=== PATIENT | female | born 1990 ===

== ENCOUNTER 2023-08-11 19:23 | Inpatient (IN) ==
[2023-08-11] MEDS ORDERED: LIDOCAINE 1% LOCAL 20 ML VIAL INFIL PRN (19:34)
--- OUTSIDE RECORDS SUMMARY | 2023-08-11 19:34 | External Medical Summary | Summary of Care ---
Author Name Unknown Organization [facility] Address [address] [place] [address] Phone [phone] Care Team Providers Care High Lift Operator Name Role Phone Unavailable Primary Care Provider Unavailabl e Reason for Visit * Reason Onset Date Comments TRIAGE 08/11/2023 Encounter Details Date Type Department Care Team (Late st Contact Info) Description 08/11/2023 Telephone [facility] [place] [address] [place] [address] Kay Harkins, [address] [place] [address] TRIAGE Allergies Active Allergy Reactions Criticality Noted Date Comments Tetanus Toxoid 03/22/2009 Leg swelling documented as of this encounter (statuses as of 08/11/2023) Medications Medication Sig Dispensed Refills Start Date End Date Status Vitamin 27-0.8 MG Oral Tablet Take by mouth. 0 Active Ferrous Sulfate 325 (65 Fe) MG Oral Tablet (Feosol)Indications:A ntepartum anemia complicating Take 1 Tablet by mouth in the morning and 1 Tablet before bedtime. 60 Tablet 3 06/04/2023 Active Vitamin C 250 MG Oral Tablet ChewableIndications:A ntepartum anemia complicating Take 1 Tablet by mouth in the morning and 1 Tablet before bedtime. Take with iron. 60 Tablet 3 06/04/2023 Active Vitamin B-12 1000 MCG Oral Tablet (Cyanocobalamin)Indic ations:Antepartum anemia complicating Take 1 Tablet by mouth in the morning. 30 Tablet 3 06/04/2023 Active OneTouch Verio Flex System w/Device KitIndications:Gestat ional diabetes mellitus (GDM), antepartum, gestational diabetes method of control unspecified Use to test blood sugars 4 times daily (fasting, 1 hour after breakfast, lunch, and dinner) 1 Kit 0 06/04/2023 Active SolarCity In Vitro Strip (Glucose Blood)Indications:Ges tational diabetes mellitus (GDM), antepartum, gestational diabetes method of control unspecified Use to test blood sugars 4 times daily (fasting, 1 hour after breakfast, lunch, and dinner) 125 Strip 6 06/04/2023 Active Doblet [employer] Lancets 30GIndications:Gestat ional diabetes mellitus (GDM), antepartum, gestational diabetes method of control unspecified Use to test blood sugars 4 times daily (fasting, 1 hour after breakfast, lunch, and dinner) 200 Each 6 06/04/2023 Active Breast Pump Dispense double electric breast pump. Dx:Z39.1 1 Each 0 07/15/2023 Active Sertraline HCl 100 MG Oral Tablet (Zoloft)Indications:G AD (generalized anxiety disorder) Take 1 Tablet by mouth in the morning. In the morning.. 30 Tablet 3 07/16/2023 Active documented as of this encounter (statuses as of 08/11/2023) Active Problems Problem Noted Date Diagnosed Date with 27 completed weeks gestation 05/17 Gestational diabetes mellitus (GDM), antepartum 06/04/2023 Overview: Diagnosed at 27 weeks Nutrition consult ordered Lab Results Component Value Date/Time 50-G GESTATIONAL GLUCOSE, 1 HOUR - [facility] 196 (H) 03/06/2023 02:51 PM 100-G GESTATIONAL GLUCOSE, 1 HOUR - [facility] 226 (H) 06/03/2023 09:08 AM 100-G GESTATIONAL GLUCOSE, 2 HOUR - [facility] 201 (H) 06/03/2023 10:08 AM 100-G GESTATIONAL GLUCOSE, 3 HOUR - [facility] 150 (H) 06/03/2023 11:06 AM 100-G GESTATIONAL GLUCOSE, FASTING - [facility] 109 (H) 06/03/2023 08:03 AM She reports her home blood glucose as following: DATE Fasting 1 hr after Breakfast 1 hr after Lunch 1 hr after Dinner 06/04/23 Picked up meter 06/05/2023 95 Fasted 12 hours 132 87 x 06/05/23: MFM ADAPT consult complete. Enrolled in [facility]. Instructions provided to report blood sugars each week for MFM review Discussed having bedtime snack (20-30 gr carbohydrate + protein) and fasting for no longer than 8-10 hours overnight. 06/10/23- elevated sugars will schedule patient for follow up adapt appt 06/12/23: ADAPT visit complete; some elevated FBS; patient deferred starting medication today as she feels that her FBS are improving with fasting 9 hours overnight along with having a bedtime snack; agreeable to F/U ADAPT - scheduled on 06/17/2023 @ 8AM 06/17/23: ADAPT follow-up completed. Almost all FBS WNL; only one elevation this morning. Continue diet control; Nutrition consult scheduled tomorrow (06/17). Patient prefers to schedule F/U ADAPT if needed; will review via [facility] [employer] in 1 week. 06/24/23: RPM reviewed; stable; continue diet controlled 07/02/23-stable 07/08/23: RPM reviewed. Blood sugars stable; continue diet control. 07/15/23: RPM reviewed. A few PP elevations, but stable overall. Continue diet control. 07/22/23: RPM reviewed; overall stable. Continue diet control. 07/29/[id number] 08/05/23: RPM reviewed; Stable Last Assessment & Plan: Working with ADAPT. Antepartum anemia complicating 024 Overview: Rx iron and vit B12 27 wks Uterine fibroid in 01/29/2023 Overview: Uterine fibroids noted in dating ultrasound EXAM: US PELVIS TRANS-VAGINAL OB 01/29/2023 HISTORY: dating COMPARISON: None available FINDINGS: Patient's reported last menstrual. Date of 11/25/2022 currently corresponds to mean menstrual age 9 weeks 2 days. Uterus is enlarged and somewhat lobulated. It is visualized myometrial echotexture is heterogeneous. Three focal lesions are identified which are nonspecific but compatible with uterine leiomyoma/fibromas. One is located in the lower uterine segment to right of midline measuring 6.4 cm x 5.4 cm x 5.6 cm. A 2nd is located in the lower uterine segment to left of midline measuring approximally 3.6 cm x 2.5 cm x 3.3 cm. A 3rd is located in the fundus of the uterus measuring approximately 10.2 cm x 7.5 cm x 12.8 cm Within the uterus is demonstrated an ovoid structure compatible with gestational sac. A yolk sac is identified measuring 3 mm in diameter. An embryo is identified with mean crown-rump length of 21 mm corresponding to mean menstrual age 8 weeks 5 days +/-5 days and corresponding to CLAUDINE of 09/05/2023. Positive heart motion is seen with a current documented rate of 178 beats per minute. Right ovary: 4.1 cm x 2.6 cm x 1.6 cm corresponding to volume approximately 9 cc. Left ovary: 4.1 cm x 1.8 cm x 2.2 cm corresponding to volume approximately 8 cc. Each ovary contains a tiny subcentimeter ovoid well-defined sonolucent (allowing for technical artifact) structure ultrasonographically nonspecific but compatible with follicles. Additionally in the right ovary there is a complex predominantly hypoechoic to isoechoic area measuring approximally 2.4 cm x 2.0 cm x 2.0 cm. It is nonspecific but could reflect complicated cyst perhaps corpus luteal in nature. There is otherwise no adnexal mass or cul-de-sac fluid. IMPRESSION: Single intrauterine gestation with CLAUDINE of 09/05/2023 based upon current mean crown-rump length. Leiomyomatous uterus. Please see above discussion. Last Assessment & Plan: I reviewed the ultrasound with her. The anatomy that was visualized appears unremarkable and the overall estimated weight is consistent with the 60th percentile for the gestational age. The fetus is in the breech presentation and the amniotic fluid volume is normal at 16 cm. The fibroids are again seen. The largest fibroid measures 10 cm in its largest diameter and there is necrosis/liquefaction in the center. The other fibroid measures 7.1 cm. There is essentially no change in the size of the fibroids since the last ultrasound. The patient had questions regarding timing of delivery and where she should deliver. I told her that the fibroids are not a medical indication for delivery. At this point, they do not appear to be affecting the growth of the fetus. With respect to where she should deliver, I told her that she should discuss this with her primary OB provider. Due to the size of the fibroids, we will bring her back in 4 weeks for an evaluation of growth. Supervision of high risk in [facility] 01/29/2023 Obesity affecting 01/29/2023 Overview: Pre gravid BMI: 33.6 Class 1 obesity 1 hour GTT ordered but not yet completed by patient Baseline Preeclampsia Labs Lab Results Component Value Date/Time PLATELET AUTO - [facility] 308 01/29/2023 10:28 AM Last Assessment & Plan: She presents for a anatomy survey secondary to class I obesity, multiple uterine fibroids, anxiety, and a history of COVID in (18 weeks). Labs reviewed: -- early 1 hour GCT elevated at 196 -- plans 3 hour GTT tomorrow -- genetic screening ordered but not completed -- reviewed some considerations regarding testing with them, which they will consider further and obtain the test if desired We reviewed the results of today's ultrasound. The estimated weight is appropriate for gestational age. The visualized anatomy is unremarkable in appearance. The amniotic fluid amount appears normal. Multiple uterine fibroids are noted. The largest measures 13.7 cm and the next largest is 6.3 cm. They do not appear to obstruct the lower uterus. We discussed that ultrasound is not able to identify all anomalies, but it is reassuring that no anomalies were seen today. Anxiety during 01/29/2023 Overview: Anxiety Follows with psychology and psychiatry Doing well on Zoloft Reports a stable mood in . Denies any suicidal or homicidal ideation. Reports she has a good support system at home. Last Assessment & Plan: ANXIETY AND DEPRESSION CONSIDERATIONS: Untreated maternal anxiety and depression may be associated with an increased risk of multiple poor obstetrical outcomes including miscarriages, low weight, and delivery. Women with a history of anxiety or depression are at risk for recurrence both during and/or the period. Studies of first-trimester SSRI exposure do not demonstrate consistent data to support an increased risk for structural malformations. Anti-anxiety or depression medications have been associated with transient effects (withdrawal syndrome). RECOMMENDATIONS: Mental illness can and should be treated during when the benefits of treatment outweigh potential risks. Referral to behavioral health services as clinically indicated. Anxiety 01/28/2023 Shortness of breath 05/06/2009 Lumbago 03/22/2009 Estimated Date of Delivery Comme nts Yes 09/01/2023 Based on last me nstrual period of 11/25/2022 (Exact Date) documented as of this encounter (statuses as of 08/11/2023) Resolved Problems Problem Noted Date Diagnosed Date Resolved Date Supervision of high risk pre gnancy in first trimester 02/11/2023 06/04/2023 with 11 completed weeks gestation 02/11/2023 04/10/2023 documented as of this encounter (statuses as of 08/11/2023) Social History Tobacco Use Types Packs/Day Years Used Date Smoking Tobacco: Never Smokeless Tobacco: Never Alcohol Use Standard Drinks/Week Comments Not Currently 0 (1 standard drink = 0.6 oz pur e alcohol) denies during AUDIT-C Answer Date Recorded Q1: How often do you have a drink containing alc ohol? 2-4 times a month 05/14/2022 Q2: How many drinks containi ng alcohol do you have on a typical day when you are drinking? 1 or 2 05/14/2022 Q3: How often do you have si x or more drinks on one occasion? Never 05/14/2022 Hunger Vital Sign Answer Date Recorded Within the past 12 months, y ou worried that your food would run out before you got the money to buy more. Never true 01/16/20 Within the past 12 months, t he food you bought just didn't last and you didn't have money to get more. Never true 01/15/2023 [place] Depression Scale Answer Date Recorded [place] Depression Scale Total 3 08/06/2023 The thought of harming myself has occurred to me . Never 08/06/2023 Estimated Date of Delivery Comme nts Yes 09/01/2023 Based on last me nstrual period of 11/25/2022 (Exact Date) Sex and Gender Information Value Date Recorded Sex Assigned at Female 01/15/2023 7:13 PM EDT Gender Identity Female 01/15/2023 7:13 PM EDT Sexual Orientation Straight 01/15/2023 7: 13 PM EDT Job Start Date Occupation Industry Not on file Not on file Not on file documented as of this encounter Miscellaneous Notes * Telephone Encounter - Kay Harkins DO - 08/11/2023 7:01 PM EDT 08/11/2023 7:01 PM Stella Kern is a 32 year old at 37w0d, with scheduled on 08/28. Patient reports that she is concerned that she has had leakage of fluid with continuous leakage since about an hour ago with significant pain and contractions. Reports that she has her scheduled section given breech p resentation. Reports that [place]5 [place] [facility] [place] [facility] is about 5 minutes away. Recommended to patient that she be evaluated at [facility] instead of [facility]. All questionsanswered, she will present for [facility] for evaluation. Kay Harkins DO documented in this encounter Plan of Treatment Upcoming Encounters Date Type Department Care Team (Latest Contact Info) Description 08/12/2023 10:15 AM EDT Office Visit [facility] [address] [facility] [place] [address] Zhanna Noble CRNP [address] [place] [address] 08/15/2023 9:45 AM EDT Office Visit Protector Plate Attacher Obstetrics Maternal Medicine, [place] [address] [place] [address] Bam [place] DO [address] [place] [address] 08/15/2023 9:45 AM EDT Imaging Radiology [facility], [place] [address] [place] [address] 08/19/2023 11:30 AM EDT Office Visit Gynecology/Obstetri cs [address] [place] [address] Zhanna Noble CRNP [address] [place] [address] 08/29/2023 1:00 PM EDT Hospital Encounter [facility], Women's Lower Level 1st Floor [address], [place] [id number] Armani Mccurdy MD [address] [place] [address] 08/29/2023 1:00 PM EDT - 08/29/2023 3:26 PM EDT Surgery [facility] [facility], Women's Lower Level 1st Floor [address], [place] [id number] Armani Mccurdy MD [address] [place], [place] [id number] DELIVERY AND CARE 10/15/2023 10:00 AM EDT Telemedicine Psychiatry, [place] [address], [place] [id number] Bam Doe CRNP [address] [place] [address] Scheduled Procedures Name Priority Associated Diagnoses Date/Ti me DELIVERY AND CARE 39 weeks gestation of 08/29/2023 1:00 PM EDT Health Maintenance Due Date Last Done Comments Depression Screening 2000 Hepatitis B (1 of 3 - 19+ 3-dose series) 12/28/2007 COVID-19 Vaccine (2022-2 4 season) 2022 12/05/2020, 08/31/2020 Influenza Vaccine (FLU shot) (Season Ended) 2023 Pap Smear 01/29/2026 01/29/2023 Cervical Cancer Screening 01/30/2028 HPV/Co-Test 01/30/2028 01/29/2023 GARDASIL-HPV IMMUNIZATION SERIES Aged Out No longer eligible b ased on patient's age to complete this topic MENINGOCOCCAL (MENACTRA/MENVEO) Aged Out No longer eligible b ased on patient's age to complete this topic Pneumococcal Vaccine: Pediatrics (0 to 5 Years) and At-Risk Patients (6 to 64 Years) Aged Out No longer eligible b ased on patient's age to complete this topic documented as of this encounter Medical Devices Not on filedocumented as of this encounter
[2023-08-11] MEDS ORDERED: DEXTROSE 50% 50 ML SYRINGE IV PRN (19:35)
[2023-08-11] MEDS ORDERED: INSULIN REGULAR 250 UNITS in SODIUM CHLORIDE 0.9% 247.5 ML IV PRN (19:35)
[2023-08-11] MEDS ORDERED: SODIUM CHLORIDE 0.9% 1,000 ML IV PRN (19:35)
[2023-08-11] MEDS ORDERED: DEXTROSE 5% 1,000 ML IV PRN (19:35)
--- OUTSIDE RECORDS SUMMARY | 2023-08-11 19:35 | External Medical Summary | Summary of Care ---
Author Name Unknown Organization [facility] Address [address] [place] [address] Phone [phone] Care Team Providers Care General Farmworker Name Role Phone Unavailable Primary Care Provider Unavailabl e Reason for Visit * Reason Onset Date Comments Appointment 07/22/2023 Encounter Details Date Type Department Care Team (Late st Contact Info) Description 07/22/2023 Telephone Gynecology/Obstetrics [facility] [address] [facility] [[email or web address]] [place] [address] Zhanna Noble CRNP [address] [facility] [place] [address] Appointment Allergies Active Allergy Reactions Criticality Noted Date Comments Tetanus Toxoid 03/22/2009 Leg swelling documented as of this encounter (statuses as of 07/23/2023) Medications Medication Sig Dispensed Refills Start Date [...] the morning. 30 Tablet 3 06/04/2023 Active Perform[employer] Flex System w/Device KitIndications:Gestat ional diabetes mellitus (GDM), antepartum, gestational diabetes method of control unspecified Use to test blood sugars 4 times daily (fasting, 1 hour after breakfast, lunch, and dinner) 1 Kit 0 06/04/2023 Active ProcureNet[employer]en[employer]ze In Vitro Strip (Glucose Blood)Indications:Ges tational diabetes mellitus (GDM), antepartum, gestational diabetes method of control unspecified Use to test blood sugars 4 times daily (fasting, 1 hour after breakfast, lunch, and dinner) 125 Strip 6 06/04/2023 Active [employer]choice Delica Lancets 30GIndications:Gestat ional diabetes mellitus (GDM), antepartum, [...] as of this encounter (statuses as of 07/23/2023) Active Problems Problem Noted Date Diagnosed Date [...] hr after Lunch 1 hr after Dinner 2/20/24 Picked up meter 06/05/2023 95 Fasted 12 [...] RPM reviewed; overall stable. Continue diet control. Last Assessment & Plan: Working with ADAPT. [...] of growth. Supervision of high risk in [facility] 01/29/2023 Obesity affecting 01/29/2023 Overview: Pre gravid [...] as of this encounter (statuses as of 07/23/2023) Resolved Problems Problem Noted Date Diagnosed Date Resolved Date Supervision of high risk pre gnancy in first trimester 02/11/2023 06/04/2023 with 11 completed weeks gestation 02/11/2023 04/10/2023 documented as of this encounter (statuses as of 07/23/2023) Social History Tobacco Use Types Packs/Day Years [...] money to buy more. Never true 01/16/20 23 Within the past 12 months, t he food you bought just didn't last and you didn't have money to get more. Never true 01/15/2023 [place] Depression Scale Answer Date Recorded [place] Depression Scale Total 4 01/29/2023 The thought of harming myself has occurred to me . Never 01/29/2023 Estimated Date of Delivery Comme nts Yes [...] encounter Miscellaneous Notes * Telephone Encounter - Ketty Padilla RN - 07/23/2023 10:37 AM EDT Patient wants to establish care at peds for baby, would like to discuss setting up an appointment to meet with a copper plater prior to delivery. Is there a scheduling pool you can forward to? I am not familiar with the pediatrics pools. * Telephone Encounter - Helen Bravo LPN - 07/23/2023 10:33 AM EDT Please route to correct pool. Not a peds patient. * Telephone Encounter - Ketty Padilla RN - 07/23/2023 10:32 AM EDT Please see below. * Telephone Encounter - Kelly Garcia LPN - 07/23/2023 10:07 AM EDT This is not a family practice patient. Routing to ENGINEERING PATTERNMAKER. * Telephone Encounter - Caroline Corona OSA - 07/22/2023 5:58 PM EDT Pts called in stating they are due August 31 and are requesting to get set up with a copper plater and they are interested in being set up with Sedrick payton in [place] as their copper plater. documented in this encounter Plan of Treatment Upcoming Encounters Date Type Department Care Team (Late st Contact Info) Description 08/05/2023 10:15 AM EDT Office Visit Gynecology/Obstetrics [facility] [address] [facility] [[email or web address]] [place] [address] Zhanna Noble CRNP [address] [place] [address] 08/12/2023 10:15 AM EDT Office Visit Gynecology/Obstetrics [facility] [address] [facility] [place] [address] Zhanna Noble CRNP [address] [place] [address] 08/15/2023 9:45 AM EDT Office Visit Employment And Claims Aide Obstetrics Maternal Medicine, [place] [address] [place] [address] Bam [place] DO [address] [place] [address] 08/15/2023 9:45 AM EDT Imaging Radiology [facility] [place] [address] [place] [address] 08/19/2023 11:30 AM EDT Office Visit Gynecology/Obstetrics [address] [place] [address] Zhanna Noble CRNP [address] [place] [address] 10/15/2023 10:00 AM EDT Telemedicine Psychiatry, [place] [address] [place] [address] Bam Doe CRNP [address] [place] [address] Health Maintenance Due Date Last Done Comments [...]
--- OUTSIDE RECORDS SUMMARY | 2023-08-11 19:35 | External Medical Summary | Summary of Care ---
Author Name Unknown Organization [facility] Address [address] [place] [address] Phone [phone] Care Team Providers Care Welt Insole Channeler Name Role Phone Unavailable Primary Care Provider Unavailabl e Reason for Visit * Reason Onset Date Comments Appointment 07/22/2023 Encounter Details Date Type Department Care Team (Late st Contact Info) Description 07/22/2023 Telephone Gynecology/Obstetrics [facility] [address] [facility] [place] [address] Zhanna Noble CRNP [address] [place] [address] Appointment Allergies Active Allergy Reactions Criticality Noted [...] the morning. 30 Tablet 3 06/04/2023 Active eGames Flex System w/Device KitIndications:Gestat ional diabetes mellitus (GDM), antepartum, gestational diabetes method of control unspecified Use to test blood sugars 4 times daily (fasting, 1 hour after breakfast, lunch, and dinner) 1 Kit 0 06/04/2023 Active Wediauch [employer] In Vitro Strip (Glucose Blood)Indications:Ges tational diabetes mellitus (GDM), antepartum, gestational diabetes method of control unspecified Use to test blood sugars 4 times daily (fasting, 1 hour after breakfast, lunch, and dinner) 125 Strip 6 06/04/2023 Active InfluxDB Delica Lancets 30GIndications:Gestat ional diabetes mellitus (GDM), [...] of growth. Supervision of high risk in [facility] 01/29/2023 Obesity affecting 01/29/2023 Overview: Pre [...] money to get more. Never true 01/15/2023 [place] Depression Scale Answer Date Recorded [place] Depression Scale Total 4 01/29/2023 The thought [...] up an appointment to meet with a curtain supervisor prior to delivery. Is there a scheduling [...] not a family practice patient. Routing to STREET SWEEPER OPERATOR. * Telephone Encounter - Caroline Corona OSA - 07/22/2023 5:58 PM EDT Pts called in stating they are due August 31 and are requesting to get set up with a curtain supervisor and they are interested in being set up with Sedrick payton in [place] as their curtain supervisor. documented in this encounter Plan of Treatment Upcoming Encounters Date Type Department Care Team (Late st Contact Info) Description 08/05/2023 10:15 AM EDT Office Visit Gynecology/Obstetrics [facility] [address] [facility] [place] [address] Zhanna Noble CRNP [address] [place] [address] 08/12/2023 10:15 AM EDT Office Visit Gynecology/Obstetrics [facility] [address] [facility] [place] [address] Zhanna Noble CRNP [address] [place] [address] 08/15/2023 9:45 AM EDT Office Visit Addiction Nurse Obstetrics Maternal Medicine, [place] [address] [place] [address] Bam [place] DO [address] [place] [address] 08/15/2023 9:45 AM EDT Imaging Radiology [facility] [place] [address] [place] [address] 08/19/2023 11:30 AM EDT Office Visit Gynecology/Obstetrics [address] [place] [address] Zhanna Noble CRNP [address] [place] [address] 10/15/2023 10:00 AM EDT Telemedicine Psychiatry, [place] [address] [place] [address] Bam Doe CRNP [address] [place] [address] Health Maintenance Due Date Last [...]
--- OUTSIDE RECORDS SUMMARY | 2023-08-11 19:35 | External Medical Summary | Summary of Care ---
Author Name Unknown Organization [facility] Address [address] [place] [address] Phone [phone] Care Team Providers Care Machine Wood Sander Name Role Phone Unavailable Primary Care Provider Unavailabl e Reason for Visit * Reason Onset Date Comments Follow Up 08/11/2023 Encounter Details Date Type Department Care Team (Late st Contact Info) Description 08/11/2023 Telephone [facility] Obstetrics [address] [place] [address] Alisha White DO [address] [place] [address] Follow Up Allergies Active Allergy Reactions Criticality Noted Date [...] and dinner) 1 Kit 0 06/04/2023 Active Genome In Vitro Strip (Glucose Blood)Indications:Ges tational diabetes mellitus (GDM), antepartum, gestational diabetes method of control unspecified Use to test blood sugars 4 times daily (fasting, 1 hour after breakfast, lunch, and dinner) 125 Strip 6 06/04/2023 Active W[employer] Group Lancets 30GIndications:Gestat ional diabetes mellitus (GDM), antepartum, [...] RPM reviewed; overall stable. Continue diet control. 07/29/[id number] 08/05/23: RPM reviewed; Stable Last Assessment & [...] growth. Supervision of high risk in [facility] 01/29/2023 Obesity affecting 01/29/2023 Overview: Pre gravid [...] money to get more. Never true 01/15/2023 [place] Depression Scale Answer Date Recorded [place] Depression Scale Total 3 08/06/2023 The thought [...] encounter Miscellaneous Notes * Telephone Encounter - Alisha White DO - 08/11/2023 5:56 PM EDT Stella Kern, 32 year old, at 37w0d. Returned call to triage line, verified identity with name and . Called twice without answer. documented in this encounter Plan of Treatment Upcoming Encounters Date Type Department Care Team (Latest Contact Info) Description 08/12/2023 10:15 AM EDT Office Visit Gynecology/Obstetri [facility] [address] [place] [address] Zhanna Noble CRNP [address] [place] [address] 08/15/2023 9:45 AM EDT Office Visit Data Software Engineer Obstetrics Maternal Medicine, [place] [address] [place] [address] Bam Wilson DO [address] [place] [facility] [place] [address] 08/15/2023 9:45 AM EDT Imaging Rad[facility] [address] [facility] [address] 08/19/2023 11:30 AM EDT Office Visit Gynecology/Obstetri [address] [place] [address] Zhanna Noble CRNP [address] [place] [address] 08/29/2023 1:00 PM EDT Hospital Encounter [id number] [facility], Women's Lower Level 1st Floor [address] [place] [facility] [place] [address] Armani Mccurdy MD [address] [place] [facility] [place] [address] 08/29/2023 1:00 PM EDT - 08/29/2023 3:26 PM EDT Surgery [facility], OB Triage, Women's Lower Level 1st Floor [address] [place] [address] Armani Mccurdy MD [address] [place] [address] DELIVERY AND CARE 10/15/2023 10:00 AM EDT Telemedicine Psychiatry, [place] [address] [place] [address] Bam Doe CRNP [address] [place] [address] Scheduled Procedures Name Priority Associated [...]
--- OUTSIDE RECORDS SUMMARY | 2023-08-11 19:35 | External Medical Summary | Summary of Care ---
Author Name Unknown Organization [facility] Address [address] [place] [address] Phone [phone] Care Team Providers Care Tailor Women'S Garment Alteration Name Role Phone Unavailable Primary Care Provider Unavailabl e Reason for Visit * Reason Comments Return Visit Encounter Details Date Type Department Care Team (Late st Contact Info) Description 07/30/2023 3:30 PM EDT Nurse Only Gynecology/Obstetrics [facility] 132 [facility] [place] [address] Gw, Nurse Obgyn Injection 132 [place] [address] Return Visit Allergies Active Allergy Reactions Criticality Noted Date Comments Tetanus Toxoid 03/22/2009 Leg swelling documented as of this encounter (statuses as of 07/30/2023) Medications Medication Sig Dispensed Refills Start Date [...] the morning. 30 Tablet 3 06/04/2023 Active V.i. Laboratoriesio Flex System w/Device KitIndications:Gestat ional diabetes mellitus (GDM), antepartum, gestational diabetes method of control unspecified Use to test blood sugars 4 times daily (fasting, 1 hour after breakfast, lunch, and dinner) 1 Kit 0 06/04/2023 Active Leapuch Tabula In Vitro Strip (Glucose Blood)Indications:Ges tational diabetes mellitus (GDM), antepartum, gestational diabetes method of control unspecified Use to test blood sugars 4 times daily (fasting, 1 hour after breakfast, lunch, and dinner) 125 Strip 6 06/04/2023 Active [employer] Delica Lancets 30GIndications:Gestat ional diabetes mellitus (GDM), [...] as of this encounter (statuses as of 07/30/2023) Active Problems Problem Noted Date Diagnosed Date [...] MFM ADAPT consult complete. Enrolled in [facility]. Instructions provided to report blood sugars each [...] RPM reviewed; overall stable. Continue diet control. 07/29/20230167-[id number] Last Assessment & Plan: Working with ADAPT. [...] of growth. Supervision of high risk in [facility] 01/29/2023 Obesity affecting 01/29/2023 Overview: Pre [...] as of this encounter (statuses as of 07/30/2023) Resolved Problems Problem Noted Date Diagnosed Date Resolved Date Supervision of high risk pre gnancy in first trimester 02/11/2023 06/04/2023 with 11 completed weeks gestation 02/11/2023 04/10/2023 documented as of this encounter (statuses as of 07/30/2023) Social History Tobacco Use Types Packs/Day Years [...] money to get more. Never true 01/15/2023 [place] Depression Scale Answer Date Recorded [place] Depression Scale Total 4 01/29/2023 The thought [...] on file documented as of this encounter Last Filed Vital Signs Vital Sign Reading Time Taken Comments Blood Pressure 110/74 07/30/2023 3:30 PM EDT Pulse - - Temperature - - Respiratory Rate - - Oxygen Saturation - - Inhaled Oxygen Concentration - - Weight 95.2 kg (209 lb 12.8 oz) 07/30/2023 3:30 PM EDT Height - - Body Mass Index 34.91 07/15/2023 11:52 AM EDT documented in this encounter Progress Notes * Brianda Dempsey LPN - 07/30/2023 3:34 PM EDT Pt is currently 35w2d with an Estimated Date of Delivery: 09/01/23 - 7+ weight gain in 15 days documented in this encounter Nursing Notes * Brianda Dempsey LPN - 07/30/2023 3:39 PM EDT Pt is currently 35w2d with an Estimated Date of Delivery: 09/01/23 - Patient with headaches, dizzy, nauseated. BP check in office WNL, neg protein in urine. 7lb weight gain in 15 days. Patient checking BPs at home via wrist cuff. Will bring with her to next visit. Patient to monitor and let us know if things change. Tylenol for headaches, push fluids. Reviewed with Dr. De Anda who agrees with plan of care. documented in this encounter Plan of Treatment Upcoming Encounters Date Type Department Care Team (Late st Contact Info) Description 08/06/2023 8:15 AM EDT Office Visit Gynecology/Obstetrics [facility] [place] [address] [place] [address] Zhanna Noble CRNP [address] [place] [address] 08/07/2023 2:20 PM EDT Office Visit Pediatrics [facility] [address] [facility] [place] [address] Sedrick Rg MD [address] [place] [address] 08/12/2023 10:15 AM EDT Office Visit Gynecology/Obstetrics [facility] [place] [address] Zhanna [facility] CRNP [facility] [place] [address] 08/15/2023 9:45 AM EDT Office Visit Conference Planner Obstetrics Maternal Medicine, [place] [address] [place] [address] Bam Wilson DO [address] [place] [address] 08/15/2023 9:45 AM EDT Imaging Radiology [facility] [place] [address] [place] [address] 08/19/2023 11:30 AM EDT Office Visit Gynecology/Obstetrics [address] [place] [address] Zhanna Noble CRNP 132 [facility] [address] 10/15/2023 10:00 AM EDT Telemedicine Psychiatry, [place] [address] [place] [address] Bam Doe CRNP [address] [place] [address] Health Maintenance Due Date Last [...] Not on filedocumented as of this encounter Visit Diagnoses Diagnosis Uterine fibroid in - Primary Tumors of body of uterus, unspecified as to episode of care in Supervision of high risk in third trimester Unspecified high-risk Obesity affecting Anxiety during Gestational diabetes mellitus (GDM), antepartum Antepartum anemia complicating Anemia, antepartum documented in this encounter
--- OUTSIDE RECORDS SUMMARY | 2023-08-11 19:35 | External Medical Summary | Summary of Care ---
Author Name Unknown Organization [facility] Address [address] [place] [address] Phone [phone] Care Team Providers Care Band Builder Name Role Phone Unavailable Primary Care Provider Unavailabl e Reason for Visit * Reason Comments Return Visit Encounter Details Date Type Department Care Team (Late st Contact Info) Description 07/30/2023 3:30 PM EDT Nurse Only Gynecology/Obstetrics [facility] 132 [facility] [place] [address] Gw, Nurse Obgyn Injection 132 [place] [address] Return Visit Allergies Active Allergy Reactions Criticality [...] the morning. 30 Tablet 3 06/04/2023 Active FishBrainio Flex System w/Device KitIndications:Gestat ional diabetes mellitus (GDM), antepartum, gestational diabetes method of control unspecified Use to test blood sugars 4 times daily (fasting, 1 hour after breakfast, lunch, and dinner) 1 Kit 0 06/04/2023 Active World View Enterprisesuch Lellan In Vitro Strip (Glucose Blood)Indications:Ges tational diabetes mellitus (GDM), antepartum, gestational diabetes method of control unspecified Use to test blood sugars 4 times daily (fasting, 1 hour after breakfast, lunch, and dinner) 125 Strip 6 06/04/2023 Active [employer] Delica Lancets 30GIndications:Gestat ional diabetes mellitus (GDM), [...] MFM ADAPT consult complete. Enrolled in Current [facility]. Instructions provided to report blood sugars [...] RPM reviewed; overall stable. Continue diet control. 07/29/[id number] Last Assessment & Plan: Working with ADAPT. [...] of growth. Supervision of high risk in [facility] 01/29/2023 Obesity affecting 01/29/2023 Overview: Pre [...] money to get more. Never true 01/15/2023 [place] Depression Scale Answer Date Recorded [place] Depression Scale Total 4 01/29/2023 The thought [...] Visit Gynecology/Obstetrics [place] [address] [place] [address] Zhanna Noble CRNP [address] [place] [address] 08/07/2023 2:20 PM EDT Office Visit Pediatrics [facility] [address] [facility] [place] [address] Sedrick Rg MD [address] [place] [address] 08/12/2023 10:15 AM EDT Office Visit Gynecology/Obstetrics [facility] [place] [address] Zhanna Noble CRNP [facility] [place] [address] 08/15/2023 9:45 AM EDT Office Visit Potato Chip Packaging Machine Operator Obstetrics Maternal [facility], [place] [address] [place] [address] Bam Wilson DO [address] [place] [address] 08/15/2023 9:45 AM EDT Imaging Radiology [facility] [place] [address] [place] [address] 08/19/2023 11:30 AM EDT Office Visit Gynecology/Obstetrics [address] [place] [address] Zhanna Noble CRNP 132 [facility] [address] 10/15/2023 10:00 AM EDT Telemedicine Psychiatry, [place] [address] [place] [address] Bam Doe CRNP [address] [place] [address] Health Maintenance Due Date Last [...]
--- OUTSIDE RECORDS SUMMARY | 2023-08-11 19:35 | External Medical Summary | Summary of Care ---
Author Name Unknown Organization [facility] Address [address] [place] [address] Phone [phone] Care Team Providers Care Adz Worker Name Role Phone Unavailable Primary Care Provider Unavailabl e Reason for Visit * Reason Onset Date Comments Appointment 07/22/2023 Encounter Details Date Type Department Care Team (Late st Contact Info) Description 07/22/2023 Telephone Gynecology/Obstetrics [facility] [address] [facility] [place] [address] Zhanna Noble CRNP [address] [facility] [place] [address] Appointment Allergies Active Allergy Reactions Criticality Noted [...] the morning. 30 Tablet 3 06/04/2023 Active Ryzing Flex System w/Device KitIndications:Gestat ional diabetes mellitus (GDM), antepartum, gestational diabetes method of control unspecified Use to test blood sugars 4 times daily (fasting, 1 hour after breakfast, lunch, and dinner) 1 Kit 0 06/04/2023 Active Spiceworksuch Nines [employer]ovoltaic In Vitro Strip (Glucose Blood)Indications:Ges tational diabetes mellitus (GDM), antepartum, gestational diabetes method of control unspecified Use to test blood sugars 4 times daily (fasting, 1 hour after breakfast, lunch, and dinner) 125 Strip 6 06/04/2023 Active InsideAxis™ Delica Lancets 30GIndications:Gestat ional diabetes mellitus (GDM), [...] of growth. Supervision of high risk in [facility] 01/29/2023 Obesity affecting 01/29/2023 Overview: Pre gravid [...] money to get more. Never true 01/15/2023 [place] Depression Scale Answer Date Recorded [place] Depression Scale Total 4 01/29/2023 The thought [...] encounter Miscellaneous Notes * Telephone Encounter - Helen Bravo LPN - 07/23/2023 10:33 AM EDT Please route to correct pool. Not a peds patient. * Telephone Encounter - Ketty Padilla RN - 07/23/2023 10:32 AM EDT Please see below. * Telephone Encounter - Kelly Garcia LPN - 07/23/2023 10:07 AM EDT This is not a family practice patient. Routing to BUSINESS DEVELOPMENT COORDINATOR. * Telephone Encounter - Caroline Corona OSA - 07/22/2023 5:58 PM EDT Pts called in stating they are due August 31 and are requesting to get set up with a rating specialist and they are interested in being set up with Sedrick payton in [place] as their rating specialist. documented in this encounter Plan of Treatment Upcoming Encounters Date Type Department Care Team (Late st Contact Info) Description 08/05/2023 10:15 AM EDT Office Visit Gynecology/Obstetrics [facility] [place] [address] [place] [address] Zhanna Noble CRNP [address] [place] [address] 08/12/2023 10:15 AM EDT Office Visit Gynecology/Obstetrics [facility] [place] [address] [place] [address] Zhanna Noble CRNP [address] [place] [address] 08/15/2023 9:45 AM EDT Office Visit Dross Puller Obstetrics [facility], [place] [address] [place] [address] Bam Wilson DO [address] [place] [address] 08/15/2023 9:45 AM EDT Imaging Radiology [facility] [place] [address] [place] [address] 08/19/2023 11:30 AM EDT Office Visit Gynecology/Obstetrics [address] [place] [address] Zhanna Noble CRNP [address] [place] [address] 10/15/2023 10:00 AM EDT Telemedicine Psychiatry, [place] [address] [place] [address] Bam Doe CRNP [address] [place] [address] Health Maintenance Due Date Last [...]
--- OUTSIDE RECORDS SUMMARY | 2023-08-11 19:35 | External Medical Summary | Summary of Care ---
Author Name Unknown Organization [facility] Address [address] [place] [address] Phone [phone] Care Team Providers Care Care Coordinator Name Role Phone Unavailable Primary Care Provider Unavailabl e Reason for Visit * Reason Comments Return Visit Encounter Details Date Type Department Care Team (Late st Contact Info) Description 08/06/2023 8:15 AM EDT Office Visit Gynecology/Obstetric s [facility] [place] [address] [place] [address] Zhanna Noble CRNP [address] [facility] [address] Supervision of high risk in third trimester*; Uterine fibroid in ; Obesity affecting , antepartum, unspecified obesity type; Anxiety during ; Diet controlled gestational diabetes mellitus (GDM), antepartum; Antepartum anemia complicating Allergies Active Allergy Reactions Criticality Noted Date Comments Tetanus Toxoid 03/22/2009 Leg swelling documented as of this encounter (statuses as of 08/06/2023) Medications Medication Sig Dispensed Refills Start Date [...] the morning. 30 Tablet 3 06/04/2023 Active EthicsGame Verio Flex System w/Device KitIndications:Gestat ional diabetes mellitus (GDM), antepartum, gestational diabetes method of control unspecified Use to test blood sugars 4 times daily (fasting, 1 hour after breakfast, lunch, and dinner) 1 Kit 0 06/04/2023 Active Socialmoth In Vitro Strip (Glucose Blood)Indications:Ges tational diabetes mellitus (GDM), antepartum, gestational diabetes method of control unspecified Use to test blood sugars 4 times daily (fasting, 1 hour after breakfast, lunch, and dinner) 125 Strip 6 06/04/2023 Active [employer]Game Delica Lancets 30GIndications:Gestat ional diabetes mellitus (GDM), [...] as of this encounter (statuses as of 08/06/2023) Active Problems Problem Noted Date Diagnosed Date [...] 11:06 AM 100-G GESTATIONAL GLUCOSE, FASTING - VANITA 109 (H) 06/03/2023 08:03 AM She reports her home blood glucose as following: DATE Fasting 1 hr after Breakfast 1 hr after Lunch 1 hr after Dinner 06/04/23 Picked up meter 06/05/2023 95 Fasted 12 hours 132 87 x 06/05/23: MFM ADAPT consult complete. Enrolled in Current [facility]. Instructions provided to report blood sugars [...] RPM reviewed; overall stable. Continue diet control. 07/29/[id number] 08/05/23: RPM reviewed; Stable Last Assessment & [...] of growth. Supervision of high risk in [facility] 01/29/2023 Obesity affecting 01/29/2023 Overview: [...] as of this encounter (statuses as of 08/06/2023) Resolved Problems Problem Noted Date Diagnosed Date Resolved Date Supervision of high risk pre gnancy in first trimester 02/11/2023 06/04/2023 with 11 completed weeks gestation 02/11/2023 04/10/2023 documented as of this encounter (statuses as of 08/06/2023) Social History Tobacco Use Types Packs/Day Years [...] money to get more. Never true 01/15/2023 [place] Depression Scale Answer Date Recorded [place] Depression Scale Total 3 08/06/2023 The thought [...] Sign Reading Time Taken Comments Blood Pressure 110/70 08/06/2023 8:09 AM EDT Pulse - - Temperature - - Respiratory Rate - - Oxygen Saturation - - Inhaled Oxygen Concentration - - Weight 93.4 kg (206 lb) 08/06/2023 8:09 AM EDT Height - - Body Mass Index 34.28 07/15/2023 11:52 AM EDT documented in this encounter Progress Notes * Zhanna Noble CRNP - 08/06/2023 8:36 AM EDT 36w2d Baby was breech on last u/s. Agreeable to scheduling primary C/s at [facility]. Will call to get this set up today. No other concerns. Baby is active. Denies contractions, bleeding, LOF. GBS done today. Infection Control Rn Documentation Provider requested cobol developer. Name of cobol developer: Santa. Has growth u/s next week with MFM. RAULITO Tariq documented in this encounter Nursing Notes * Sandra Horne LPN - 08/06/2023 8:11 AM EDT 36w2d Denies vaginal bleeding/rom + movement Discuss baby position documented in this encounter Plan of Treatment Upcoming Encounters Date Type Department Care Team (Late st Contact Info) Description 08/07/2023 2:20 PM EDT Office Visit Pediatrics [facility] 132 [facility] [place] [address] Sedrick Rg MD [facility] [place] [address] 08/12/2023 10:15 AM EDT [facility] [address] [facility] [place] [address] Zhanna Noble CRNP [address] [facility] [address] 08/15/2023 9:45 AM EDT Office Visit Shaker Repairer Obstetrics Maternal Medicine, [place] [address] [place] [address] Bam Wilson DO [address] [place] [address] 08/15/2023 9:45 AM EDT Imaging Radiology [facility], [place] [address] [place] [address] 08/19/2023 11:30 AM EDT Office Visit Gynecology/Obstetrics [address] [place] [address] Zhanna Noble CRNP [facility] [place] [address] 10/15/2023 10:00 AM EDT Telemedicine Psychiatry, [place] [address] [place], [place] [id number] Bam Doe CRNP [address] [place] [address] Pending Results Name Type Priority Associated Diagnoses Date /Time GROUP B STREP CULTURE/PCR Lab Routine Supervision of high risk in third trimester 08/06/2023 8:43 AM EDT Health Maintenance Due Date Last Done [...] as of this encounter Visit Diagnoses Diagnosis Supervision of high risk in third trimester- Primary Unspecified high-risk Uterine fibroid in Tumors of body of uterus, unspecified as to episode of care in Obesity affecting , antepartum, unspecified obesity type Anxiety during Diet controlled gestational diabetes mellitus (GDM), antepartum Antepartum anemia complicating Anemia, antepartum documented in this encounter
--- OUTSIDE RECORDS SUMMARY | 2023-08-11 19:35 | External Medical Summary | Summary of Care ---
Author Name Unknown Organization [facility] Address [address] [place] [address] Phone [phone] Care Team Providers Care Training Representative Name Role Phone Unavailable Primary Care Provider Unavailabl e Reason for Visit * Reason Onset Date Comments Appointment 07/22/2023 Encounter Details Date Type Department Care Team (Late st Contact Info) Description 07/22/2023 Telephone Gynecology/Obstetrics [facility] [address] [facility] [place] [address] Zhanna Noble CRNP [address] [place] [address] Appointment Allergies Active Allergy Reactions Criticality Noted [...] the morning. 30 Tablet 3 06/04/2023 Active copygram Flex System w/Device KitIndications:Gestat ional diabetes mellitus (GDM), antepartum, gestational diabetes method of control unspecified Use to test blood sugars 4 times daily (fasting, 1 hour after breakfast, lunch, and dinner) 1 Kit 0 06/04/2023 Active Pl[employer]uch Docalytics In Vitro Strip (Glucose Blood)Indications:Ges tational diabetes mellitus (GDM), antepartum, gestational diabetes method of control unspecified Use to test blood sugars 4 times daily (fasting, 1 hour after breakfast, lunch, and dinner) 125 Strip 6 06/04/2023 Active Prepared Response Delica Lancets 30GIndications:Gestat ional diabetes mellitus (GDM), [...] of growth. Supervision of high risk in [facility] 01/29/2023 Obesity affecting 01/29/2023 Overview: Pre [...] money to get more. Never true 01/15/2023 [place] Depression Scale Answer Date Recorded [place] Depression Scale Total 4 01/29/2023 The thought [...] encounter Miscellaneous Notes * Telephone Encounter - Kristine Rey LPN - 07/23/2023 11:09 AM EDT Please schedule and call dad * Telephone Encounter - Ketty Padilla RN - 07/23/2023 10:37 AM EDT Patient wants to establish care at peds for baby, would like to discuss setting up an appointment to meet with a boat outfitter prior to delivery. Is there a scheduling [...] not a family practice patient. Routing to APPLIANCE PARTS COUNTER CLERK. * Telephone Encounter - Caroline Corona OSA - 07/22/2023 5:58 PM EDT Pts called in stating they are due August 31 and are requesting to get set up with a boat outfitter and they are interested in being set up with Sedrick payton in [place] as their boat outfitter. documented in this encounter Plan of Treatment Upcoming Encounters Date Type Department Care Team (Late st Contact Info) Description 08/05/2023 10:15 AM EDT Office Visit Gynecology/Obstetrics [facility] [address] [facility] [address] Zhanna Noble CRNP [address] [facility] [address] 08/12/2023 10:15 AM EDT Office Visit Gynecology/Obstetrics [facility] [address] [facility] [address] Zhanna Noble CRNP [address] [facility] [address] 08/15/2023 9:45 AM EDT Office Visit Window Covering Sales Consultant Obstetrics Maternal Medicine, [place] [address] [place] [address] Bam Wilson DO [address] [place] [address] 08/15/2023 9:45 AM EDT Imaging Radiology [facility] [place], [place] [address] [place] [address] 08/19/2023 11:30 AM EDT Office Visit Gynecology/Obstetrics [address] [place] [address] Zhanna Noble CRNP [address] [facility] [address] 10/15/2023 10:00 AM EDT Telemedicine Psychiatry, [place] [address] [place] [address] Bam Doe CRNP [address] [place] [address] Health Maintenance Due Date Last [...]
--- OUTSIDE RECORDS SUMMARY | 2023-08-11 19:35 | External Medical Summary | Summary of Care ---
Author Name Unknown Organization [facility] Address [address] [place] [address] Phone [phone] Care Team Providers Care Pit Steward Name Role Phone Unavailable Primary Care Provider Unavailabl e Encounter Details Date Type Department Care Team (Late st Contact Info) Description 08/06/2023 Telephone Gynecology/Obstetrics [facility] [address] [facility] [place] [address] Zhanna Noble CRNP [address] [facility] [address] Allergies Active Allergy Reactions Criticality Noted Date [...] and dinner) 1 Kit 0 06/04/2023 Active OneTouch Verio In Vitro Strip (Glucose Blood)Indications:Ges tational diabetes mellitus (GDM), antepartum, gestational diabetes method of control unspecified Use to test blood sugars 4 times daily (fasting, 1 hour after breakfast, lunch, and dinner) 125 Strip 6 06/04/2023 Active OneTouch Delica Lancets 30GIndications:Gestat ional diabetes mellitus (GDM), [...] MFM ADAPT consult complete. Enrolled in [facility]. Instructions provided to report blood sugars [...] RPM reviewed; overall stable. Continue diet control. 07/29/[id number] 08/05/23: RPM reviewed; Stable Last Assessment & [...] growth. Supervision of high risk in third [facility] pauline 01/29/2023 Obesity affecting 01/29/2023 Overview: Pre gravid [...] money to get more. Never true 01/15/2023 [place] Depression Scale Answer Date Recorded [place] Depression Scale Total 3 08/06/2023 The thought [...] encounter Miscellaneous Notes * Telephone Encounter - Santa Dawson LPN - 08/06/2023 11:[address] [facility] csection 08/29/23. Breech, GDM, large fibroids. Afternoon surgery. Call by 5am. Npo after midnight. documented in this encounter Plan of Treatment Upcoming Encounters Date Type Department Care Team (Late st Contact Info) Description 08/07/2023 2:20 PM EDT Office Visit Pediatrics [facility] [address] [place] [address] Sedrick Rg MD [facility] [place] [address] 08/12/2023 10:15 AM EDT Office Visit Gynecology/Obstetr ics [facility] [address] [place] [address] Zhanna Noble CRNP 132 [place] [address] 08/15/2023 9:45 AM EDT Office Visit [place] Boatman Obstetrics Maternal Medicine, [place] [address] [place] [address] Bam Wilson, [address] [place] [address] 08/15/2023 9:45 AM EDT Imaging Radiology [facility] [place], [place] [address] [place], [place] [address] 08/19/2023 11:30 AM EDT Office Visit Gynecology/Obstetr ics [address] [place] [address] Zhanna Noble CRNP [address] [place] [address] 08/29/2023 1:00 PM EDT Hospital Encounter [id number] [facility], Women's Lower Level 1st Floor [address] [place] [address] Armani Mccurdy MD [address] [place] [address] 08/29/2023 1:00 PM EDT - 08/29/2023 3:26 PM EDT Surgery [address] [facility], OB Triage, Women's Lower Level 1st Floor [address] [place] [address] Armani Mccurdy MD [address], [place] [id number] DELIVERY AND CARE 10/15/2023 10:00 AM EDT Telemedicine Psychiatry, [place] [address], [place] [id number] Bam Doe CRNP [address] [place] [phone] Scheduled Procedures Name Priority Associated Diagnoses Date/Ti [...]
--- OUTSIDE RECORDS SUMMARY | 2023-08-11 19:35 | External Medical Summary | Summary of Care ---
Author Name Unknown Organization [facility] Address [address] [place] [address] Phone [phone] Care Team Providers Care Materials Planner/Production Planner Name Role Phone Unavailable Primary Care Provider Unavailabl e Encounter Details Date Type Department Care Team (Late st Contact Info) Description 07/17/2023 Telephone Gynecology/Obstetrics [facility] [address] [facility] [place] [address] Zhanna Noble CRNP [address] [facility] [address] Allergies Active Allergy Reactions Criticality Noted Date Comments Tetanus Toxoid 03/22/2009 Leg swelling documented as of this encounter (statuses as of 07/17/2023) Medications Medication Sig Dispensed Refills Start Date [...] as of this encounter (statuses as of 07/17/2023) Active Problems Problem Noted Date Diagnosed Date [...] MFM ADAPT consult complete. Enrolled in [facility]. Instructions provided to report blood sugars [...] elevations, but stable overall. Continue diet control. Last Assessment & Plan: [...] see above discussion. Last Assessment & Plan: We reviewed some possible complications of uterine fibroids in . Precautions reviewed. Supervision of high risk in [facility] 01/29/2023 Obesity affecting 01/29/2023 Overview: Pre [...] as of this encounter (statuses as of 07/17/2023) Resolved Problems Problem Noted Date Diagnosed Date Resolved Date Supervision of high risk pre gnancy in first trimester 02/11/2023 06/04/2023 with 11 completed weeks gestation 02/11/2023 04/10/2023 documented as of this encounter (statuses as of 07/17/2023) Social History Tobacco Use Types Packs/Day Years [...] money to get more. Never true 01/15/2023 [place] Depression Scale Answer Date Recorded [place] Depression Scale Total 4 01/29/2023 The thought [...] Telephone Encounter - Ketty Padilla RN - 07/17/2023 9:37 AM EDT Patient wanted breast pump RX sent through [employer]. Uploaded RX. documented in this encounter Plan of Treatment Upcoming Encounters Date Type Department Care Team (Late st Contact Info) Description 07/18/2023 8:00 AM EDT Office Visit City Distribution Clerk [facility] [address] [place] [address] Naseem Ramirez MD [address] [place] [address] 07/18/2023 8:00 AM EDT Imaging Radiology [facility] [address] [facility] [place] [address] 07/19/2023 8:30 AM EDT Telemedicine Nutrition Services, [place] [address] 2nd Floor [address] [place] [address] Desire Multani, RDN [address] [place] [address] 08/05/2023 10:15 AM EDT Office Visit Gynecology/Obstetrics [facility] [address] [facility] [address] Zhanna Noble CRNP [address] [place] [address] 08/12/2023 10:15 AM EDT Office Visit Gynecology/Obstetrics [facility] [address] [facility] [place] [address] Zhanna Noble CRNP [address] [place] [address] 08/19/2023 11:30 AM EDT Office Visit Gynecology/Obstetrics [address] [place] [address] Zhanna Noble CRNP [address] [place] [address] 10/15/2023 10:00 AM EDT Telemedicine Psychiatry, [place] [address] [facility] [address] Bam Doe CRNP [address] [facility], [place] [phone] Health Maintenance Due Date Last Done Comments [...]
--- OUTSIDE RECORDS SUMMARY | 2023-08-11 19:35 | External Medical Summary | Summary of Care ---
Author Name Unknown Organization [facility] Address [address] [place] [address] Phone [phone] Care Team Providers Care Driver'S License Examiner Name Role Phone Unavailable Primary Care Provider Unavailabl e Reason for Visit * Reason Onset Date Comments Advice 08/11/2023 Encounter Details Date Type Department Care Team (Late st Contact Info) Description 08/11/2023 Telephone [facility]stetric[facility] [address] [place] [address] Kay Harkins, [address] [place] [address] Advice Allergies Active Allergy Reactions Criticality Noted Date [...] and dinner) 1 Kit 0 06/04/2023 Active [email or web address] In Vitro Strip (Glucose Blood)Indications:Ges tational diabetes mellitus (GDM), antepartum, gestational diabetes method of control unspecified Use to test blood sugars 4 times daily (fasting, 1 hour after breakfast, lunch, and dinner) 125 Strip 6 06/04/[address] [employer] Lancets 30GIndications:Gestat ional diabetes mellitus (GDM), antepartum, [...] RPM reviewed; overall stable. Continue diet control. 07/29/[id number] 08/05/23: RPM reviewed; Stable Last Assessment & [...] growth. Supervision of high risk in [facility] 01/29/2023 Obesity affecting 01/29/2023 Overview: Pre gravid [...] money to get more. Never true 01/15/2023 [place] Depression Scale Answer Date Recorded [place] Depression Scale Total 3 08/06/2023 The thought [...] Encounter - Kay Harkins DO - 08/11/2023 6:41 PM EDT 08/11/2023 6:41 PM Patient called triage line, attempted to call patient back with no answer x 1. Kay Harkins DO documented in this encounter Plan of Treatment Upcoming Encounters Date Type Department Care Team (Latest Contact Info) Description 08/12/2023 10:15 AM EDT Office Visit Gynecology/Obstetri [facility] [address] [place] [address] Zhanna Noble CRNP [address] [place] [address] 08/15/2023 9:45 AM EDT Office Visit Melt Down Furnace Operator Obstetrics Maternal Medicine, [place] [address] [facility] [place] [address] Bam Wilson DO [address] [facility] [place] [address] 08/15/2023 9:45 AM EDT Imaging Radiology [facility] [address] [facility] [place] [address] 08/19/2023 11:30 AM EDT Office Visit Gynecology/Obstetri [address] [place] [address] Zhanna Noble CRNP [address] [place] [address] 08/29/2023 1:00 PM EDT Hospital Encounter [id number] [facility], Women's Lower Level 1st Floor [address] [facility] [place] [address] Armani Mccurdy MD [address] [facility] [place] [address] 08/29/2023 1:00 PM EDT - 08/29/2023 3:26 PM EDT Surgery OBTR [facility], OB Triage, Women's Lower Level 1st Floor [address] [place] [address] Armani Mccurdy MD [address] [place] [address] DELIVERY AND CARE 10/15/2023 10:00 AM EDT Telemedicine Psychiatry, [place] [address] [place] [address] Bam Doe CRNP [address] [place] [address] Scheduled Procedures Name Priority Associated [...]
--- OUTSIDE RECORDS SUMMARY | 2023-08-11 19:35 | External Medical Summary | Summary of Care ---
Author Name Unknown Organization [facility] Address [address] [place] [address] Phone [phone] Care Team Providers Care Claims Agent Right Of Way Name Role Phone Unavailable Primary Care Provider Unavailabl e Reason for Visit * Reason Comments Return Visit Encounter Details Date Type Department Care Team (Late st Contact Info) Description 08/06/2023 8:15 AM EDT Office Visit Gynecology/Obstetric s [facility] [address] [place] [address] Zhanna Noble CRNP [address] [place] [address] Supervision of high risk in third trimester*; [...] the morning. 30 Tablet 3 06/04/2023 Active [employer] Verio Flex System w/Device KitIndications:Gestat ional diabetes mellitus (GDM), antepartum, gestational diabetes method of control unspecified Use to test blood sugars 4 times daily (fasting, 1 hour after breakfast, lunch, and dinner) 1 Kit 0 06/04/2023 Active [employer] In Vitro Strip (Glucose Blood)Indications:Ges tational diabetes mellitus (GDM), antepartum, gestational diabetes method of control unspecified Use to test blood sugars 4 times daily (fasting, 1 hour after breakfast, lunch, and dinner) 125 Strip 6 06/04/2023 Active [employer] Delica Lancets 30GIndications:Gestat ional diabetes mellitus (GDM), [...] MFM ADAPT consult complete. Enrolled in Current [facility]. Instructions provided to report blood sugars [...] RPM reviewed; overall stable. Continue diet control. 07/29/[id number] 08/05/23: RPM reviewed; Stable Last Assessment & [...] of growth. Supervision of high risk in [facility] 01/29/2023 Obesity affecting 01/29/2023 Overview: Pre [...] money to get more. Never true 01/15/2023 [place] Depression Scale Answer Date Recorded [place] Depression Scale Total 3 08/06/2023 The thought [...] u/s. Agreeable to scheduling primary C/s at [facility]. Will call to get this set up today. No other concerns. Baby is active. Denies contractions, bleeding, LOF. GBS done today. Musical Instrument Mechanic Documentation Provider requested biomedical engineering internship. Name of biomedical engineering internship: Santa. Has growth u/s next week with MFM. RAULITO Tariq documented in this encounter Nursing Notes * Sandra Horne LPN - 08/06/2023 8:11 AM EDT [id number] Denies vaginal bleeding/rom + movement Discuss baby position documented in this encounter Plan of Treatment Upcoming Encounters Date Type Department Care Team (Late st Contact Info) Description 08/07/2023 2:20 PM EDT Office Visit Pediatrics [facility] [place] [address] Sedrick Rg MD [facility] [place] [address] 08/12/2023 10:15 AM EDT [facility] [address] [facility] [place] [address] Zhanna Noble CRNP [address] [facility] [address] 08/15/2023 9:45 AM EDT Office Visit Diesel Scoop Operator Obstetrics Maternal Medicine, [place] [address] [place] [address] Bam Wilson DO [address] [place] [address] 08/15/2023 9:45 AM EDT Imaging Radiology [facility], [place] [address] [place] [address] 08/19/2023 11:30 AM EDT Office Visit Gynecology/Obstetrics [address] [place] [address] Zhanna Noble CRNP [facility] [place] [address] 10/15/2023 10:00 AM EDT Telemedicine Psychiatry, [place] [address] [place], [place] [id number] Bam Doe CRNP [address] [place] [address] Pending Results Name Type Priority [...]
--- OUTSIDE RECORDS SUMMARY | 2023-08-11 19:35 | External Medical Summary | Summary of Care ---
Author Name Unknown Organization [facility] Address [address] [place] [address] Phone [phone] Care Team Providers Care Tornado Chaser Name Role Phone Unavailable Primary Care Provider Unavailabl e Reason for Visit * Reason Onset Date Comments Appointment 07/22/2023 Encounter Details Date Type Department Care Team (Late st Contact Info) Description 07/22/2023 Telephone Gynecology/Obstetrics [facility] [address] [facility] [place] [address] Zhanna Noble CRNP [address] [facility] [place] [address] Appointment Allergies Active Allergy Reactions Criticality Noted [...] the morning. 30 Tablet 3 06/04/2023 Active [employer] Flex System w/Device KitIndications:Gestat ional diabetes mellitus (GDM), antepartum, gestational diabetes method of control unspecified Use to test blood sugars 4 times daily (fasting, 1 hour after breakfast, lunch, and dinner) 1 Kit 0 06/04/2023 Active [employer] In Vitro Strip (Glucose Blood)Indications:Ges tational diabetes mellitus (GDM), antepartum, gestational diabetes method of control unspecified Use to test blood sugars 4 times daily (fasting, 1 hour after breakfast, lunch, and dinner) 125 Strip 6 06/04/2023 Active [employer] Delica Lancets 30GIndications:Gestat ional diabetes mellitus (GDM), [...] of growth. Supervision of high risk in [facility] 01/29/2023 Obesity affecting 01/29/2023 Overview: Pre [...] money to get more. Never true 01/15/2023 [place] Depression Scale Answer Date Recorded [place] Depression Scale Total 4 01/29/2023 The thought [...] up an appointment to meet with a wincher prior to delivery. Is there a scheduling [...] not a family practice patient. Routing to SHAPE CARVER. * Telephone Encounter - Caroline Corona OSA - 07/22/2023 5:58 PM EDT Pts called in stating they are due August 31 and are requesting to get set up with a wincher and they are interested in being set up with Sedrick payton in [place] as their wincher. documented in this encounter Plan of Treatment Upcoming Encounters Date Type Department Care Team (Late st Contact Info) Description 08/05/2023 10:15 AM EDT Office Visit [facility]necology/Obst[facility]s [facility] [address] [facility] [place] [address] Zhanna Noble CRNP [address] [place] [address] 08/12/2023 10:15 AM EDT Office Visit Gynecology/Obstetrics [facility] [address] [facility] [place] [address] Zhanna Noble CRNP [address] [place] [address] 08/15/2023 9:45 AM EDT Office Visit Electromechanical Assembler Obstetrics Maternal Medicine, [place] [address] [place] [address] Bam Wilson DO [address] [place] [address] 08/15/2023 9:45 AM EDT Imaging Radiology [facility] [place] [address] [place] [address] 08/19/2023 11:30 AM EDT Office Visit Gynecology/Obstetrics [address] [place] [address] Zhanna Noble CRNP [address] [place] [address] 10/15/2023 10:00 AM EDT Telemedicine Psychiatry, [place] [address] [place] [address] Bam Doe CRNP [address] [place] [address] Health Maintenance Due Date Last [...]
--- OUTSIDE RECORDS SUMMARY | 2023-08-11 19:35 | External Medical Summary | Summary of Care ---
Author Name Unknown Organization [facility] Address [address] [place] [address] Phone [phone] Care Team Providers Care Pit Slagman Name Role Phone Unavailable Primary Care Provider Unavailabl e Reason for Visit * Reason Comments DSMT Follow-Up Encounter Details Date Type Department Care Team (Late st Contact Info) Description 07/19/2023 8:30 AM EDT Telemedicine Nutrition Services, [place] [address] [facility] Entrance B 2nd Floor [address] [place] [address] Desire Multani, RDN [address] [place] [address] Diet controlled gestational diabetes mellitus (GDM), antepartum*; Obesity affecting ; Dietary counseling and surveillance Allergies Active Allergy Reactions Criticality Noted Date Comments Tetanus Toxoid 03/22/2009 Leg swelling documented as of this encounter (statuses as of 07/19/2023) Medications Medication Sig Dispensed Refills Start Date [...] the morning. 30 Tablet 3 06/04/2023 Active Syncurity Flex System w/Device KitIndications:Gestat ional diabetes mellitus (GDM), antepartum, gestational diabetes method of control unspecified Use to test blood sugars 4 times daily (fasting, 1 hour after breakfast, lunch, and dinner) 1 Kit 0 06/04/2023 Active Syncurity In Vitro Strip (Glucose Blood)Indications:Ges tational diabetes mellitus (GDM), antepartum, gestational diabetes method of control unspecified Use to test blood sugars 4 times daily (fasting, 1 hour after breakfast, lunch, and dinner) 125 Strip 6 06/04/2023 Active [employer] Delica Lancets 30GIndications:Gestat ional diabetes mellitus (GDM), [...] as of this encounter (statuses as of 07/19/2023) Active Problems Problem Noted Date Diagnosed Date [...] 06/05/23: MFM ADAPT consult complete. Enrolled in [facility]. Instructions provided to report blood sugars [...] of growth. Supervision of high risk in [facility] 01/29/2023 Obesity affecting 01/29/2023 Overview: Pre [...] as of this encounter (statuses as of 07/19/2023) Resolved Problems Problem Noted Date Diagnosed Date Resolved Date Supervision of high risk pre gnancy in first trimester 02/11/2023 06/04/2023 with 11 completed weeks gestation 02/11/2023 04/10/2023 documented as of this encounter (statuses as of 07/19/2023) Social History Tobacco Use Types Packs/Day Years [...] money to get more. Never true 01/15/2023 [place] Depression Scale Answer Date Recorded [place] Depression Scale Total 4 01/29/2023 The thought [...] on file documented as of this encounter Patient Instructions * Patient Instructions* Desire Multani RDN - 07/19/2023 3:29 PM EDT Participant Selected Behavioral Objective: Nutrition: To improve blood glucose control I will trial an early snack if I am not consuming breakfast shortly after waking and monitor blood sugar response. documented in this encounter Progress Notes * Desire Multani RDN - 07/19/2023 8:32 AM EDT DIABETES SELF-MANAGEMENT TRAINING/INITIAL NOTE Name: Stella Kern Date: 07/19/2023 Patient location: HOME. I was not in a hospital or clinic location. After connecting through [employer], patient was verified with two unique identifiers. Patient (or authorized legal major account representative) was then informed that this was a Telemedicine visit and being conducted confidentially over secure lines. Methods to assure confidentiality were taken. Patient acknowledged consent and understanding of privacy and security of the Telemedicine visit. The patient agreed to participate. Last order of DIABETES MANAGEMENT EDUCATION (ADA) REFERRAL was found on 06/04/2023 from Telephone on06/04/2023 No order of CLINICAL NUTRITION AND DIABETES EDUCATION ANNUAL RENEWAL is found. No order of PEDIATRIC DIABETES MANAGEMENT EDUCATION (ADA) REFERRAL OP is found. ADA referral in place? Yes Participant scheduled for 1:1 training due to lack of classes scheduled within 2 months of appointment. What diabetes concerns and/or barriers to care would you like to discuss in your appointment: Here for initial Gestational Diabetes education at 33 week 5 days gestation. She visited with Maternal Medicine staff for overview of diabetes management during , including glucometer instruction. Now in for nutrition education. Participant is taking vitamins. Reports having heartburn (laying down), nausea (related to iron supplement). Participant is not enrolled in WIC. Participant plans to breastfeed. In your words, what is diabetes? Driven off the placenta that occurs during ; difficult balancing with cravings; keeping under carbohydrate count Do you know the risks of uncontrolled diabetes? Yes Do you believe that diabetes can be controlled? Yes Are you ready to make small changes to help with diabetes self-management: Yes What type of diabetes do you have? Gestational Diabetes Mellitus: Are you aware of the post- glucose screening recommendations? Yes Female of childbearing age with any type of diabetes or considering . Yes - What is your understanding of the importance of glycemic control prior to and during ? Important for the baby Diabetes diagnosis year: 2023 Do you have a family history of diabetes? No Have you had any previous diabetes education? Yes- class 06/18/23 Support systems: Spouse Barriers to care: None Special Needs: None Psychosocial Screening: Lately have you been feeling down, depressed or hopeless most of the day? No- Reports stress and frustrated when blood sugar is higher than expected How Do You Manage Stress? Prescribed medication Reading Sleeping/taking a nap Talking to family/friends Watching television/movies Food Insecurity: Within the past 12 months, I worried whether our food would run out before we got money to buy more. No Within the past 12 months, the food we bought just did not last and we did not have money to buy more. No Sleep Health: Addressed - How many hours are you sleeping during the night? 7-8 hours Do you have difficulty falling or staying asleep? Yes - related to bathroom or heartburn Do you snore? Yes Are you waking up during the night with symptoms of low glucose levels (shaky, sweaty, nightmares)?No Are you waking up during the night to urinate frequently? Yes Diabetes Medications: None Monitoring blood glucose, interpreting and using results Fasting glucose tolerance test on 06/03/23 was 109 (elevated) 1 hour glucose tolerance test on 06/03/23 was 226 (elevated) 2 hour glucose tolerance test on 06/03/23 was 201 (elevated) 3 hour glucose tolerance test on 06/03/23 was 150 (elevated) Self-Monitoring Blood Glucose Source of Information: Participant brought logbook Frequency of tests: 4 Fastin/85/90/93/88 Post-Breakfast: 138/105/115 Post-Lunch: 120/89/121/102 Post-Dinner: 145/126/90/116 Summary: Reports few spikes with different foods- last night- air fried wings in no carb sauce, cauliflower pizza (141) Feels like struggling with breakfast Hypoglycemia?: No Diet: Describes typical diet history/24-hour recall Breakfast: protein shake- premier protein, wolof yogurt, frozen berries; 2 eggs and 1-2 slices toast and meat based protein (blood sugar up to 135), Kodiac protein waffles- (Blood sugar up to 150-160) Snacks: apple with nuts, fruit with nuts, cheese, granola bars (14 grams CHO with protein), yogurt cups, keto granola, vegetables with ranch Lunch: sandwich (tuna sandwich, multigrain bread), ranch dressing with raw vegetables Snacks: apple with nuts, fruit with nuts, cheese, granola bars (14 grams CHO with protein), yogurt cups, keto granola, vegetables with ranch Dinner: cauliflower pizza, air fried wings with no carbohydrate parmesan sauce; brown rice and quinoa, salmon, stir hendrix vegetables in low carbohydrate sauce; ground beef, vinegar based vegetables, brown rice quinoa Snacks: ice cream (2/3 cup) or ice cream bar (lower carbohydrates- frozen Kind bars) Drinks: water Notices blood sugars higher if she waits a longer time to eat breakfast. Reports consuming low carbohydrate or multigrain in the morning can make her blood sugar higher Weight management review: Wt Readings from Last 6 Encounters: 07/15/23 91.6 kg (202 lb) 07/01/23 90.7 kg (200 lb) 06/17/23 90.3 kg (199 lb) 06/03/23 89.8 kg (198 lb) 05/28/23 90.3 kg (199 lb) 05/24/23 90.3 kg (199 lb) Prepregnancy weight: 201 lb Prepregnancy BMI: 33.4 Recommended weight gain by term : 11-20 lb Total weight gain in : 1 lb at 33 weeks 5 days gestation which is below goal. Goal is 0.5-1 lb gain per week until delivery. Physical Activity: Prior to - dance, gym During - Has a large fibroid making activity difficulty- walk, videos at home ADA STANDARDS OF CARE/BUNDLE MEASURES Diabetes Bundle / Standards of Care: Gestational Diabetes Participant Therapy Management Plan: Hypertension: BP Readings from Last 3 Encounters: 07/15/23 106/62 07/01/23 106/60 06/17/23 102/60 Gestational Diabetes Participant, being monitored by WILDLIFE MANAGEMENT PROFESSOR. Dyslipidemia: No results found for: "LDL" No results found for: "TRIG", "CHOL", "HDL" Gestational Diabetes Mellitus Participant Kidney function review: Lab Results Component Value Date/Time ESTIMATED GLOMERULAR FILTRATION RATE - [facility] >90 06/03/2023 08:03 AM No results found for: "ALBUMIN / CREATININE RATIO", "ALBUMIN / CREATININE RATIO, URINE - [facility]" No results found for: "PROTEIN/ CREATININE RATIO", "PROTEIN/ CREATININE RATIO, URINE - [facility]" Gestational Diabetes Mellitus Participant DSMT/Diabetes MNT Diagnosis: Food and nutrition related knowledge deficit related to gestational diabetes as evidenced by consult for education DSMT Initial Visit Assessment of Content Areas: Choose the answer that represents the participant's competency in each area. All need to be assessed at initial. Areas taught must match intervention. If content area not assessed and/or intervened today, it will be deferred to future session. Diabetes disease process and treatment process: Comprehends mercado points (3) Incorporating nutrition management into lifestyle: Needs review (2) Incorporating physical activity into lifestyle: Needs review (2) Using medications safely: Needs instruction (1) Monitoring blood glucose, interpreting and using results: Comprehends mercado points (3) Prevention, detection, and treatment of acute complications: Needs instruction (1) Prevention, detection, and treatment of chronic complications: Comprehends mercado points (3) Developing strategies to address psychosocial issues: Needs review (2) Developing strategies to promote health/change behavior: Needs review (2) DSMT/ Diabetes MNT intervention: Nutrition: Discussed options for breakfast and trial of including a small snack (with carbohydratesand protein) if she is not consuming breakfast shortly after waking up. Answered patient's questions. Physical Activity: Educated on the role of physical activity on glucose control. Educated on the benefits of exercise and blood glucose lowering effects. Explained briefly the role of exercise in decreasing insulin resistance. Psychosocial: Worked with participant to identify barriers to care. Assisted participant in identifying ideas for overcoming these barriers. Participant Selected Behavioral Objective: Nutrition: To improve blood glucose control I will trial an early snack if I am not consuming breakfast shortly after waking and monitor blood sugar response. Recommended Medication Changes: No changes. Education materials given to participant/caregiver and reviewed during today's visit: Website for [employer] for recipe ideas Diabetes Self-Management Support:: Websites: www.diabetes.org Possible Future Topics: Content areas that were not assessed in first visit: All content areas have been assessed. Time Spent With Patient: Time in: 832 Time out: 909 Billing: DSMT: 30 Minutes Plan for Return: Patient declined F/U visit; Patient encouraged to communicate any future nutritional questions or concerns via My [employer] Participant provided with contact information for Diabetes Care and Academic Guidance Specialist. All [employer] providers within the system are able to see [place] [employer] education and outcomes within the participant's electronic medical record. Desire Multani RDN, [facility] [place] Diabetes Care and Academic Guidance Specialist documented in this encounter Plan of Treatment Upcoming Encounters Date Type Department Care Team (Late st Contact Info) Description 08/05/2023 10:15 AM EDT Office Visit Gynecology/Obstetrics [place] [address] [place] [address] Zhanna Noble CRNP [address] [place] [address] 08/12/2023 10:15 AM EDT Office Visit Gynecology/Obstetrics [place] [address] [place] [address] Zhanna Noble CRNP [address] [place] [address] 08/15/2023 9:45 AM EDT Office Visit Police Judge Obstetrics Maternal Medicine, [place] [address] [place] [address] Bam Wilson DO [address] [place] [address] 08/15/2023 9:45 AM EDT [facility] [place] [address] [place] [address] 08/19/2023 11:30 AM EDT Office Visit Gynecology/Obstetrics [address] [place] [address] Zhanna Noble CRNP [address] [place] [address] 10/15/2023 10:00 AM EDT Telemedicine Psychiatry, [place] [address] [place] [address] Bam Doe CRNP [address] [place] [address] Health Maintenance Due Date Last [...] as of this encounter Visit Diagnoses Diagnosis Diet controlled gestational diabetes mellitus (GDM), antepartum- Primary Obesity affecting Dietary counseling and surveillance Dietary surveillance and counseling documented in this encounter
--- OUTSIDE RECORDS SUMMARY | 2023-08-11 19:35 | External Medical Summary | Summary of Care ---
Author Name Unknown Organization [facility] Address [address] [place] [address] Phone [phone] Care Team Providers Care Control And Recovery Combat Rescue Name Role Phone Unavailable Primary Care Provider Unavailabl e Reason for Visit * Reason Comments Return Visit Encounter Details Date Type Department Care Team (Late st Contact Info) Description 07/30/2023 3:30 PM EDT Nurse Only Gynecology/Obstetrics [facility] [address] [facility] [place] [address] Gw, Nurse Obgyn Injection [address] [place] [address] Return Visit Allergies Active Allergy Reactions Criticality [...] the morning. 30 Tablet 3 06/04/2023 Active [employer] Flex System w/Device KitIndications:Gestat ional diabetes mellitus (GDM), antepartum, gestational diabetes method of control unspecified Use to test blood sugars 4 times daily (fasting, 1 hour after breakfast, lunch, and dinner) 1 Kit 0 06/04/2023 Active [employer] [facility] In Vitro Strip (Glucose Blood)Indications:Ges tational diabetes mellitus (GDM), antepartum, gestational diabetes method of control unspecified Use to test blood sugars 4 times daily (fasting, 1 hour after breakfast, lunch, and dinner) 125 Strip 6 06/04/2023 Active [employer] Delica Lancets 30GIndications:Gestat ional diabetes mellitus (GDM), [...] MFM ADAPT consult complete. Enrolled in [facility]. Instructions provided to report blood [...] RPM reviewed; overall stable. Continue diet control. 07/29/[id number] Last Assessment & Plan: Working with ADAPT. [...] of growth. [facility] 01/29/2023 Obesity affecting 01/29/2023 Overview: Pre gravid [...] money to get more. Never true 01/15/2023 [place] Depression Scale Answer Date Recorded [place] Depression Scale Total 4 01/29/2023 The thought [...] Visit Gynecology/Obstetrics [place] [address] [place] [address] Zhanna Noble CRNP [address] [place] [address] 08/07/2023 2:20 PM EDT Office Visit Pediatrics [facility] [address] [facility] [place] [address] Sedrick Rg MD [address] [place] [address] 08/12/2023 10:15 AM EDT Office Visit Gynecology/Obstetrics [facility] [place] [address] Zh[facility] Noble CRNP [facility] [place] [address] 08/15/2023 9:45 AM EDT Office Visit Chef De Cuisine Obstetrics Maternal Medicine, [place] [address] [place] [address] Bam Wilson DO [address] [place] [address] 08/15/2023 9:45 AM EDT [facility] [place] [address] [place] [address] 08/19/2023 11:30 AM EDT Office Visit Gynecology/Obstetrics [address] [place] [address] Zh[facility] CRNP [facility] [address] 10/15/2023 10:00 AM EDT Telemedicine Psychiatry, [place] [address] [place] [address] Bam Doe CRNP [address] [place] [address] Health Maintenance Due Date Last [...]
--- OUTSIDE RECORDS SUMMARY | 2023-08-11 19:35 | External Medical Summary | Summary of Care ---
Author Name Unknown Organization [facility] Address [address] [place] [address] Phone [phone] Care Team Providers Care Tool Lathe Operator Name Role Phone Unavailable Primary Care Provider Unavailabl e Reason for Visit * Reason Comments Ultrasound Encounter Details Date Type Department Care Team (Late st Contact Info) Description 07/18/2023 8:00 AM EDT Office Visit Die Attacher Obstetrics Maternal Medicine, [place] [address] [place] [address] Naseem Ramirez MD [address] [place], [place] [id number] Anxiety during *; Diet controlled gestational diabetes mellitus (GDM), antepartum; Uterine fibroid in Allergies Active Allergy Reactions Criticality Noted Date Comments Tetanus Toxoid 03/22/2009 Leg swelling documented as of this encounter (statuses as of 07/18/2023) Medications Medication Sig Dispensed Refills Start Date [...] the morning. 30 Tablet 3 06/04/2023 Active [employer] Flex System w/Device KitIndications:Gestat ional diabetes mellitus (GDM), antepartum, gestational diabetes method of control unspecified Use to test blood sugars 4 times daily (fasting, 1 hour after breakfast, lunch, and dinner) 1 Kit 0 06/04/2023 Active [employer] In Vitro Strip (Glucose Blood)Indications:Ges tational diabetes mellitus (GDM), antepartum, gestational diabetes method of control unspecified Use to test blood sugars 4 times daily (fasting, 1 hour after breakfast, lunch, and dinner) 125 Strip 6 06/04/2023 Active [employer] Delica Lancets 30GIndications:Gestat ional diabetes mellitus (GDM), [...] as of this encounter (statuses as of 07/18/2023) Active Problems Problem Noted Date Diagnosed Date [...] 06/05/23: MFM ADAPT consult complete. Enrolled in [employer] [facility]. Instructions provided to report blood sugars each [...] of growth. Supervision of high risk in [facility] 01/29/2023 Obesity affecting 01/29/2023 Overview: Pre gravid [...] as of this encounter (statuses as of 07/18/2023) Resolved Problems Problem Noted Date Diagnosed Date Resolved Date Supervision of high risk pre gnancy in first trimester 02/11/2023 06/04/2023 with 11 completed weeks gestation 02/11/2023 04/10/2023 documented as of this encounter (statuses as of 07/18/2023) Social History Tobacco Use Types Packs/Day Years [...] money to get more. Never true 01/15/2023 [place] Depression Scale Answer Date Recorded [place] Depression Scale Total 4 01/29/2023 The thought [...] on file documented as of this encounter Progress Notes * Naseem Ramirez MD - 07/18/2023 8:28 AM EDT MATERNAL MEDICINE VISIT Stella Kern is at 33w4d who presents to [facility] for an ultrasound and follow-up of her high risk . The patient is currently 33 weeks and 4 days gestation with class 1 obesity, gestational diabetes controlled by diet alone and a fibroid uterus. She comes in for an evaluation of growth. She is being seen today by Maternal- Medicine for the following reasons: Problem List Items Addressed This Visit Uterine fibroid in I reviewed the ultrasound with her. The [...] 4 weeks for an evaluation of growth. Anxiety during - Primary Gestational diabetes mellitus (GDM), antepartum We reviewed today's ultrasound findings. (For full report, please refer to ultrasound report provided separately). Ms. Kern's questions were answered to her satisfaction. Ms. Kern was instructed to notify her primary digital associate if she felt regular contractions (approximately every 10 mins), leaking of fluid, vaginal bleeding or if movement decreased. Thank you for allowing us to participate in the care of this patient. Please call with any questions. I spent 15 minutes with Ms. Kern of which greater than 50% was spent in face to face consultation and coordination of care for the above. Naseem Ramirez MD 07/18/2023 8:28 AM documented in this encounter Miscellaneous Notes * Assessment & Plan Note - Naseem Ramirez MD - 07/18/2023 8:43 AM EDT Associated Problem(s): Uterine fibroid in I reviewed the ultrasound with her. The [...] 4 weeks for an evaluation of growth. documented in this encounter Plan of Treatment Upcoming Encounters Date Type Department Care Team (Late st Contact Info) Description 07/19/2023 8:30 AM EDT Telemedicine Nutrition Services, [place] [address] [facility] Entrance [address] 2nd Floor [address] [place] [address] Desire Multani, RDN [address] [facility] [place] [address] 08/05/2023 10:15 AM EDT Office Visit Gynecology/Obstetrics [place] [address] [place] [address] Zhanna Noble CRNP [address] [place] [address] 08/12/2023 10:15 AM EDT [facility] [address] [place] [address] Zhanna Noble CRNP [address] [facility] [place] [address] 08/15/2023 9:45 AM EDT Office Visit Die Attacher Obstetrics Maternal Medicine, [place] [address] [place] [address] Bam Wilson DO [address] [place] [address] 08/15/2023 9:45 AM EDT Imaging Radiology [facility], [place] [address] [place] [address] 08/19/2023 11:30 AM EDT Office Visit Gynecology/Obstetrics [address] [place] [address] Zhanna Noble CRNP [address] [facility] [address] 10/15/2023 10:00 AM EDT Telemedicine Psychiatry, [place] [address] [place] [address] Bam Doe CRNP [address] [place] [id number] Health Maintenance Due Date Last Done Comments [...] as of this encounter Visit Diagnoses Diagnosis Anxiety during - Primary Diet controlled gestational diabetes mellitus (GDM), antepartum Uterine fibroid in Tumors of body of uterus, unspecified as to episode of care in documented in this encounter
--- OUTSIDE RECORDS SUMMARY | 2023-08-11 19:35 | External Medical Summary ---
Author Name Unknown Address Unknown Organization K01:LABORATORY [facility] - [facility] [address] [facility] [address] Laboratory Report Ordering Provider Test Date Status LATANYA ARCHIBALD 08/06/2023 08:43:04 Final Observation Date Value Abnormality Reference (Units ) Status Streptococcus agalactiae DNA [Presence] in Specimen by FELIZ with probe detection 08/06/2023 08:43:04 Positive Abnormal Negative Final Group B Streptococcus detect ed by culture-enhanced PCR (amplified probe).
The collection of vaginal/rectal swab specimen combinations (FDA approved specimen type) is optimal for the detection of Group B Streptococcus. Single source collection (vaginal only or rectal only) or alternate specimen sources may lead to false negative results. Performing Location LABORATORY [facility] - [address] [place] [address]
--- OUTSIDE RECORDS SUMMARY | 2023-08-11 19:35 | External Medical Summary | Summary of Care ---
Author Name Unknown Organization [facility] Address [address] [place] [address] Phone [phone] Care Team Providers Care Inspector Hairspring Name Role Phone Unavailable Primary Care Provider Unavailabl e Encounter Details Date Type Department Care Team (Late st Contact Info) Description 07/30/2023 Telephone Gynecology/Obstetrics [facility] [address] [facility] [place] [address] Butch De Anda MD [address] [facility] [address] Allergies Active Allergy Reactions Criticality Noted Date [...] MFM ADAPT consult complete. Enrolled in Current [facility]. Instructions provided to report blood sugars [...] RPM reviewed; overall stable. Continue diet control. 07/29/[id number] Last Assessment & Plan: Working with ADAPT. [...] of growth. Supervision of high risk in [facility] 01/29/2023 Obesity affecting 01/29/2023 Overview: Pre gravid [...] money to get more. Never true 01/15/2023 Leland Depression Scale Answer Date Recorded Leland Depression Scale Total 4 01/29/2023 The thought [...] encounter Miscellaneous Notes * Telephone Encounter - Brianda Dempsey LPN - 07/30/2023 2:45 PM EDT Encounter created in error documented in this encounter Plan of Treatment Upcoming Encounters Date Type Department Care Team (Late st Contact Info) Description 07/30/2023 3:30 PM EDT Nurse Only Gynecology/Obstetrics [facility] [address] [place] [address] Gw, Nurse Obgyn Injection [address] [place] [address] 08/06/2023 8:15 AM EDT Office Visit Gynecology/Obstetrics [facility] [address] [place] [address] Zhanna Noble CRNP 132 [facility] [place] [address] 08/07/2023 2:20 PM EDT Office Visit Pediatrics [facility] [address] [place] [address] Sedrick Rg MD [address] [facility] [place] [address] 08/12/2023 10:15 AM EDT Office Visit Gynecology/Obstetrics [facility] [address] [facility] [place] [address] Zhanna Noble CRNP [address] [place] [address] 08/15/2023 9:45 AM EDT Office Visit Animal Rides Manager Obstetrics Maternal Medicine, [place] [address] [place] [address] Bam Wilson, [address] [place] [address] 08/15/2023 9:45 AM EDT Imaging Rad[facility] [place] [address] [place] [address] 08/19/2023 11:30 AM EDT Office Visit Gynecology/Obstetrics [address] [place] [address] Zhanna Noble CRNP [address] [place] [address] 10/15/2023 10:00 AM EDT Telemedicine Psychiatry, [place] [address] [place] [address] Bam Doe CRNP [address] [place] [facility] [place] [address] Health Maintenance Due Date Last Done [...]
--- OUTSIDE RECORDS SUMMARY | 2023-08-11 19:35 | External Medical Summary | Summary of Care ---
Author Name Unknown Organization [facility] Address [address] [place] [address] Phone [phone] Care Team Providers Care Shingles Roofer Name Role Phone Unavailable Primary Care Provider Unavailabl e Reason for Visit * Reason Onset Date Comments Appointment 07/22/2023 Encounter Details Date Type Department Care Team (Late st Contact Info) Description 07/22/2023 Telephone Gynecology/Obstetrics [facility] [address] [facility] [place] [address] Zhanna Noble CRNP [address] [facility] [place] [address] Appointment Allergies Active Allergy Reactions Criticality Noted Date Comments Tetanus Toxoid 03/22/2009 Leg swelling documented as of this encounter (statuses as of 07/24/2023) Medications Medication Sig Dispensed Refills Start Date [...] the morning. 30 Tablet 3 06/04/2023 Active Wonderflow Flex System w/Device KitIndications:Gestat ional diabetes mellitus (GDM), antepartum, gestational diabetes method of control unspecified Use to test blood sugars 4 times daily (fasting, 1 hour after breakfast, lunch, and dinner) 1 Kit 0 06/04/2023 Active LookTrackeruch Shopitize In Vitro Strip (Glucose Blood)Indications:Ges tational diabetes mellitus (GDM), antepartum, gestational diabetes method of control unspecified Use to test blood sugars 4 times daily (fasting, 1 hour after breakfast, lunch, and dinner) 125 Strip 6 06/04/2023 Active Wizpert Delica Lancets 30GIndications:Gestat ional diabetes mellitus (GDM), [...] as of this encounter (statuses as of 07/24/2023) Active Problems Problem Noted Date Diagnosed Date [...] of growth. Supervision of high risk in [facility] 01/29/2023 Obesity affecting 01/29/2023 Overview: Pre [...] as of this encounter (statuses as of 07/24/2023) Resolved Problems Problem Noted Date Diagnosed Date Resolved Date Supervision of high risk pre gnancy in first trimester 02/11/2023 06/04/2023 with 11 completed weeks gestation 02/11/2023 04/10/2023 documented as of this encounter (statuses as of 07/24/2023) Social History Tobacco Use Types Packs/Day Years [...] money to get more. Never true 01/15/2023 Vaiden Depression Scale Answer Date Recorded Vaiden Depression Scale Total 4 01/29/2023 The thought [...] encounter Miscellaneous Notes * Telephone Encounter - Santosh Acevedo OSA - 07/24/2023 9:21 AM EDT Spoke to Jayme. Pt is scheduled for 07/28 at 2:00 w/ Dr. Rajan. They will call back and ask for Santosh if this doesn't work for any reason. * Telephone Encounter - Kristine Rey LPN - 07/23/2023 11:09 AM EDT Please schedule and call dad * Telephone Encounter - Ketty Padilla RN - 07/23/2023 10:37 AM EDT Patient wants to establish care at [facility] for baby, would like to discuss setting up an appointment to meet with a presser all around prior to delivery. Is there a scheduling [...] not a family practice patient. Routing to SECURITY NURSE. * Telephone Encounter - Caroline Corona OSA - 07/22/2023 5:58 PM EDT Pts called in stating they are due August 31 and are requesting to get set up with a presser all around and they are interested in being set up with Sedrick payton in [place] as their presser all around. documented in this encounter Plan of Treatment Upcoming Encounters Date Type Department Care Team (Late st Contact Info) Description 07/29/2023 2:00 PM EDT Office Visit Pediatrics [facility] 132 [facility] [place] [address] Sedrick Rg MD [facility] [address] 08/06/2023 8:15 AM EDT Office Visit Gynecology/Obstetrics [facility] 132 [facility] [place] [address] Zhanna Noble CRNP 132 [facility] [address] 08/12/2023 10:15 AM EDT Office Visit Gynecology/Obstetrics [facility] 132 [facility] [place] [address] Zhanna Nobel CRNP 132 [facility] [address] 08/15/2023 9:45 AM EDT Office Visit Rn Camp Obstetrics Maternal Medicine, [place] [address] [place] [address] Bam Wilson, [address] [place] [address] 08/15/2023 9:45 AM EDT Imaging Radiology [facility] [place] [address] [place] [address] 08/19/2023 11:30 AM EDT Office Visit Gynecology/Obstetrics [address] [place] [address] Zhanna Noble CRNP [address] [place] [address] 10/15/2023 10:00 AM EDT Telemedicine Psychiatry, [place] [address] [place] [address] Bam Doe CRNP [address] [place] [address] Health Maintenance Due Date Last [...]
--- OUTSIDE RECORDS SUMMARY | 2023-08-11 19:35 | External Medical Summary | Summary of Care ---
Author Name Unknown Organization [facility] Address [address] [place] [address] Phone [phone] Care Team Providers Care Child Development Instructor Name Role Phone Unavailable Primary Care Provider Unavailabl e Reason for Visit * Reason Comments Other Meet and greet Encounter Details Date Type Department Care Team (Late st Contact Info) Description 08/07/2023 2:20 PM EDT Office Visit Pediatrics [facility] 132 [facility] [place] [address] Sedrick Rg MD 21 [facility] [place] [address] Visit for screening* Allergies Active Allergy Reactions Criticality Noted Date Comments Tetanus Toxoid 03/22/2009 Leg swelling documented as of this encounter (statuses as of 08/07/2023) Medications Medication Sig Dispensed Refills Start Date [...] the morning. 30 Tablet 3 06/04/2023 Active LivePerson Verio Flex System w/Device KitIndications:Gestat ional diabetes mellitus (GDM), antepartum, gestational diabetes method of control unspecified Use to test blood sugars 4 times daily (fasting, 1 hour after breakfast, lunch, and dinner) 1 Kit 0 06/04/2023 Active AppbistroToVirtual Instruments Corporation Verio In Vitro Strip (Glucose Blood)Indications:Ges tational diabetes mellitus (GDM), antepartum, gestational diabetes method of control unspecified Use to test blood sugars 4 times daily (fasting, 1 hour after breakfast, lunch, and dinner) 125 Strip 6 06/04/2023 Active AppbistroTouch Delica Lancets 30GIndications:Gestat ional diabetes mellitus (GDM), [...] as of this encounter (statuses as of 08/07/2023) Active Problems Problem Noted Date Diagnosed Date [...] MFM ADAPT consult complete. Enrolled in Current [facility]. Instructions provided to report blood sugars [...] RPM reviewed; overall stable. Continue diet control. 07/29/[id number] 08/05/23: RPM reviewed; Stable Last Assessment & [...] of growth. Supervision of high risk in [facility] 01/29/2023 Obesity affecting 01/29/2023 Overview: Pre [...] as of this encounter (statuses as of 08/07/2023) Resolved Problems Problem Noted Date Diagnosed Date Resolved Date Supervision of high risk pre gnancy in first trimester 02/11/2023 06/04/2023 with 11 completed weeks gestation 02/11/2023 04/10/2023 documented as of this encounter (statuses as of 08/07/2023) Social History Tobacco Use Types Packs/Day Years [...] money to get more. Never true 01/15/2023 Brohman Depression Scale Answer Date Recorded Brohman Depression Scale Total 3 08/06/2023 The thought [...] as of this encounter Progress Notes * Sedrick Rg MD - 08/07/2023 2:24 PM EDT Course: Special Concerns: Diet controlled gestational diabetes, breech presentation Treatment/Medication: see med list Family and Social History: Other Children: none Dental Hygiene Administrative Assistant Plans: parents from home. They will have paid leave in the 1st 3 months after delivery, but their work schedules are flexible. Besides grandparents live next door. Labor, Delivery and Hospital Stay Pre- classes encouraged - already took these. Encouraged participation of father and/or other supportive family members. Discussed plans for help on return home. Nutrition: Method of feeding: breast feeding Discussed/Encouraged breast feeding. Circumcision: Discuss parents' preference and other pros and cons - they want their baby circumcised. Sleeping Arrangements: Newborns should sleep face up. This position confers the lowest risk and is preferred. Child Rearing: Assessed parent's knowledge base of school childcare attendant and source of information. Social Relationships: Discussed the need to balance roles of parents with those learned as a couple. Discussed the availability of family members and friends to help with school childcare attendant. Pediatric Care: [facility] Pediatric Information sheet given. Discussed how to reach the doctor, on-call arrangements, emergencies, periodicity of visits, and Insurances accepted, and how nature photographer is notified at time of . documented in this encounter Plan of Treatment Upcoming Encounters Date Type Department Care Team (Latest Contact Info) Description 08/12/2023 10:15 AM EDT Office Visit Gynecology/Obstetri vanessa Melendez [address] [place] [address] Zhanna Noble CRNP 132 [place] [address] 08/15/2023 9:45 AM EDT Office Visit Brake Lining Driller Obstetrics Maternal Medicine[address] [place] [address] Bam Wilson DO [address] [place] [address] 08/15/2023 9:45 AM EDT Imaging [facility]iology [facility] [place] [address] [place] [address] 08/19/2023 11:30 AM EDT Office Visit Gynecology/Obstetri [address] [place] [id number] Zhanna Noble CRNP [address] [place] [address] 08/29/2023 1:00 PM EDT Hospital Encounter [facility], Women's Lower Level 1st Floor [address] [place] [address] Armani Mccurdy MD [address] [place] [address] 08/29/2023 1:00 PM EDT - 08/29/2023 3:26 PM EDT Surgery OBTR [facility], OB Triage, Women's Lower Level 1st Floor [address] [place] [address] Armani Mccurdy MD [address] [place] [address] DELIVERY AND CARE 10/15/2023 10:00 AM EDT Telemedicine Psychiatry, [place] [address] [place] [address] Bam Doe CRNP [address] [place] [address] Scheduled Procedures Name Priority Associated [...] as of this encounter Visit Diagnoses Diagnosis Visit for screening- Primary Unspecified screening 39 weeks gestation of state, incidental documented in this encounter
--- OUTSIDE RECORDS SUMMARY | 2023-08-11 19:36 | External Medical Summary | Summary of Care ---
Author Name Unknown Organization [facility] Address [address] [place] [address] Phone [phone] Care Team Providers Care Account Officer Name Role Phone Unavailable Primary Care Provider Unavailabl e Reason for Visit * Reason Comments Follow Up Gestational diabetes Encounter Details Date Type Department Care Team (Late st Contact Info) Description 06/12/2023 3:00 PM EST Telemedicine Wealth Management Consultant Obstetrics Maternal Medicine, [address] [address] Lora Carter CRNP [address] [place] [address] Supervision of high risk in third trimester*; 28 weeks gestation of ; Diet controlled gestational diabetes mellitus (GDM) in third trimester Allergies Active Allergy Reactions Criticality Noted Date Comments Tetanus Toxoid 03/22/2009 Leg swelling documented as of this encounter (statuses as of 06/12/2023) Medications Medication Sig Dispensed Refills Start Date End Date Status Vitamin 27-0.8 MG Oral Tablet Take by mouth. 0 Active Sertraline HCl 100 MG Oral Tablet (Zoloft)Indications:GA D (generalized anxiety disorder) Take 1 Tablet by mouth in the morning. In the morning.. 30 Tablet 3 04/16/2023 Active Ferrous Sulfate 325 (65 Fe) MG Oral Tablet (Feosol)Indications:An tepartum anemia complicating Take 1 Tablet by mouth in the morning and 1 Tablet before bedtime. 60 Tablet 3 06/04/2023 Active Vitamin C 250 MG Oral Tablet ChewableIndications:An tepartum anemia complicating Take 1 Tablet by mouth in the morning and 1 Tablet before bedtime. Take with iron. 60 Tablet 3 06/04/2023 Active Vitamin B-12 1000 MCG Oral Tablet (Cyanocobalamin)Indica tions:Antepartum anemia complicating Take 1 Tablet by mouth in the morning. 30 Tablet 3 06/04/2023 Active TagosGreen Business CommunityTouch Verio Flex System w/Device KitIndications:Gestati onal diabetes mellitus (GDM), antepartum, gestational diabetes method of control unspecified Use to test blood sugars 4 times daily (fasting, 1 hour after breakfast, lunch, and dinner) 1 Kit 0 06/04/2023 Active Appknoxuch Red Swoosh In Vitro Strip (Glucose Blood)Indications:Gest ational diabetes mellitus (GDM), antepartum, gestational diabetes method of control unspecified Use to test blood sugars 4 times daily (fasting, 1 hour after breakfast, lunch, and dinner) 125 Strip 6 06/04/2023 Active coin4ce Delica Lancets 30GIndications:Gestati onal diabetes mellitus (GDM), antepartum, gestational diabetes method of control unspecified Use to test blood sugars 4 times daily (fasting, 1 hour after breakfast, lunch, and dinner) 200 Each 6 06/04/2023 Active documented as of this encounter (statuses as of 06/12/2023) Active Problems Problem Noted Date Diagnosed Date [...] ADAPT - scheduled on 06/17/2023 @ 8AM Last Assessment & Plan: CONSIDERATIONS: Reviewed etiology and risks associated with gestational diabetes mellitus (GDM), including risks to , fetus, and maternal progression to Type 2 DM. Instructed on proper use of glucometer; supplies ordered, if indicated. Advised that life-long screening for diabetes is recommended every 1-3 years. RECOMMENDATIONS: Recommend monitoring blood sugars with daily fasting blood sugar (maintained at less than or equal to 95) and 1 hour postprandial measurements (maintained at less than or equal to 140). Medications should be adjusted to maintain these target values. Report levels to MFM (Maternal- Medicine) weekly. Recommend nutrition consult with RDN (Registered Dietitian Lace Finisher). Lifestyle changes are also indicated including optimizing gestational weight gain and physical activity of 30 minutes per day, if not otherwise contraindicated in . Insulin is preferred if medications are indicated to optimize euglycemia. Metformin (preferred over glyburide) may also be used in some circumstances. Reviewed the risks and benefits of each. Recommend ultrasound, surveillance and delivery as follows: A1GDM, delivery should be accomplished by 41w0d. A2GDM, recommend growth assessment with MFM every 4 weeks, initiate surveillance at 32 weeks and continue until delivery at 39 weeks. Recommend intrapartum monitoring every 1-2 hours (A2GDM) or every 4 hours (A1GDM) and treat with insulin if indicated. Recommend 2-hour glucose tolerance testing with 75-gram glucose load 6-8 weeks . Antepartum anemia complicating 024 Overview: Rx iron [...] Precautions reviewed. Supervision of high risk in [facility] 01/29/2023 Obesity affecting 01/29/2023 Overview: Pre [...] as of this encounter (statuses as of 06/12/2023) Resolved Problems Problem Noted Date Diagnosed Date Resolved Date Supervision of high risk pre gnancy in first trimester 02/11/2023 06/04/2023 with 11 completed weeks gestation 02/11/2023 04/10/2023 documented as of this encounter (statuses as of 06/12/2023) Social History Tobacco Use Types Packs/Day Years [...] money to get more. Never true 01/15/2023 Eckerman Depression Scale Answer Date Recorded Eckerman Depression Scale Total 4 01/29/2023 The thought [...] as of this encounter Progress Notes * Lora Carter, RAULITO [place] 06/12/2023 3:01 PM EST Images from the original note were not included. MATERNAL MEDICINE VISIT Patient location: HOME. I was in a hospital or clinic location. After connecting through televideo,patient was verified with two unique identifiers. Patient (or authorized legal loan representative) was then informed that this was a Telemedicine visit and being conducted confidentially over secure lines. Methods to assure confidentiality were taken. Patient acknowledged consent and understanding of pr ivacy and security of the Telemedicine visit. The patient agreed to participate. Stella Kern is a 32 year old year old with intrauterine at 28w3d who presents to [facility] for management of diabetes in . CC/HPI: Here for f/u visit. Current issues include: some elevated FBS Current management: diet controlled Diet: gestational diabetes diet Exercise: yoga Nutrition visit scheduled on 06/18/2023. Recent growth scan: [facility] US: 04/10/2023 at 19w3d PEEWEE: "normal" EFW: 290g (42% Hadlock) Glucose review: She reports her home blood glucose as following: After-breakfast elevation of 186 - ate Oxford pancakes. Reports fasting ~9 hours overnight. Has been having a bedtime snack, thinks her current combo of carbohydrate with protein snack is currently helping her FBS as they have improved over the past 2 days. Hypoglycemia episodes: N/A REVIEW OF SYSTEMS: headaches: none today nausea/vomiting: denies reports movement: yes (+ kick counts) abdominal pain/tenderness/cramping/contractions: no vaginal bleeding: no vaginal leaking of fluid: no all other systems negative PHYSICAL EXAM: LMP 11/25/2022 (Exact Date) Constitutional: well-developed, well nourished General: pleasant, alert and oriented Neuro: mood and affect normal, alert and oriented, no acute distress DISCUSSION: -We discussed continuing to test blood sugars 4 times a day (fasting, one hour after breakfast, lunch, and dinner). Encouraged continued compliance with CH RPM. -Briefly reviewed GDM diet recommendations including, avoiding processed sugars, sweetened drinks, white flour. Recommend Counting carbohydrates - Breakfast: 45 grams carbohydrate, Snack: 15-20 gramscarbohydrate, Lunch: 45 grams carbohydrate, Afternoon Snack: 15-20 grams carbohydrate, Dinner: 45 grams carbohydrate, bedtime snack 20-30 grams carbohydrate. Advised to have protein with every meal and snack, 70 grams total daily. Advised compliance with Lace Finisher consult. -We discussed eating a bedtime snack and fasting 8-10 hours overnight to help with sugar control inthe fasting timeframe. -Encouraged 20-30 minutes a day of exercise (walking, light upper body strength training, yoga, stationary cycling, or swimming). -We discussed the goal of euglycemia in order to create a stable environment for the fetus. She is aware that with diabetes are at increased risk for multiple complications to both mother and fetus. -Discussed starting medication for elevated FBS. Discussed insulin and Metformin options. Patient deferred starting medication at this time. She instead plans to have a consistent bedtime snack alongwith keeping her fasting window overnight between 8-10 hours, prior to initiating medication. Patient agreeable to scheduling a follow-up ADAPT visit early next week. Discussed if FBS remain elevated, would again recommend starting medication. Patient expressed understanding of same and is agreeable to plan as stated. -I encouraged the patient to reach out to [facility] in the event that she has any questions regarding diabetes management. RECOMMENDATIONS: Management: continue diet controlled with consistent bedtime snack Scheduled on 06/20/[address] Rose for growth scan . Follow up is scheduled with RAULITO Gallegos on 06/17/2023 @ 8:00AM via telemedicine for ADAPT(Advanced Diabetes And Team). Thank you for allowing us to participate in the care of this patient. Please call with any questions. RAULITO Alfonso 06/12/2023 3:33 PM documented in this encounter Plan of Treatment Upcoming Encounters Date Type Department Care Team (Late st Contact Info) Description 06/17/2023 11:30 AM EST Office Visit Gynecology/Obstetrics [address] [place] [address] Zhanna Noble CRNP [address] [place] [address] 06/18/2023 3:00 PM EST Telemedicine Virtual, Nutrition Services [address] [place] [address] Gale Turk, RDN [address] [place] [address] 06/20/2023 8:00 AM EST Office Visit Wealth Management Consultant Obstetrics Maternal Medicine, [place] [address] [place] [address] Micheline Rose DO [address] [place] [address] 06/20/2023 8:00 AM EST Imaging Radiology [facility] [place], [address] [address] 07/01/2023 11:30 AM EDT Office Visit Gynecology/Obstetrics [address] [place] [address] Zhanna Noble CRNP [address] [place] [facility] [address] 07/15/2023 11:30 AM EDT Office Visit Gynecology/Obstetrics [address] [place] [address] Zhanna Noble CRNP [address] [place] [address] 07/16/2023 8:30 AM EDT Telemedicine Psychiatry, [address] [address] Bam Doe CRNP [facility][note 3] [place] [id number] 07/18/2023 8:00 AM EDT Office Visit Wealth Management Consultant Obstetrics Maternal Medicine, [place] [address] [place] [address] Naseem Ramirez MD [address] [place] [address] 07/18/2023 8:00 AM EDT [facility] [address] [place] [address] Health Maintenance Due Date Last Done Comments Depression Screening 2000 Hepatitis B (1 of 3 - 19+ 3-dose series) 12/28/2007 COVID-19 Vaccine (2022-2 4 season) 2022 12/05/2020, 08/31/2020 Influenza Vaccine (FLU shot) (#1) 2022 Pap Smear 01/29/2026 01/29/2023 Cervical Cancer Screening [...] risk in third trimester- Primary Unspecified high-risk 28 weeks gestation of state, incidental Diet controlled gestational diabetes mellitus (GDM) in third trimester documented in this encounter
--- OUTSIDE RECORDS SUMMARY | 2023-08-11 19:36 | External Medical Summary | Summary of Care ---
Author Name Unknown Organization [facility] Address [address] [place] [address] Phone [phone] Care Team Providers Care Asphalt Tar And Gravel Roofer Name Role Phone Unavailable Primary Care Provider Unavailabl e Reason for Visit * Reason Comments Ultrasound Encounter Details Date Type Department Care Team (Late st Contact Info) Description 06/20/2023 8:00 AM EST Office Visit Bonded Structures Repairer Obstetrics Maternal Medicine, [place] [address] [place] [address] Micheline Rose, [address] [place] [address] Obesity affecting in third trimester, unspecified obesity type*; Uterine fibroid in ; Diet controlled gestational diabetes mellitus (GDM), antepartum; Ultrasound for screening for growth restriction; 29 weeks gestation of Allergies Active Allergy Reactions Criticality Noted Date Comments Tetanus Toxoid 03/22/2009 Leg swelling documented as of this encounter (statuses as of 06/20/2023) Medications Medication Sig Dispensed Refills Start Date [...] the morning. 30 Tablet 3 06/04/2023 Active [employer] Verio Flex System w/Device KitIndications:Gestati onal diabetes mellitus (GDM), antepartum, gestational diabetes method of control unspecified Use to test blood sugars 4 times daily (fasting, 1 hour after breakfast, lunch, and dinner) 1 Kit 0 06/04/2023 Active [employer] In Vitro Strip (Glucose Blood)Indications:Gest ational diabetes mellitus (GDM), antepartum, gestational diabetes method of control unspecified Use to test blood sugars 4 times daily (fasting, 1 hour after breakfast, lunch, and dinner) 125 Strip 6 06/04/2023 Active Building[employer] Delica Lancets 30GIndications:Gestati onal diabetes mellitus (GDM), antepartum, gestational diabetes method of control unspecified Use to test blood sugars 4 times daily (fasting, 1 hour after breakfast, lunch, and dinner) 200 Each 6 06/04/2023 Active documented as of this encounter (statuses as of 06/20/2023) Active Problems Problem Noted Date Diagnosed Date [...] 06/05/23: MFM ADAPT consult complete. Enrolled in [facility]. Instructions provided to report blood [...] review via Current Health in 1 week. Last Assessment & Plan: Working with ADAPT. [...] Precautions reviewed. Supervision of high risk in [facility] 01/29/2023 Obesity affecting 01/29/2023 Overview: Pre [...] as of this encounter (statuses as of 06/20/2023) Resolved Problems Problem Noted Date Diagnosed Date Resolved Date Supervision of high risk pre gnancy in first trimester 02/11/2023 06/04/2023 with 11 completed weeks gestation 02/11/2023 04/10/2023 documented as of this encounter (statuses as of 06/20/2023) Social History Tobacco Use Types Packs/Day Years [...] money to get more. Never true 01/15/2023 [place] Depression Scale Answer Date Recorded [place] Depression Scale Total 4 01/29/2023 The thought [...] as of this encounter Progress Notes * Micheline Rose, DO - 06/20/2023 8:55 AM EST Stella presented today at 29w4d for an ultrasound for the following indications: Obesity affecting in third trimester, unspecified obesity type Uterine fibroid in Diet controlled gestational diabetes mellitus (GDM), antepartum Assessment & Plan: Working with ADAPT. Ultrasound for screening for growth restriction 29 weeks gestation of Ultrasound summary: Patient presented at 29w 4d for growth assessment. Normal growth with EFW 1565 g at 66%ile. Normal PEEWEE at 16.6 cm. Transverse presentation. Stable large fibroids. I reviewed the ultrasound images. Stella was given the opportunity to meet with me if she had any questions. Please refer to the ultrasound report for additional details about today's ultrasound examination. RECOMMENDATIONS: Recommend follow up ultrasound with MFM in 4-6 weeks for growth secondary to above indications. See prior formal MFM consultation note. Thank you for allowing us to participate in the care of this patient. Please call with any questions. Micheline Rose DO 06/20/2023 8:55 AM documented in this encounter Miscellaneous Notes * Assessment & Plan Note - Micheline Rose DO - 06/20/2023 8:32 AM EST Associated Problem(s): Gestational diabetes mellitus (GDM), antepartum Working with ADAPT. documented in this encounter Plan of Treatment Upcoming Encounters Date Type Department Care Team (Late st Contact Info) Description 07/01/2023 11:30 AM EDT Office Visit Gynecology/Obstetrics [address] [place] [address] Zhanna Noble CRNP [address] [place] [address] 07/15/2023 11:30 AM EDT Office Visit Gynecology/Obstetrics [address] [place] [address] Zhanna Noble CRNP [address] [place] [address] 07/16/2023 8:30 AM EDT Telemedicine Psychiatry, [address] [address] Bam Doe CRNP [address] [place] [id number] 07/18/2023 8:00 AM EDT Office Visit Bonded Structures Repairer Obstetrics Maternal Medicine, [place] [address] [place] [address] Naseem Ramirez MD [address] [place] [address] 07/18/2023 8:00 AM EDT Imaging Rad[facility], [place] [address] [place] [address] Health Maintenance Due Date Last Done Comments [...] as of this encounter Visit Diagnoses Diagnosis Obesity affecting in third trimester, unspecified obesity type- Primary Uterine fibroid in Tumors of body of uterus, unspecified as to episode of care in Diet controlled gestational diabetes mellitus (GDM), antepartum Ultrasound for screening for growth restriction screening for growth retardation using ultrasonics 29 weeks gestation of state, incidental documented in this encounter
--- OUTSIDE RECORDS SUMMARY | 2023-08-11 19:36 | External Medical Summary | Summary of Care ---
Author Name Unknown Organization [facility] Address [address] [place] [address] Phone [phone] Care Team Providers Care Bleacher Kraft Pulp Name Role Phone Unavailable Primary Care Provider Unavailabl e Reason for Visit * Reason Onset Date Comments Home Monitoring Orders Only 06/06/2023 Encounter Details Date Type Department Care Team (Late st Contact Info) Description 06/06/2023 Home Monitoring Trolley Worker Obstetrics Maternal Medicine, [place] [address] [place] [address] Shannan Pruitt, RAULITO [address] [place], [place] [phone] Gestational diabetes mellitus (GDM), antepartum* Allergies Active Allergy Reactions Criticality Noted Date Comments Tetanus Toxoid 03/22/2009 Leg swelling documented as of this encounter (statuses as of 06/06/2023) Medications Medication Sig Dispensed Refills Start Date [...] the morning. 30 Tablet 3 06/04/2023 Active [employer] Games Verio Flex System w/Device KitIndications:Gestati onal diabetes mellitus (GDM), antepartum, gestational diabetes method of control unspecified Use to test blood sugars 4 times daily (fasting, 1 hour after breakfast, lunch, and dinner) 1 Kit 0 06/04/2023 Active [employer]Like In Vitro Strip (Glucose Blood)Indications:Gest ational diabetes mellitus (GDM), antepartum, gestational diabetes method of control unspecified Use to test blood sugars 4 times daily (fasting, 1 hour after breakfast, lunch, and dinner) 125 Strip 6 06/04/2023 Active [employer] Delica Lancets 30GIndications:Gestati onal diabetes mellitus (GDM), antepartum, gestational diabetes method of control unspecified Use to test blood sugars 4 times daily (fasting, 1 hour after breakfast, lunch, and dinner) 200 Each 6 06/04/2023 Active documented as of this encounter (statuses as of 06/06/2023) Active Problems Problem Noted Date Diagnosed Date [...] for no longer than 8-10 hours overnight. Last Assessment & Plan: CONSIDERATIONS: Reviewed etiology [...] Recommend nutrition consult with RDN (Registered Dietitian Diesel Engine Erector). Lifestyle changes are also indicated including optimizing [...] Precautions reviewed. Supervision of high risk in [facility] 01/29/2023 Obesity affecting 01/29/2023 Overview: [...] as of this encounter (statuses as of 06/06/2023) Resolved Problems Problem Noted Date Diagnosed Date Resolved Date Supervision of high risk pre gnancy in first trimester 02/11/2023 06/04/2023 with 11 completed weeks gestation 02/11/2023 04/10/2023 documented as of this encounter (statuses as of 06/06/2023) Social History Tobacco Use Types Packs/Day Years [...] money to get more. Never true 01/15/2023 [place] Depression Scale Answer Date Recorded [place] Depression Scale Total 4 01/29/2023 The thought [...] as of this encounter Progress Notes * Jing Mcdaniel, [facility] Brake Repairer [employer] - 06/06/2023 12:40 PM EST Patient has been successfully enrolled to the [id number] Diabetes Management in program. Standard alarm settings have been set as follows: Singular glucose level > 200 Singular glucose level < 60 Patient has been advised to take blood sugar four times a day (fasting upon waking, and one hour after each meal). Patient has been oriented to remote patient monitoring, assisted with initial device set-up, and provided with instruction and education regarding the program. Patient understands that this monitoring should not be used as a replacement for emergency and/or urgent care. If patient experiences any urgent symptoms, they are aware to call office/seasonal tax preparer provider for additional instructions. In emergency situations, they will report directly to the ED for further evaluation. If you would like to customize the alert parameters and/or instructions for this patient, please let me know and we can have them changed. documented in this encounter Plan of Treatment Upcoming Encounters Date Type Department Care Team (Late st Contact Info) Description 06/17/2023 11:30 AM EST Office Visit Gynecology/Obstetrics [address] [place] [address] Zhanna Noble CRNP [address] [place] [address] 06/20/2023 8:00 AM EST Office Visit Trolley Worker Obstetrics Maternal Medicine, [place] [address] [place] [address] Micheline Rose, [address] [place] [address] 06/20/2023 8:00 AM EST [facility] [place], [place] [address] [place] [address] 07/01/2023 11:30 AM EDT Office Visit Gynecology/Obstetrics [address] [place] [address] Zhanna Noble CRNP [address] [place] [address] 07/15/2023 11:30 AM EDT Office Visit Gynecology/Obstetrics [address] [place] [address] Zhanna Noble CRNP [address] [place] [address] 07/16/2023 8:30 AM EDT Telemedicine Psychiatry, [place] [address] [place] [address] Bam Doe CRNP [address] [place] [address] 07/18/2023 8:00 AM EDT Office Visit Trolley Worker Obstetrics Maternal Medicine, [place] [address] [place] [address] Naseem Ramirez MD [address] [place] [address] 07/18/2023 8:00 AM EDT Imaging Radiology [facility] [place], [place] [address] [place] [address] Health Maintenance Due Date Last Done Comments Depression Screening 2000 Hepatitis B (1 of 3 - 19+ 3-dose series) 12/28/2007 COVID-19 Vaccine ( - 2022-2 4 season) 2022 12/05/2020, 08/31/2020 Influenza Vaccine [...] as of this encounter Visit Diagnoses Diagnosis Gestational diabetes mellitus (GDM), antepartum- Primary documented in this encounter
--- OUTSIDE RECORDS SUMMARY | 2023-08-11 19:36 | External Medical Summary | Summary of Care ---
Author Name Unknown Organization [facility] Address [address] [place] [address] Phone [phone] Care Team Providers Care Air Tucker Name Role Phone Unavailable Primary Care Provider Unavailabl e Reason for Visit * Reason Onset Date Comments MyCode Consent 06/03/2023 Encounter Details Date Type Department Care Team (Late st Contact Info) Description 06/03/2023 Orders Only Outcomes Research Department [address], [place] [id number] Nicole Rincon CHRA MyCode Research Other*[id number]* Allergies Active Allergy Reactions Criticality Noted Date Comments Tetanus Toxoid 03/22/2009 Leg swelling documented as of this encounter (statuses as of 06/03/2023) Medications Medication Sig Dispensed Refills Start Date End Date Status Vitamin 27-0.8 MG Oral Tablet Take by mouth. 0 Active Sertraline HCl 100 MG Oral Tablet (Zoloft)Indications:G AD (generalized anxiety disorder) Take 1 Tablet by mouth in the morning. In the morning.. 30 Tablet 3 04/16/2023 Active documented as of this encounter (statuses as of 06/03/2023) Active Problems Problem Noted Date Diagnosed Date Supervision of high risk in first trim pauline 02/11/2023 Uterine fibroid in 01/29/2023 Overview: Uterine fibroids [...] of uterine fibroids in . Precautions reviewed. , normal first 01/29/2023 Obesity affecting 01/29/2023 Overview: Pre gravid [...] as of this encounter (statuses as of 06/03/2023) Resolved Problems Problem Noted Date Diagnosed Date Resolved Date with 11 completed weeks gestation 02/11/2023 04/10/2023 documented as of this encounter (statuses as of 06/03/2023) Social History Tobacco Use Types Packs/Day Years [...] money to get more. Never true 01/15/2023 [place] Depression Scale Answer Date Recorded [place] Depression Scale Total 4 01/29/2023 The thought [...] as of this encounter Progress Notes * Nicole Rincon CHRA - 06/03/2023 8:04 AM EST [employer] Consent Documentation Stella Concha provided consent/authorization to participate in the [employer] Project. documented in this encounter Plan of Treatment Upcoming Encounters Date Type Department Care Team (Late st Contact Info) Description 06/03/2023 9:45 AM EST Office Visit Gynecology/Obstetrics [address] [place] [address] Zhanna Noble CRNP [address] [place] [address] Arrived 06/20/2023 8:00 AM EST Office Visit Screener Perfumer Obstetrics Maternal Medicine, [place] [address] [place] [address] Rose Michelinegiovanni Del Rosario, [address] [place] [address] 06/20/2023 8:00 AM EST Imaging Radiology [facility], [place] [address] [place] [address] 07/16/2023 8:30 AM EDT Telemedicine Psychiatry, [place] [address] [place] [address] Bam Doe CRNP [address] [place] [phone] 07/18/2023 8:00 AM EDT Office Visit Screener Perfumer Obstetrics Maternal Medicine, [address] [address] Bam Wilson, [address] [place] [address] 07/18/2023 8:00 AM EDT Imaging Radiology [address] [id number] Pending Results Name Type Priority Associated Diagnoses Date /Time MYCODE INITIAL ADULT Lab Routine MyCode Research Other*[id number] 06/03/2023 8:08 AM EST Scheduled Orders Name Type Priority Associated Diagnoses Orde r Schedule MYCODE INITIAL ADULT Lab Routine MyCode Research Other*[id number] Expected: 06/03/2023 (Approximate), Expires: 06/22/2024 Health Maintenance Due Date Last Done Comments Depression Screening 2000 Hepatitis B (1 of - 19+ 3-dose series) 12/28/2007 COVID-19 Vaccine [...] as of this encounter Visit Diagnoses Diagnosis MyCode Research Other*[id number]- Primary documented in this encounter
--- OUTSIDE RECORDS SUMMARY | 2023-08-11 19:36 | External Medical Summary | Summary of Care ---
Author Name Unknown Organization [facility] Address [address] [place] [address] Phone [phone] Care Team Providers Care Automotive Sales Specialist Name Role Phone Unavailable Primary Care Provider Unavailabl e Encounter Details Date Type Department Care Team (Late st Contact Info) Description 06/10/2023 Orders Only Outcomes Research Department [address], [place] [id number] Shannan Chung CHRA MyCode Research Other*[id number] Allergies Active Allergy Reactions Criticality Noted Date Comments Tetanus Toxoid 03/22/2009 Leg swelling documented as of this encounter (statuses as of 06/10/2023) Medications Medication Sig Dispensed Refills Start Date [...] the morning. 30 Tablet 3 06/04/2023 Active [employer] Flex System w/Device KitIndications:Gestati onal diabetes mellitus (GDM), antepartum, gestational diabetes method of control unspecified Use to test blood sugars 4 times daily (fasting, 1 hour after breakfast, lunch, and dinner) 1 Kit 0 06/04/2023 Active [employer] In Vitro Strip (Glucose Blood)Indications:Gest ational diabetes mellitus (GDM), antepartum, gestational diabetes method of control unspecified Use to test blood sugars 4 times daily (fasting, 1 hour after breakfast, lunch, and dinner) 125 Strip 6 06/04/2023 Active [employer] Delica Lancets 30GIndications:Gestati onal diabetes mellitus (GDM), antepartum, gestational diabetes method of control unspecified Use to test blood sugars 4 times daily (fasting, 1 hour after breakfast, lunch, and dinner) 200 Each 6 06/04/2023 Active documented as of this encounter (statuses as of 06/10/2023) Active Problems Problem Noted Date Diagnosed Date [...] Recommend nutrition consult with RDN (Registered Dietitian Environmental Technician). Lifestyle changes are also indicated including optimizing [...] reviewed. Supervision of high risk in [facility] 01/29/2023 Obesity affecting 01/29/2023 Overview: Pre [...] as of this encounter (statuses as of 06/10/2023) Resolved Problems Problem Noted Date Diagnosed Date Resolved Date Supervision of high risk pre gnancy in first trimester 02/11/2023 06/04/2023 with 11 completed weeks gestation 02/11/2023 04/10/2023 documented as of this encounter (statuses as of 06/10/2023) Social History Tobacco Use Types Packs/Day Years [...] money to get more. Never true 01/15/2023 [place] Depression Scale Answer Date Recorded [place] Depression Scale Total 4 01/29/2023 The thought [...] on file documented as of this encounter Plan of Treatment Upcoming Encounters Date Type Department Care Team (Late st Contact Info) Description 06/17/2023 11:30 AM EST Office Visit Gynecology/Obstetrics [address] [place] [address] Zhanna Noble CRNP [address] [place] [address] 06/18/2023 3:00 PM EST Telemedicine Virtual, Nutrition Services [address] [place] [address] Gale Turk, LEONEL [address] [place] [address] [place] [address] 06/20/2023 8:00 AM EST Office Visit Director Of Recruitment And Admissions Obstetrics Maternal Medicine, [place] [address] [place] [address] Micheline Rose DO [address] [place] [address] 06/20/2023 8:00 AM EST Imaging Radiology [place] [address] [place] [address] 07/01/2023 11:30 AM EDT Office Visit Gynecology/Obstetrics [address] [place] [address] Zhanna Noble CRNP [address] [place] [address] 07/15/2023 11:30 AM EDT Office Visit Gynecology/Obstetrics [address] [place] [address] Zhanna Noble CRNP [address] [place] [address] 07/16/2023 8:30 AM EDT Telemedicine Psychiatry, [place] [address], [place] [address] Bam Doe CRNP [address] [place] [phone] 07/18/2023 8:00 AM EDT Office Visit Director Of Recruitment And Admissions Obstetrics Maternal Medicine, [place] [address] [place] [address] Naseem Ramirez MD [address] [place] [address] 07/18/2023 8:00 AM EDT Imaging Radiology [place] [address] [place] [address] Scheduled Orders Name Type Priority Associated Diagnoses Orde r Schedule MYCODE SUBSEQUENT ADULT Lab Routine MyCode Research Other*[id number] Every 6 Months for 2 Occurrences starting 06/10/2023 until 06/29/2024 Health Maintenance Due Date Last Done Comments [...] this encounter Visit Diagnoses Diagnosis MyCode Research Other*[id number] documented in this encounter
--- OUTSIDE RECORDS SUMMARY | 2023-08-11 19:36 | External Medical Summary | Summary of Care ---
Author Name Unknown Organization [facility] Address [address] [place] [address] Phone [phone] Care Team Providers Care Cutter Hot Knife Name Role Phone Unavailable Primary Care Provider Unavailabl e Reason for Visit * Reason Comments Outpatient Testing Encounter Details Date Type Department Care Team (Late st Contact Info) Description 06/03/2023 8:10 AM EST Laboratory Laboratory [address] [place] [phone] [address] [place] [address] Encounter for supervision of normal first in second trimester; [employer] Research Other*[id number] Allergies Active Allergy Reactions Criticality Noted Date [...] Results Component Value Date/Time [facility] 01/29/2023 10:28 AM Last Assessment & [...] money to get more. Never true 01/15/2023 [place] Depression Scale Answer Date Recorded [place] Depression Scale Total 4 01/29/2023 The thought [...] 06/17/2023 11:30 AM EST Office Visit Gynecology/Obstetrics [address] [place] [address] Zhanna Noble CRNP [address] [place] [address] 06/20/2023 8:00 AM EST Office Visit Boxing Machine Operator Obstetrics Maternal Medicine, [address] [address] Micheline Rose, [address] [place] [address] 06/20/2023 8:00 AM EST Imaging Radiology [place] [address] [place] [address] 07/01/2023 11:30 AM EDT Office Visit Gynecology/Obstetrics [address] [place] [address] Zhanna Noble CRNP [address] [place] [address] 07/15/2023 11:30 AM EDT Office Visit Gynecology/Obstetrics [address] [place] [address] Zhanna Noble CRNP [address] [place] [address] 07/16/2023 8:30 AM EDT Telemedicine Psychiatry, [address] [address] Bam Doe CRNP [address] [place] [phone] 07/18/2023 8:00 AM EDT Office Visit Boxing Machine Operator Obstetrics Maternal Medicine, [address] [address] Bam Wilson, [address] [place] [address] 07/18/2023 8:00 AM EDT Imaging Radiology [address] [address] Pending Results Name Type Priority Associated Diagnoses Date /Time GESTATIONAL GLUCOSE TOLERANCE, 3 HOUR Lab Routine Encounter for supervision of normal first in second trimester 06/03/2023 8:03 AM EST SYPHILIS ANTIBODY SCREEN WITH REFLEX TO RPR Lab Routine Encounter for supervision of normal first in second trimester 06/03/2023 8:03 AM EST CBC WITH WBC DIFFERENTIAL AND ANEMIA REFLEX WORKUP Lab Routine Encounter for supervision of normal first in second trimester 06/03/2023 8:03 AM EST 100-G GESTATIONAL GLUCOSE, FASTING Lab Routine Encounter for supervision of normal first in second trimester 06/03/2023 8:03 AM EST SYPHILIS ANTIBODY SCREEN Lab Routine Encounter for supervision of normal first in second trimester 06/03/2023 8:03 AM EST ANEMIA CBC Lab Routine Encounter for supervision of normal first in second trimester 06/03/2023 8:03 AM EST DIFFERENTIAL, AUTOMATED Lab Routine Encounter for supervision of normal first in second trimester 06/03/2023 8:03 AM EST ANEMIA REFLEX CHEMISTRY HOLD Lab Routine Encounter for supervision of normal first in second trimester 06/03/2023 8:03 AM EST 100-G GESTATIONAL GLUCOSE, 1 HOUR Lab Routine Encounter for supervision of normal first in second trimester 06/03/2023 9:08 AM EST MYCODE INITIAL ADULT Lab Routine MyCode Research Other*[id number] 06/03/2023 8:08 AM EST MYCODE INITIAL ADULT-PINK Lab Routine MyCode Research Other*[id number] 06/03/2023 8:08 AM EST MYCODE SST1 Lab Routine MyCode Research Other*[id number] 06/03/2023 8:08 AM EST MYCODE SST2 Lab Routine MyCode Research Other*[id number] 06/03/2023 8:08 AM EST 100-G GESTATIONAL GLUCOSE, 2 HOUR Lab Routine Encounter for supervision of normal first in second trimester 06/03/2023 10:08 AM EST 100-G GESTATIONAL GLUCOSE, 3 HOUR Lab Routine Encounter for supervision of normal first in second trimester 06/03/2023 11:06 AM EST Health Maintenance Due Date Last Done Comments Depression Screening 2000 Hepatitis B (1 of + 3-dose series) 12/28/2007 COVID-19 Vaccine (2022-2 4 [...] as of this encounter Visit Diagnoses Diagnosis Encounter for supervision of normal first in second trimester Supervision of normal first MyCode Research Other*[id number] documented in this encounter
--- OUTSIDE RECORDS SUMMARY | 2023-08-11 19:36 | External Medical Summary | Summary of Care ---
Author Name Unknown Organization [facility] Address [address] [place] [address] Phone [phone] Care Team Providers Care Painter And Grader Cork Name Role Phone Unavailable Primary Care Provider Unavailabl e Reason for Visit * Reason Comments Return Visit Encounter Details Date Type Department Care Team (Late st Contact Info) Description 06/03/2023 9:45 AM EST Office Visit Gynecology/Obstetric s [address] [place] [address] Zhanna Noble CRNP [address] [place] [address] Uterine fibroid in *; Encounter for supervision of normal first in third trimester; Obesity affecting , antepartum, unspecified obesity type; Anxiety during Allergies Active Allergy Reactions Criticality Noted Date [...] Results Component Value Date/Time PLATELET AUTO - VANITA 308 01/29/2023 10:28 AM Last Assessment & [...] money to get more. Never true 01/15/2023 [place] Depression Scale Answer Date Recorded [place] Depression Scale Total 4 01/29/2023 The thought [...] Sign Reading Time Taken Comments Blood Pressure 112/62 06/03/2023 9:32 AM EST Pulse - - Temperature - - Respiratory Rate - - Oxygen Saturation - - Inhaled Oxygen Concentration - - Weight 89.8 kg (198 lb) 06/03/2023 9:32 AM EST Height 165.1 cm (5' 5") 06/03/2023 9:32 AM EST Body Mass Index 32.95 06/03/2023 9:32 AM EST documented in this encounter Progress Notes * Zhanna Noble CRNP - 06/03/2023 10:01 AM EST 27w1d Had appt last week with Dr. De Anda to discuss delivery. Planning now for delivery at [facility] d/t size offibroid. Had pink spotting with wiping once last week, none since. Not related to intercourse. Discussed [facility]. Baby is active. No contractions, bleeding, or LOF. Completing 3hr GTT today. RAULITO Tariq * Teressa Mcdonald LPN - 06/03/2023 9:32 AM EST 27w0d Doing 3gtt documented in this encounter Plan of Treatment Upcoming Encounters Date Type Department Care Team (Late st Contact Info) Description 06/17/2023 11:30 AM EST Office Visit Gynecology/Obstetrics [address] [place] [address] [facility] CRNP [address] [facility] [address] 06/20/2023 8:00 AM EST Office Visit Litigation Services Manager Obstetrics Maternal Medicine, [place] [address] [place] [address] Micheline Rose, [address] [place] [address] 06/20/2023 8:00 AM EST [facility] [place] [address] [place] [address] 07/01/2023 11:30 AM EDT Office Visit Gynecology/Obstetrics [address] [place] [address] Zhanna Noble CRNP [address] [place] [address] 07/15/2023 11:30 AM EDT Office Visit Gynecology/Obstetrics [address] [place] [address] Zhanna Noble CRNP [address] [place] [address] 07/16/2023 8:30 AM EDT Telemedicine Psychiatry, [place] [address] [place], [place] [id number] Bam Doe CRNP [address] [place] [address] 07/18/2023 8:00 AM EDT Office Visit Litigation Services Manager Obstetrics Maternal Medicine, [place] [address] [place], [place] [id number] Bam Wilson DO [address] [place] [address] 07/18/2023 8:00 AM EDT [facility] [place] [address] [place], [place] [id number] Health Maintenance Due Date Last Done Comments [...] unspecified as to episode of care in Encounter for supervision of normal first in third trimester Supervision of normal first Obesity affecting , antepartum, unspecified obesity type Anxiety during documented in this encounter
--- OUTSIDE RECORDS SUMMARY | 2023-08-11 19:36 | External Medical Summary | Summary of Care ---
Author Name Unknown Organization [facility] Address [address] [place] [address] Phone [phone] Care Team Providers Care Woodworking Belt Sander Name Role Phone Unavailable Primary Care Provider Unavailabl e Reason for Visit * Reason Comments Return Visit Encounter Details Date Type Department Care Team (Late st Contact Info) Description 06/17/2023 11:30 AM EST Office Visit Gynecology/Obstetric s [address] [place] [address] Zhanna Noble CRNP [address] [place] [address] Uterine fibroid in *; Supervision of high risk in third trimester; Obesity affecting , antepartum, unspecified obesity type; Anxiety during ; Diet controlled gestational diabetes mellitus (GDM), antepartum; Antepartum anemia complicating Allergies Active Allergy Reactions Criticality Noted Date Comments Tetanus Toxoid 03/22/2009 Leg swelling documented as of this encounter (statuses as of 06/17/2023) Medications Medication Sig Dispensed Refills Start Date [...] the morning. 30 Tablet 3 06/04/2023 Active [employer] Verio Flex System w/Device KitIndications:Gestati onal diabetes mellitus (GDM), antepartum, gestational diabetes method of control unspecified Use to test blood sugars 4 times daily (fasting, 1 hour after breakfast, lunch, and dinner) 1 Kit 0 06/04/2023 Active [employer] In Vitro Strip (Glucose Blood)Indications:Gest ational diabetes mellitus (GDM), antepartum, gestational diabetes method of control unspecified Use to test blood sugars 4 times daily (fasting, 1 hour after breakfast, lunch, and dinner) 125 Strip 6 06/04/2023 Active [employer] Delica Lancets 30GIndications:Gestati onal diabetes mellitus (GDM), antepartum, gestational diabetes method of control unspecified Use to test blood sugars 4 times daily (fasting, 1 hour after breakfast, lunch, and dinner) 200 Each 6 06/04/2023 Active documented as of this encounter (statuses as of 06/17/2023) Active Problems Problem Noted Date Diagnosed Date [...] 06/05/23: MFM ADAPT consult complete. Enrolled in [facility]. Instructions provided to report blood sugars [...] F/U ADAPT if needed; will review via [facility] in 1 week. Last Assessment & Plan: CONSIDERATIONS: Reviewed etiology [...] Recommend nutrition consult with RDN (Registered Dietitian Design Editor). Lifestyle changes are also indicated including optimizing [...] Precautions reviewed. Supervision of high risk in [facility] 01/29/2023 Obesity affecting 01/29/2023 Overview: Pre [...] as of this encounter (statuses as of 06/17/2023) Resolved Problems Problem Noted Date Diagnosed Date Resolved Date Supervision of high risk pre gnancy in first trimester 02/11/2023 06/04/2023 with 11 completed weeks gestation 02/11/2023 04/10/2023 documented as of this encounter (statuses as of 06/17/2023) Social History Tobacco Use Types Packs/Day Years [...] money to get more. Never true 01/15/2023 [place] Depression Scale Answer Date Recorded [place] Depression Scale Total 4 01/29/2023 The thought [...] Sign Reading Time Taken Comments Blood Pressure 102/60 06/17/2023 11:11 AM EST Pulse - - Temperature - - Respiratory Rate - - Oxygen Saturation - - Inhaled Oxygen Concentration - - Weight 90.3 kg (199 lb) 06/17/2023 11:11 AM EST Height 165.1 cm (5' 5") 06/17/2023 11:11 AM EST Body Mass Index 33.12 06/17/2023 11:11 AM EST documented in this encounter Progress Notes * Zhanna Noble CRNP - 06/17/2023 11:32 AM EST 29w1d Dx with GDM, following with ADAPT. Has appt tomorrow with nutrition tomorrow. Blood sugar readings are good. Baby is active. No contractions, bleeding, LOF. Taking iron. RAULITO Tariq * Teressa Mcdonald LPN - 06/17/2023 11:11 AM EST 29w1d Denies any concerns documented in this encounter Plan of Treatment Upcoming Encounters Date Type Department Care Team (Late st Contact Info) Description 06/18/2023 3:00 PM EST Telemedicine Virtual, Nutrition Services [address] [facility] [place] [address] Gale Turk RDN [address] [place] [address] [place] [address] 06/20/2023 8:00 AM EST Office Visit Manager Of Financial Obstetrics Maternal Medicine, [address] [place] [address] Micheline Rose Doni JovanaDO [address] [place] [address] 06/20/2023 8:00 AM EST Imaging Radiology [facility] [address] [place] [address] 07/01/2023 11:30 AM EDT Office Visit Gynecology/Obstetrics [address] [place] [address] Zhanna Noble CRNP [address] [place] [address] 07/15/2023 11:30 AM EDT Office Visit Gynecology/Obstetrics [address] [place] [address] Zhanna Noble CRNP [address] [place] [address] 07/16/2023 8:30 AM EDT Telemedicine Psychiatry, [place] [address] [place] [address] Bam Doe CRNP [address] [place] [phone] 07/18/2023 8:00 AM EDT Office Visit Manager Of Financial Obstetrics Maternal Medicine, [place] [address] [place] [address] Naseem Ramirez MD [address] [place] [address] 07/18/2023 8:00 AM EDT Imaging Radiology [facility] [address] [place] [address] Health Maintenance Due Date Last Done Comments [...] in third trimester Unspecified high-risk Obesity affecting , antepartum, unspecified obesity type Anxiety during Diet controlled gestational diabetes mellitus (GDM), antepartum Antepartum anemia complicating Anemia, antepartum documented in this encounter
--- OUTSIDE RECORDS SUMMARY | 2023-08-11 19:36 | External Medical Summary | Summary of Care ---
Author Name Unknown Organization [facility] Address [address] [place] [address] Phone [phone] Care Team Providers Care Psychological Operations Name Role Phone Unavailable Primary Care Provider Unavailabl e Reason for Visit * Reason Comments Return Visit Encounter Details Date Type Department Care Team (Late st Contact Info) Description 07/01/2023 11:30 AM EDT Office Visit Gynecology/Obstetric s [address] [place] [address] Zhanna Noble CRNP [address] [place] [address] Uterine fibroid in *; Supervision of high risk in third trimester; Obesity affecting , antepartum, unspecified obesity type; Anxiety during ; Diet controlled gestational diabetes mellitus (GDM), antepartum; Antepartum anemia complicating Allergies Active Allergy Reactions Criticality Noted Date Comments Tetanus Toxoid 03/22/2009 Leg swelling documented as of this encounter (statuses as of 07/01/2023) Medications Medication Sig Dispensed Refills Start Date [...] the morning. 30 Tablet 3 06/04/2023 Active [employer] Verio Flex System w/Device KitIndications:Gestati onal diabetes mellitus (GDM), antepartum, gestational diabetes method of control unspecified Use to test blood sugars 4 times daily (fasting, 1 hour after breakfast, lunch, and dinner) 1 Kit 0 06/04/2023 Active [employer] In Vitro Strip (Glucose Blood)Indications:Gest ational diabetes mellitus (GDM), antepartum, gestational diabetes method of control unspecified Use to test blood sugars 4 times daily (fasting, 1 hour after breakfast, lunch, and dinner) 125 Strip 6 06/04/2023 Active [employer] Delica Lancets 30GIndications:Gestati onal diabetes mellitus (GDM), antepartum, gestational diabetes method of control unspecified Use to test blood sugars 4 times daily (fasting, 1 hour after breakfast, lunch, and dinner) 200 Each 6 06/04/2023 Active documented as of this encounter (statuses as of 07/01/2023) Active Problems Problem Noted Date Diagnosed Date [...] 06/05/23: MFM ADAPT consult complete. Enrolled in [employer] [facility]. Instructions provided to report blood sugars [...] 06/24/23: RPM reviewed; stable; continue diet controlled Last Assessment & Plan: Working with ADAPT. [...] Precautions reviewed. Supervision of high risk in [facility] 01/29/2023 Obesity affecting 01/29/2023 Overview: Pre [...] as of this encounter (statuses as of 07/01/2023) Resolved Problems Problem Noted Date Diagnosed Date Resolved Date Supervision of high risk pre gnancy in first trimester 02/11/2023 06/04/2023 with 11 completed weeks gestation 02/11/2023 04/10/2023 documented as of this encounter (statuses as of 07/01/2023) Social History Tobacco Use Types Packs/Day Years [...] money to get more. Never true 01/15/2023 [place] Depression Scale Answer Date Recorded [place] Depression Scale Total 4 01/29/2023 The thought [...] Sign Reading Time Taken Comments Blood Pressure 106/60 07/01/2023 11:22 AM EDT Pulse - - Temperature - - Respiratory Rate - - Oxygen Saturation - - Inhaled Oxygen Concentration - - Weight 90.7 kg (200 lb) 07/01/2023 11:22 AM EDT Height 165.1 cm (5' 5") 07/01/2023 11:22 AM EDT Body Mass Index 33.28 07/01/2023 11:22 AM EDT documented in this encounter Progress Notes * Zhanna Noble CRNP - 07/01/2023 11:37 AM EDT 31w1d No concerns. Following with MFM for fibroids and GDM. Most recent MFM visit showed large fibroid isshrinking, baby is 66th percentile. Baby is active. No contractions, bleeding, LOF. CBC today, is taking iron. RAULITO Tariq * Teressa Mcdonald LPN - 07/01/2023 11:22 AM EDT 31w1d Denies any concerns documented in this encounter Plan of Treatment Upcoming Encounters Date Type Department Care Team (Late st Contact Info) Description 07/15/2023 11:30 AM EDT Office Visit Gynecology/Obstetrics [address] [place] [address] Zhanna Noble CRNP [address] [place] [address] 07/16/2023 8:30 AM EDT Telemedicine Psychiatry, [place] [address] [place] [address] Bam Doe CRNP [address] [place] [phone] 07/18/2023 8:00 AM EDT Office Visit Development And Housing Director Obstetrics Maternal Medicine, [place] [address] [place] [address] Naseem Ramirez MD [address] [place] [address] 07/18/2023 8:00 AM EDT Imaging Radiology [facility] [address] [place] [address] 08/19/2023 11:30 AM EDT Office Visit Gynecology/Obstetrics [address] [place] [address] Zhanna Noble CRNP [address] [place] [address] Pending Results Name Type Priority Associated Diagnoses Date /Time CBC WITH WBC DIFFERENTIAL Lab Routine Antepartum anemia complicating 07/01/2023 11:40 AM EDT Scheduled Orders Name Type Priority Associated Diagnoses Orde r Schedule CBC WITH WBC DIFFERENTIAL Lab Routine Antepartum anemia complicating Expected: 07/01/2023 (Approximate), Expires: 06/30/2024 Health Maintenance Due Date Last Done Comments [...]
--- OUTSIDE RECORDS SUMMARY | 2023-08-11 19:36 | External Medical Summary | Summary of Care ---
Author Name Unknown Organization [facility] Address [address] [place] [address] Phone [phone] Care Team Providers Care General Repairer Name Role Phone Unavailable Primary Care Provider Unavailabl e Reason for Visit * Reason Comments Outpatient Testing Encounter Details Date Type Department Care Team (Late st Contact Info) Description 07/01/2023 11:50 AM EDT Laboratory Laboratory [address] [place] [phone] [address] [place] [address] Antepartum anemia complicating Allergies Active Allergy Reactions [...] the morning. 30 Tablet 3 06/04/2023 Active [employer] Verio Flex System w/Device KitIndications:Gestati onal diabetes mellitus (GDM), antepartum, gestational diabetes method of control unspecified Use to test blood sugars 4 times daily (fasting, 1 hour after breakfast, lunch, and dinner) 1 Kit 0 06/04/2023 Active [employer] In Vitro Strip (Glucose Blood)Indications:Gest ational diabetes mellitus (GDM), antepartum, gestational diabetes method of control unspecified Use to test blood sugars 4 times daily (fasting, 1 hour after breakfast, lunch, and dinner) 125 Strip 6 06/04/2023 Active [employer] Delica Lancets 30GIndications:Gestati onal diabetes mellitus (GDM), [...] 06/05/23: MFM ADAPT consult complete. Enrolled in [employer] [facility]. Instructions provided to report blood [...] Precautions reviewed. Supervision of high risk in [facility] [...] money to get more. Never true 01/15/2023 [place] Depression Scale Answer Date Recorded [place] Depression Scale Total 4 01/29/2023 The thought [...] 07/15/2023 11:30 AM EDT Office Visit Gynecology/Obstetrics [address] [place] [address] Zhanna Noble CRNP [address] [place] [address] 07/16/2023 8:30 AM EDT Telemedicine Psychiatry, [address] [address] Bam Doe CRNP [address] [place] [address] 07/18/2023 8:00 AM EDT Office Visit Door Serviceman Obstetrics Maternal Medicine, [place] [address] [place] [address] Naseem Ramirez MD [address] [place] [address] 07/18/2023 8:00 AM EDT Imaging Radiology [facility] [place] [address] [facility] [place] [address] 08/19/2023 11:30 AM EDT Office Visit Gynecology/Obstetrics [address] [place] [address] Zhanna Noble CRNP [address] [place] [address] Pending Results Name Type Priority Associated Diagnoses Date /Time CBC WITH WBC DIFFERENTIAL Lab Routine Antepartum anemia complicating 07/01/2023 11:40 AM EDT CBC Lab Routine Antepartum anemia complicating 07/01/2023 11:40 AM EDT DIFFERENTIAL, AUTOMATED Lab Routine Antepartum anemia complicating 07/01/2023 11:40 AM EDT Health Maintenance Due Date Last [...] as of this encounter Visit Diagnoses Diagnosis Antepartum anemia complicating Anemia, antepartum documented in this encounter
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
--- OUTSIDE RECORDS SUMMARY | 2023-08-11 19:36 | External Medical Summary | Summary of Care ---
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 30 Tablet 3 06/04/2023 Active RocketBuxTouch Verio Flex System w/Device KitIndications:Gestati onal diabetes mellitus (GDM), antepartum, gestational diabetes method of control unspecified Use to test blood sugars 4 times daily (fasting, 1 hour after breakfast, lunch, and dinner) 1 Kit 0 06/04/2023 Active RocketBuxTouch Verio In Vitro Strip (Glucose Blood)Indications:Gest ational diabetes mellitus (GDM), antepartum, gestational diabetes method of control unspecified Use to test blood sugars 4 times daily (fasting, 1 hour after breakfast, lunch, and dinner) 125 Strip 6 06/04/2023 Active Recroupuch Delica Lancets 30GIndications:Gestati onal diabetes mellitus (GDM), [...] Recommend nutrition consult with RDN (Registered Dietitian Mechanical Lead). Lifestyle changes are also indicated including optimizing [...] Precautions reviewed. Supervision of high risk in [facility] 01/29/2023 Obesity affecting 01/29/2023 Overview: Pre [...] money to get more. Never true 01/15/2023 [place] Depression Scale Answer Date Recorded Meredosia Depression Scale Total 4 01/29/2023 The thought [...] as of this encounter Progress Notes * Hollie Penny CRNP - 06/17/2023 8:03 AM EST Images from the original note were not included. MATERNAL MEDICINE VISIT Patient location: HOME. I was not in a hospital or clinic location. After connecting through [facility], patient was verified with two unique identifiers. 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 Methods to assure confidentiality were taken. Patient acknowledged consent and understanding of privacy and security of the Telemedicine visit. The patient agreed to participate. Stella Kern is a 32 year old year old with intrauterine at 29w1d who presents to [facility] for management of diabetes in . CC/HPI: Here for f/u visit. Current issues include: previously elevated fasting blood sugars; improved by fasting 9 hours overnight after a bedtime snack of Kind or Halo ice cream bar. Had elevated FBS this morning; however, patient feels that this may be due to a change in her routine as she was out all day yesterday and eating at restaurants. All other fasting values WNL this week. Current management: Diet Diet: gestational diabetes diet Exercise: yoga Nutrition visit scheduled on 06/18/2023. Hypoglycemia episodes:N/A Recent growth scan: [facility] US: 04/10/2023 at 19w3d PEEWEE: "normal" EFW: 290g (42% Hadlock) Glucose review: She reports her home blood glucose as following: REVIEW OF SYSTEMS: headaches: no nausea/vomiting: reports occas nausea after taking iron. reports movement: yes abdominal pain/tenderness/cramping/contractions: no vaginal bleeding: no vaginal leaking of fluid: no all other systems negative PHYSICAL EXAM: LMP 11/25/2022 (Exact Date) Constitutional: pleasant, well-developed, well nourished General: pleasant, alert and oriented Neuro: mood and affect normal, alert and oriented, no acute distress DISCUSSION: We discussed continuing to test blood sugars 4 times a day (fasting, one hour after breakfast, lunch, and dinner) 2. Briefly reviewed GDM diet recommendations including, avoiding processed suagars, sweetened drinks, white flour. Recommend Counting carbohydrates - Breakfast: 45 grams carbohydrate, Snack: 15-20 grams carbohydrate, Lunch: 45 grams carbohydrate, Afternoon Snack: 15-20 grams carbohydrate, Dinner: 45 grams carbohydrate, bedtime snack 20-30 grams carbohydrate. Advised to have protein with every meal and snack, 70 grams total daily. Advised compliance with Mechanical Lead consult. 3. We discussed eating a snack to help with sugar control in the fasting timeframe. 4. Encouraged 20-30 minutes a day of exercise (walking, light upper body strength training, yoga, stationary cycling, or swimming) 5. We discussed the predisposing factors for gestational diabetes including ethnic background, family history, maternal body mass index, and use of some medications. We discussed that placental hormones often cause a woman who is not diabetic but has predisposing factors before to exhibitinsulin resistance and gestational diabetes during 6. We discussed the goal of euglycemia in order to create a stable environment for the fetus. She is aware that with diabetes are at increased risk for multiple complications to both mother and fetus 7. I encouraged the patient to reach out to [facility] in the event that she has any questions regarding diabetes management. RECOMMENDATIONS: Management: Continue diet control Scheduled on 06/[address] Rose for growth scan Follow up for glucose management in 1 week via [employer] [facility] Follow up as needed via telemedicine for ADAPT (Advanced Diabetes And Team). Thank you for allowing us to participate in the care of this patient. Please call with any questions. RAULITO Villavicencio 06/17/2023 8:32 AM documented in this encounter Plan of Treatment Upcoming Encounters Date Type Department Care Team (Late st Contact Info) Description 06/17/2023 11:30 AM EST Office Visit Gynecology/Obstetrics [address] [place] [address] Zhanna Noble CRNP [address] [facility] [place] [address] 06/18/2023 3:00 PM EST Telemedicine Virtual, [facility] Services [address] [facility] [address] Gale Turk, RDN [address] [place] [address] 06/20/2023 8:00 AM EST Office Visit Jewelry Store Manager Obstetrics Maternal Medicine, [place] [address] [place] [address] Micheline Rsoe DO [address] [place] [address] 06/20/2023 8:00 AM EST Imaging Radiology [place] [address] [place] [address] 07/01/2023 11:30 AM EDT Office Visit Gynecology/Obstetrics [address] [place] [address] Zhanna Noble CRNP [address] [place] [address] 07/15/2023 11:30 AM EDT Office Visit Gynecology/Obstetrics [address] [place] [address] Zhanna Noble CRNP [address] [place] [address] 07/16/2023 8:30 AM EDT Telemedicine Psychiatry, [place] [address] [place] [address] Bam Doe CRNP [address] [place] [id number] 07/18/2023 8:00 AM EDT Office Visit Jewelry Store Manager Obstetrics Maternal Medicine, [place] [address] [place], [place] [id number] Naseem Ramirez MD [address], [place] [id number] 07/18/2023 8:00 AM EDT Imaging Radiology [facility] [address] [place] [address] Health Maintenance Due Date Last Done Comments [...] controlled gestational diabetes mellitus (GDM), antepartum- Primary Supervision of high risk in third trimester Unspecified high-risk documented in this encounter
--- OUTSIDE RECORDS SUMMARY | 2023-08-11 19:36 | External Medical Summary | Summary of Care ---
Author Name Unknown Organization [facility] Address [address] [place] [address] Phone [phone] Care Team Providers Care Speech Instructor Name Role Phone Unavailable Primary Care Provider Unavailabl e Reason for Visit * Reason Comments DSMT INITIAL * Evaluate & Treat - Unlimited Visits (Within 10 days (routine)) - Pending Review Specialty Diagnoses / Procedures Referred By Contgillian t Referred To Contact Applied Psychology Teacher / Nutrition Services Diagnoses Gestational diabetes mellitus (GDM), antepartum, gestational diabetes method of control unspecified Maddi Rice CRNP [address] [place] [address] Referral ID Status Reason Start Date Expiration Date Visits Requested Visits Authorized [id number] Pending Review Specialty Services Required 06/04/[phone] Encounter Details Date Type Department Care Team (Late st Contact Info) Description 06/18/2023 3:00 PM EST Telemedicine Virtual, Nutrition Services [address] [place] [address] Gale Turk, LEONEL [address] [place] [address] [place] [id number] Diet controlled gestational diabetes mellitus (GDM), antepartum*; Antepartum anemia complicating ; Obesity affecting ; Anxiety during ; Supervision of high risk in third trimester; Uterine fibroid in ; Gestational diabetes mellitus (GDM), antepartum, gestational diabetes method of control unspecified [O24.419] Allergies Active Allergy Reactions Criticality Noted Date Comments Tetanus Toxoid 03/22/2009 Leg swelling documented as of this encounter (statuses as of 06/18/2023) Medications Medication Sig Dispensed Refills Start Date [...] the morning. 30 Tablet 3 06/04/2023 Active [employer]stice EndeavorsTouch Verio Flex System w/Device KitIndications:Gestati onal diabetes mellitus (GDM), antepartum, gestational diabetes method of control unspecified Use to test blood sugars 4 times daily (fasting, 1 hour after breakfast, lunch, and dinner) 1 Kit 0 06/04/2023 Active [employer] EndeavorsTouch Verio In Vitro Strip (Glucose Blood)Indications:Gest ational diabetes mellitus (GDM), antepartum, gestational diabetes method of control unspecified Use to test blood sugars 4 times daily (fasting, 1 hour after breakfast, lunch, and dinner) 125 Strip 6 06/04/2023 Active [employer]stice EndeavorsTouch Delica Lancets 30GIndications:Gestati onal diabetes mellitus (GDM), antepartum, gestational diabetes method of control unspecified Use to test blood sugars 4 times daily (fasting, 1 hour after breakfast, lunch, and dinner) 200 Each 6 06/04/2023 Active documented as of this encounter (statuses as of 06/18/2023) Active Problems Problem Noted Date Diagnosed Date [...] 06/05/23: MFM ADAPT consult complete. Enrolled in [facility]. Instructions provided to report [...] Recommend nutrition consult with RDN (Registered Dietitian Pressing Department Supervisor). Lifestyle changes are also indicated including optimizing [...] as of this encounter (statuses as of 06/18/2023) Resolved Problems Problem Noted Date Diagnosed Date Resolved Date Supervision of high risk pre gnancy in first trimester 02/11/2023 06/04/2023 with 11 completed weeks gestation 02/11/2023 04/10/2023 documented as of this encounter (statuses as of 06/18/2023) Social History Tobacco Use Types Packs/Day Years [...] money to get more. Never true 01/15/2023 Dalhart Depression Scale Answer Date Recorded Dalhart Depression Scale Total 4 01/29/2023 The thought [...] this encounter Patient Instructions * Patient Instructions* Tess Sargent RDN - 06/18/2023 3:28 PM EST Nutrition: To improve blood glucose control I will follow meal plan of Breakfast: 15-30 grams carbohydrate Snack: 15-30 grams carbohydrate Lunch: 30-60 grams carbohydrate Snack: 15-30 grams carbohydrate Dinner: 30-60 grams carbohydrate Bedtime snack: 15-30 grams carbohydrate documented in this encounter Progress Notes * Tess Sargent RDN - 06/18/2023 3:27 PM EST DIABETES SELF-MANAGEMENT TRAINING Gestational Diabetes Group Session Name: Stella Kern Date: 06/18/2023 Patient location: HOME. I was in a hospital or clinic location. After connecting through [employer],patient was verified with two unique identifiers. Patient (or authorized legal brand representative) was then informed that this was a Telemedicine visit and being conducted confidentially over secure lines. Methods to assure confidentiality were taken. Patient acknowledged consent and understanding of pr ivacy and security of the Telemedicine visit. The patient agreed to participate. ADA referral in place? Yes What diabetes concerns and/or barriers to care would you like to discuss in your appointment: Diabetes with gestational diabetes. Here for education. What is gestational diabetes? When do I test my blood sugar? Will I need medication for gestational diabetes? What diet do I follow for gestational diabetes? What does exercise do to my blood sugar? Will this go away for me and the baby? What type of diabetes to you have? Gestational Diabetes DSMT Initial Visit Assessment of Content Areas: Choose the answer that represents the participant's competency in each area. All need to be assessed at initial. Areas taught must match intervention. If content area not assessed and/or intervened today, it will be deferred to future session. Diabetes disease process and treatment process: Needs instruction (1) Incorporating nutrition management into lifestyle: Needs instruction (1) Incorporating physical activity into lifestyle: Needs instruction (1) Using medications safely: Needs instruction (1) Monitoring blood glucose, interpreting and using results: Needs instruction (1) Prevention, detection, and treatment of acute complications: Needs instruction (1) Prevention, detection, and treatment of chronic complications: Needs instruction (1) Developing strategies to address psychosocial issues: Needs instruction (1) Developing strategies to promote health/change behavior: Needs instruction (1) Nutrition Diagnosis: Food and Nutrition Related Knowledge Deficit related to limited prior nutrition- related education as evidenced by referral to be seen for gestational diabetes and enrolled in group session for education. DSMT/ Diabetes MNT intervention: Pathophysiology: Defined disease process. Nutrition: GDM nutrition: Educated on rationale and guidelines of nutritional management of GDM. Emphasis on need for carbohydrate control/consistency with structured meal schedule. Taught participant how to read a food label. Importance of also meeting nutritional needs of reinforced. Stressed importance of avoiding sugar sweetened beverages, fruit juices. Encouraged bedtime snack 8-10 hours before fasting test the next day. Recommended starting meal pattern provided = Breakfast: 15-30 grams carbohydrate Snack: 15-30 grams carbohydrate Lunch: 30-60 grams carbohydrate Snack: 15-30 grams carbohydrate Dinner: 30-60 grams carbohydrate Bedtime snack: 15-30 grams carbohydrate Physical Activity: Educated on the role of physical activity on glucose control. Educated on the options for physical activity given participant's diabetes complications or other health issues. Medication: Reviewed that due to hormonal insulin resistance in , there may be a need for medication to achieve blood glucose levels in target. Monitoring: blood glucose and targets: Educated on blood glucose monitoring and recommended testing times of fasting and 1-OR 2-hour post meals with targets of less than 95 fasting, 1-hour post meal ofless than 140 OR 2-hour post meal of less than 120. Encouraged logging blood glucoses and reported readings 1 time weekly to care team. Chronic Complications: Educated on the risks of uncontrolled blood glucose during and post for mom and /. Promote health/Change behavior: : Educated on the effects of diabetes prior to and during . Reviewed importance of glucose screening after having gestational diabetes. Participant Selected Behavioral Objective: Nutrition: To improve blood glucose control I will follow meal plan of Breakfast: 15-30 grams carbohydrate Snack: 15-30 grams carbohydrate Lunch: 30-60 grams carbohydrate Snack: 15-30 grams carbohydrate Dinner: 30-60 grams carbohydrate Bedtime snack: 15-30 grams carbohydrate Education materials given to participant/caregiver and reviewed during today's visit: Kamille Materials: What is Gestational Diabetes? Healthy Meals for Diabetes Understanding Carbohydrates Possible Future Topics: Content areas that were not assessed in first visit: Acute complications Psychosocial/healthy coping Time Spent With Patient: Time in: 3:06 PM Time out: 3:54 PM Billing: DSMT: 1 unit, 30 minutes This visit was completed as a virtual group session. Plan for Return: 2-4 week return Participant provided with contact information for Diabetes Care and Parts Delivery Driver. All [facility] providers within the system are able to see ADA education and outcomes within the participant electronic medical record. Gale Turk RDN, Diabetes Care and Parts Delivery Driver Tess Sargent RDN, NUTRITION SERVICES VIRTUAL Diabetes Care and Parts Delivery Driver documented in this encounter Miscellaneous Notes * Pt Handout (on AVS) - Tess Sargent RDN - 06/18/2023 3:29 PM EST Images from the original note were not included. [id number] What Is Gestational Diabetes? Diabetes is when your body doesn?t use blood sugar normally. Gestational diabetes happens only in . When food is digested, it turns into sugar (glucose) that goes into your bloodstream. Yourbody sends out insulin. This is a hormone that helps your cells use this blood sugar for energy. Changes in your body during may affect this process. This can cause your blood sugar to be too high. This can cause problems for both you and your baby. You can take steps to control your blood sugar. This will help reduce the risks for you and your baby. Managing gestational diabetes You need to control your blood sugar while you are . Your healthcare team will help you make a plan to do this. This plan will include: Eating the right foods. This is the main way to control your blood sugar. You need to eat a variety of healthy foods each day. To help you plan changes in your diet, you will likely work with a registered dietitian. This is an expert on food and nutrition. The dietitian may have you take part urmila nutrition program to help you reach your goals. Getting exercise. Your body uses more blood sugar when you exercise. Your healthcare team can help you pick the best kinds of exercise for you. Checking your blood sugar. You will likely need to check your blood sugar at home. You will do this 2 or more times a day. Your healthcare team will teach you how. They will talk with you about your blood sugar goals. Your blood sugar may also be tested every week or so at a clinic. If your blood sugar stays too high, you may need to have insulin shots during your . Risks to your baby If your blood sugar stays high, your baby is at risk for these problems: Your baby may grow too large. If your blood sugar stays too high, your baby may grow too large. This is called macrosomia. This means a baby is too big for a safe vaginal . A large baby may get their shoulder stuck behind the pubic bone during . This is called shoulder dystocia. The baby's arms and shoulders could be injured. This may cause permanent arm damage. The baby may also have low oxygen levels (hypoxia) while they are stuck. Hypoxia can lead to cerebral palsy. In rare cases, it can lead to . Your baby?s organs may not be fully grown at . If you have diabetes, your baby may need to be delivered early. This may be because of problems with the . Or it may be because of risks to you or your baby. If your baby is delivered early, their lungs may not work well. This is called respiratory distress syndrome. Your baby's liver also may not work normally. And your baby may have yellow color in their skin and eyes (jaundice) after . Your baby?s blood sugar may be low after . If your blood sugar is too high, your baby makesextra insulin. The baby will keep making extra insulin right after . Your baby may need to be treated for low blood sugar. Your baby could be stillborn. This is very rare. But your baby could before if your blood sugar stays high for too long. Risks to you If you don?t control your blood sugar, you are more likely to have: High blood pressure. High blood sugar makes you more likely to have high blood pressure during your . This is a danger to your health. It could lead to early delivery for your baby. Infections. High blood sugar makes you more likely to have bladder, kidney, and vaginal infections. Trouble breathing. You may feel short of breath. High blood sugar can cause too much fluid around the baby. This is called polyhydramnios. Your abdomen gets big and pushes up on your lungs. Difficult labor. Your delivery may be harder. And your recovery may take longer. If your blood sugar stays too high, your baby may grow too large. A large baby might cause injury to you during . Or the baby may have to be delivered by section (). This means making a cut (incision) in your abdomen and uterus. A is a common risk of gestational diabetes. Reduce your future risk for type 2 diabetes Women who have gestational diabetes are at higher risk of type 2 diabetes later. You are also at higher risk for gestational diabetes in your next . You can help reduce your risk in these ways: Lose excess weight. Be as active as you can. Eat more fruits and vegetables. Eat fewer processed foods. Get regular blood tests to check for diabetes. Who is at risk for gestational diabetes? You're more at risk if you: Are overweight Have a family history of diabetes Have had a baby who before Had gestational diabetes in the past Are , , , [place] or [place] , or How daily issues affect your health Many things in your daily life impact your health. This can include transportation, money problems,housing, access to food, and childcare. If you can?t get to medical appointments, you may not receive the care you need. When money is tight, it may be difficult to pay for medicines. And living far from a grocery store can make it hard to buy healthy food. If you have concerns in any of these or other areas, talk with your healthcare team. They may know of local resources to assist you. Or they may have a staff person who can help. Last Reviewed Date: 11/13/202219993093-2309 [employer]. All rights reserved. This information is not intended as a substitute for professional medical care. Always follow your healthcare professional's instructions. * Pt Handout (on AVS) - Tess Sargent RDN - 06/18/2023 3:29 PM EST Images from the original note were not included. 70299 Understanding Carbohydrates A car needs the right type of fuel to run. And you need the right kind of food to function. To keepyour energy level up, your body needs food that has carbohydrates (carbs). But carbs raise blood sugar levels higher and faster than other kinds of food. Your dietitian will work with you to figure out the amount of carbs you need. Carbs come in 3 types: starches, sugars, and fiber. Starches Starches are found in grains, some vegetables, and beans. Grain products include bread, pasta, cereal, and tortillas. Starchy vegetables include potatoes, peas, corn, flores beans, yams, and squash. Kidney beans, nation beans, black beans, garbanzo beans, and lentils also have starches. Sugars Sugars are found naturally in many foods. Or they can be added. Foods that contain natural sugar include fruits and fruit juices, dairy products, honey, and molasses. Added sugars are found in most desserts, processed foods, candy, regular soda, and fruit drinks. These are very helpful to treat lowblood sugar (hypoglycemia). They give you sugar quickly. Try to keep at least 15 to 20 grams of these simple sugars with you at all times. Eat or drink these if you start to have symptoms of low blood sugar. Fiber Fiber comes from plant foods. Your body can't digest most fiber. Instead of raising blood sugar levels like other carbs, fiber stops blood sugar from rising too fast. Fiber is found in fruits, vegetables, whole grains, beans, peas, and many nuts. Carb counting Keep track of the amount of carbs you eat. This can help you keep the right balance of carbs, physical activity, and medicine. The amount of carbs you need will be different from what other people need. How much you need depends on many things. These include your health, the medicines you take, andhow active you are. Your healthcare team will help you figure out the right amount of carbs for you. You may start with 45 to 60 grams of carbs per meal, depending on your case. Carb counting is a system that helps you keep track of the carbohydrates you eat at each meal. Carbs come from many foods. These include grains, starchy vegetables, fruit, milk, beans, and snackfoods. You can either count carbohydrate grams or carbohydrate servings. When you count carbohydrate servings, 1 carbohydrate serving = 15 grams of carbohydrates. Here are some examples of foods that have about 15 grams of carbs (1 serving of carbohydrates): 1/2 cup of canned or frozen fruit A small piece of fresh fruit (4 ounces) 1 slice of bread 1/2 cup of oatmeal 1/3 cup of rice 4 to 6 crackers 1/2 Wolof muffin 1/2 cup of black beans 1/4 of a large baked potato (3 ounces) 2/3 cup of plain fat-free yogurt 1 cup of soup 1/2 cup of casserole 6 chicken nuggets 5-[id number]-vaqoni brownie or cake without frosting 2 small cookies 1/2 cup of ice cream or sherbet Carb counting is easier when food labels are available. Look at the label to see how many grams of total carbs per serving the food contains. Then you can figure out how much you should eat. If your food doesn't have a nutrition label, you should be able to get an idea how many carbs there are per serving by using a book or website. Two very important lines to look at on the label are the serving size and the total carbohydrate amount per serving. Here are some tips for using food labels to count your carbs: Check the serving size. The information on the label is based on that serving size. If you eat more than the listed serving size, you may have to double or triple the other information on the label. Check the total grams of carbs. Total carbohydrate from the label includes sugar, starch, and fiber. Be sure to use the total carbohydrate number (minus the fiber) and not sugar alone. Know how many grams of carbs you can have. Be familiar with the matching portion sizes. Compare labels. Compare the labels of different products. Look at serving sizes and total carbs to find the products that work best for you. Don't forget protein and fat. With the focus on carb counting, it might be easy to forget protein and fat in your meals. Don't forget to include sources of protein and healthy fat to balance your meals. Also watch how much salt (sodium) you eat. This is especially true if you have high blood pressure. If you have diabetes, limit the amount of sodium to less than 2,300 mg a day. It?s also important to be consistent with the amount of carbs and time you eat when taking a fixed dose of diabetes medicine. Work with your healthcare provider or dietitian if you need more help. They can help you keep track of your carbs. They can also help you figure out how many grams of carbs you should have. Last Reviewed Date: 03/15/202119992198-4603 [employer]. All rights reserved. This information is not intended as a substitute for professional medical care. Always follow your healthcare professional's instructions. * Pt Handout (on AVS) - Tess Sargent RDN - 06/18/2023 3:29 PM EST Images from the original note were not included. [id number] Healthy Meals for Diabetes Ask your healthcare team to help you make a meal plan that fits your needs. Your meal plan tells you when to eat your meals and snacks, what kinds of foods to eat, and how much of each food to eat. You don?t have to give up all the foods you like. But you do need to follow some guidelines. A healthcare provider will help you develop a meal plan that fits your needs. Choose healthy carbohydrates Starches, sugars, and fiber are all types of carbohydrates (carbs). Carbs can get a bad reputation,especially since they affect your blood sugar. But your body benefits from the right amount of healthy carbs. Fiber can help lower your cholesterol and triglycerides. Fiber is also healthy for your heart. You should have 20 to 35 grams of total fiber each day. Fiber comes from plants. Fiber-rich foods include: Whole-grain breads and cereals Nuts Brown rice and quinoa Whole-wheat pasta Fruits and vegetables Beans and peas Keep track of the amount of carbs you eat. This can help you keep the right balance of physical activity and medicine. The amount of carbs needed will vary for each person. It depends on many things such as your health, the medicines you take, and how active you are. Your healthcare team will help you figure out the right amount of carbs for you. You may start with around 45 to 60 grams of carbs per meal, depending on your situation. Here are some examples of foods containing about 15 grams of carbs (1 serving of carbs): 1/2 cup of canned or frozen fruit A small piece of fresh fruit (4 ounces) 1 slice of bread 1/2 cup of oatmeal 1/3 cup of rice 4 to 6 crackers 1/2 Wolof muffin 1/2 cup of black beans 1/4 of a large baked potato (3 ounces) 2/3 cup of plain fat-free yogurt 1 cup of soup 1/2 cup of casserole 6 chicken nuggets 2-fvyg-edfuso brownie or cake without frosting 2 small cookies 1/2 cup of ice cream or sherbet Choose healthy protein foods Proteins plays a mercado role in building healthy muscles, bones, skin, and many other parts of your body. Eating protein that's low in fat can help you control your weight. It also helps keep your hearthealthy. Low-fat protein foods include: Fish Plant proteins, such as lentils, beans, peas, nuts, and soy products like tofu and soymilk Lean meat with all visible fat removed Poultry with the skin removed Low-fat or nonfat milk, cheese, and yogurt Limit unhealthy fats and sugar Saturated and trans fats are unhealthy for your heart. They raise LDL ("bad") cholesterol. Fat is also high in calories, so it can make you gain weight. To cut down on unhealthy fats and sugar, limitthese foods: Butter or margarine Palm and palm kernel oils and coconut oil Cream Cheese [place] Lunch meats Ice cream Sweet bakery goods such as pies, muffins, and donuts Jams and jellies Candy bars Regular sodas How much to eat The amount of food you eat affects your blood sugar. It also affects your weight. Your healthcare team will tell you how much of each type of food you should eat. Use measuring cups and spoons and a food scale to measure serving sizes. Learn what a correct serving size looks like on your plate. This will help when you're away fromhome and can?t measure your servings. For instance, a serving of meat is about the size of the palmof your hand. Eat only the number of servings given on your meal plan for each food. Don?t take seconds. Learn to read food labels. Be sure to look at serving size, total carbohydrates, fiber, calories, sugar, salt, and saturated and trans fats. Look for healthier options to foods that have added sugar or salt. Plan ahead for parties. Then you can still have a good time without going overboard with unhealthy food choices. Set a good example yourself by bringing a healthy dish to [employer]. Choose healthy snacks When it comes to snacks, we often think about foods with added sugar and fats. But there are many other options for healthier snack choices. Here are a few snack ideas to choose from: Snacks with less than 5 grams of carbohydrates 1 piece of string cheese 3 celery sticks plus 1 tablespoon of peanut butter 5 moore tomatoes plus 1 tablespoon of ranch dressing 1 hard-boiled egg 1/4 cup of fresh blueberries 5 baby carrots 1 cup of light popcorn 1/2 cup of sugar-free gelatin 15 almonds Snacks with about 10 to 20 grams of carbohydrates 1/3 cup of hummus plus 1 cup of fresh cut nonstarchy vegetables (carrots, green peppers, broccoli, celery, or a mix) 1/2 cup of fresh or canned fruit plus 1/4 cup of cottage cheese 1/2 cup of tuna salad with 4 crackers 2 rice cakes and a tablespoon of peanut butter 1 small apple or orange 3 cups light popcorn 1/2 of a turkey sandwich (1 slice of whole-wheat bread, 2 ounces of turkey, and mustard) Portion sizes are important to controlling your blood sugar and staying at a healthy weight. Stock up on healthy snack items so you always have them on hand. When to eat Your meal plan will likely include breakfast, lunch, dinner, and some snacks. Try to eat your meals and snacks at about the same times each day. Eat all your meals and snacks. Skipping a meal or snack can make your blood sugar drop too low. It can also cause you to eat too much at the next meal or snack. Then your blood sugar could get toohigh. Last Reviewed Date: 03/15/202119993971-8292 [employer]. All rights reserved. This information is not intended as a substitute for professional medical care. Always follow your healthcare professional's instructions. documented in this encounter Plan of Treatment Upcoming Encounters Date Type Department Care Team (Late st Contact Info) Description 06/20/2023 8:00 AM EST Office Visit [employer] Deposit Clerk Obstetrics Maternal Medicine, [address] [address] Micheline Rose DO [address] [place] [address] 06/20/2023 8:00 AM EST Imaging Radiology [facility], [place] [address] [place] [address] 07/01/2023 11:30 AM EDT Office Visit Gynecology/Obstetrics [address] [place] [address] Zhanna Noble CRNP [address] [place] [id number] 07/15/2023 11:30 AM EDT Office Visit Gynecology/Obstetrics [address] [place] [address] Zhanna Noble CRNP [address] [place] [id number] 07/16/2023 8:30 AM EDT Telemedicine Psychiatry, [address] [address] Bam Doe [facility] [place] [id number] 07/18/2023 8:00 AM EDT Office Visit [employer]osit Clerk Obstetrics Maternal Medicine, [place] [address] [place] [address] Naseem Ramirez MD [address] [place] [address] 07/18/2023 8:00 AM EDT [facility] [place] [address] [place], [place] [id number] Scheduled Referrals Name Type Priority Associated Diagnoses Orde r Schedule DIABETES MANAGEMENT EDUCATION (ADA) REFERRAL Referral Within 10 days (routine) Gestational diabetes mellitus (GDM), antepartum, gestational diabetes method of control unspecified Ordered: 06/04/2023 Health Maintenance Due Date Last Done Comments [...] controlled gestational diabetes mellitus (GDM), antepartum- Primary Antepartum anemia complicating Anemia, antepartum Obesity affecting Anxiety during Supervision of high risk in third trimester Unspecified high-risk Uterine fibroid in Tumors of body of uterus, unspecified as to episode of care in Gestational diabetes mellitus (GDM), antepartum, gestational diabetes method of control unspecified [O24.419] documented in this encounter
--- OUTSIDE RECORDS SUMMARY | 2023-08-11 19:36 | External Medical Summary ---
Author Name Unknown Address Unknown Organization K01:[facility] [place] [address] [place] [address] Laboratory Report Ordering Provider Test Date Status NICHOLAS ARCHIBALDTUNG 07/01/2023 11:40:39 Final Observation Date Value Abnormality Reference (Units ) Status SYNC LEUKOCYTES IN BLOOD BY AUTOMATED COUNT 07/01/2023 11:40:39 9.70 4.00-10.80 (K/uL) Final Segs 07/01/2023 11:40:39 74.6 40.0-75.0 (%) Final Lymphs % 07/01/2023 11:40:39 16.6 Below low normal 18.0-42.0 (%) Final Monos 07/01/2023 11:40:39 7.0 1.0-11.0 (%) Final Eosinophils 07/01/2023 11:40:39 0.6 0.0-6.0 (%) Final Basos 07/01/2023 11:40:39 0.3 0.0-2.0 (%) Final Immature Granulocyte, Percent 07/01/2023 11:40:39 0.9 0.0-2.0 (%) Final Absolute Segs 07/01/2023 11:40:39 7.23 1.80-7.70 (K/uL) Final Lymphs, absolute 07/01/2023 11:40:39 1.61 1.00-4.80 (K/ul) Final Monos, Abs 07/01/2023 11:40:39 0.68 0.00-1.10 (K/uL) Final Eos, Abs 07/01/2023 11:40:39 0.06 0.00-0.70 (K/uL) Final Basos, Abs 07/01/2023 11:40:39 0.03 0.00-0.20 (K/uL) Final Immature Granulocytes, Number 07/01/2023 11:40:39 0.09 0.00-0.20 (K/uL) Final Performing Location [facility] [place] [address] [facility] [id number]
--- OUTSIDE RECORDS SUMMARY | 2023-08-11 19:36 | External Medical Summary | Summary of Care ---
Author Name Unknown Organization [facility] Address [address] [place] [address] Phone [phone] Care Team Providers Care Library Services Coordinator Name Role Phone Unavailable Primary Care Provider Unavailabl e Reason for Referral * Evaluate & Treat - Unlimited Visits (Within 3 days (urgent)) - Pending Review Specialty Diagnoses / Procedures Referred By Contac t Referred To Contact Pharmacy Technician Assistant Diagnoses Diet controlled gestational diabetes mellitus (GDM), antepartum Shannan Pruitt CRNP [address] [place] [address] Referral ID Status Reason Start Date Expiration Date Visits Requested Visits Authorized [id number] Pending Review Specialty Services Required 06/05/2023 1 1 Question Answer Referral Priority Within 3 days (urgent) Where should this appointment be scheduled? [facility] Program Type Chronic Disease Management Chronic Disease Management Diabetes in Alarm Settings Standard per protocol Comments OneTouch verio Reason for Visit * Reason Comments Consultation GESTATIONAL DIABETES * Evaluate & Treat - Unlimited Visits (Within 10 days (routine)) - Authorized Specialty Diagnoses / Procedures Referred By Contac t Referred To Contact Obstetrics/Gynecology / Maternal Medicine Diagnoses Gestational diabetes mellitus (GDM), antepartum, gestational diabetes method of control unspecified Maddi Rice CRNP [address] [id number] Referral ID Status Reason Start Date Expiration Date Visits Requested Visits Authorized [id number] Authorized Specialty Services Required 06/04/2023 06/04/[phone] Encounter Details Date Type Department Care Team (Late st Contact Info) Description 06/05/2023 4:15 PM EST Telemedicine Professor Of Business Administration Obstetrics Maternal Medicine, [place] [address] [place] [address] Shannan Pruitt CRNP [address] [place] [address] Diet controlled gestational diabetes mellitus (GDM), antepartum*; Supervision of high risk in third trimester; with 27 completed weeks gestation Allergies Active Allergy Reactions Criticality Noted Date Comments Tetanus Toxoid 03/22/2009 Leg swelling documented as of this encounter (statuses as of 06/05/2023) Medications Medication Sig Dispensed Refills Start Date [...] 06/04/2023 Active OneTouch Verio Flex System w/Device KitIndications:Gestati onal diabetes mellitus (GDM), antepartum, gestational diabetes method of control unspecified Use to test blood sugars 4 times daily (fasting, 1 hour after breakfast, lunch, and dinner) 1 Kit 0 06/04/2023 Active OneTouch Verio In Vitro Strip (Glucose Blood)Indications:Gest ational diabetes mellitus (GDM), antepartum, gestational diabetes method of control unspecified Use to test blood sugars 4 times daily (fasting, 1 hour after breakfast, lunch, and dinner) 125 Strip 6 06/04/2023 Active OneTouch Delica Lancets 30GIndications:Gestati onal diabetes mellitus (GDM), antepartum, gestational diabetes method of control unspecified Use to test blood sugars 4 times daily (fasting, 1 hour after breakfast, lunch, and dinner) 200 Each 6 06/04/2023 Active documented as of this encounter (statuses as of 06/05/2023) Active Problems Problem Noted Date Diagnosed Date [...] Recommend nutrition consult with RDN (Registered Dietitian [place]man). Lifestyle changes are also indicated including optimizing [...] Precautions reviewed. Supervision of high risk in [facility] 01/29/2023 Obesity affecting 01/29/2023 Overview: [...] as of this encounter (statuses as of 06/05/2023) Resolved Problems Problem Noted Date Diagnosed Date Resolved Date Supervision of high risk pre gnancy in first trimester 02/11/2023 06/04/2023 with 11 completed weeks gestation 02/11/2023 04/10/2023 documented as of this encounter (statuses as of 06/05/2023) Social History Tobacco Use Types Packs/Day Years [...] to get more. Never true 01/15/2023 [place] Depression Scale Answer Date Recorded [place] Depression Scale Total 4 01/29/2023 The thought [...] as of this encounter Progress Notes * Shannan Pruitt CRNP - 06/05/2023 4:53 PM EST MATERNAL MEDICINE CONSULT Stella Kern Consult date; 06/05/23 REFERRING PROVIDER: RAULITO Carballo Patient location: HOME. I was in a hospital or clinic location. After connecting through televideo,patient was verified with two unique identifiers. 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 Methods to assure confidentiality were taken. Patient acknowledged consent and understanding of pr ivacy and security of the Telemedicine visit. The patient agreed to participate. Stella Kern is a 32 year old with intrauterine at 27w3d (Estimated Date of Delivery: 09/01/23 by exact LMP) who presents today for an MFM consult due to gestational diabetes. Ms. Kern had a full MFM consult on 02/11/2023 due to obesity, uterine fibroids and anxiety. HPI/CURRENT : pre- BMI=class 1 obesity (91.6 kg (202 lb); 5' 5"); complicated by above. Genetic testing: Opted out OB JENY KEITA Problems (from 01/28/23 to present) Problem Noted Resolved Gestational diabetes mellitus (GDM), antepartum 06/04/2023 by Maddi Rice CRNP No Overview Addendum 06/05/2023 4:46 PM by Shannan Pruitt CRNP Diagnosed at 27 weeks Nutrition consult ordered [...] up meter 06/05/2023 95 Fasted 12 hours overnight 132 87 x 06/05/23: MFM ADAPT consult complete. Enrolled in Current Health. Instructions provided to report blood sugars each week for MFM review; Discussed having bedtime snack (20-30 gr carbohydrate + protein) and fasting for no longer than 8-10 hours overnight. I have reviewed this patient's previous OB ultrasound reports, pertinent labwork and testing provided by her referring OB provider. Current Outpatient Medications Medication Sig Dispense Refill Ferrous Sulfate 325 (65 Fe) MG Oral Tablet (Feosol) Take 1 Tablet by mouth in the morning and 1 Tablet before bedtime. 60 Tablet 3 [employer] DelMoonshado Lancets 30G Use to test blood sugars 4 times daily (fasting, 1 hour after breakfast, lunch, and dinner) 200 Each 6 Abbott Labsio Flex System w/Device Kit Use to test blood sugars 4 times daily (fasting, 1 hour after breakfast, lunch, and dinner) 1 Kit 0 [employer] Rackwiseio In Vitro Strip (Glucose Blood) Use to test blood sugars 4 times daily (fasting, 1 hour after breakfast, lunch, and dinner) 125 Strip 6 Vitamin 27-0.8 MG Oral Tablet Take by mouth. Sertraline HCl 100 MG Oral Tablet (Zoloft) Take 1 Tablet by mouth in the morning. In the morning.. 30 Tablet 3 Vitamin B-12 1000 MCG Oral Tablet (Cyanocobalamin) Take 1 Tablet by mouth in the morning. 30 Tablet3 Vitamin C 250 MG Oral Tablet Chewable Take 1 Tablet by mouth in the morning and 1 Tablet before bedtime. Take with iron. 60 Tablet 3 No current facility-administered medications for this visit. Review of patient's allergies indicates: Allergen Reactions Tetanus Toxoid Leg swelling OB History Para Term AB Living 1 0 0 0 0 0 SAB IAB Ectopic Multiple Live Births 0 0 0 0 0 # Outcome Date GA Lbr Bandar/2nd Weight Sex Delivery Anes PTL Lv 1 Current Obstetric Comments 2023 FOB #1: Jayme, age 36, healthy,no other children Past Medical History: Diagnosis Date Anxiety 01/28/2023 Gestational diabetes mellitus (GDM), antepartum 06/04/2023 Uterine fibroid 2022 No past surgical history on file. Family History Problem Relation Age of Onset Hyperlipidemia Father Bipolar Disorder Mother Bipolar Disorder Sister Social History Tobacco Use Smoking status: Never Smokeless tobacco: Never Vaping Use Vaping Use: Never used Substance Use Topics Alcohol use: Not Currently Comment: denies during Drug use: Never REVIEW OF SYSTEMS: headaches: no nausea/vomiting: denies reports movement: yes abdominal pain/tenderness/cramping/contractions: no vaginal bleeding: no vaginal leaking of fluid: no all other systems negative PHYSICAL EXAM: LMP 11/25/2022 (Exact Date) General: Well appearing Psych: Alert to time, place, and person and Pleasant DISCUSSION/RECOMMENDATIONS: Problem List Items Addressed This Visit OB JENY KEITA Gestational diabetes mellitus (GDM), antepartum CONSIDERATIONS: Reviewed etiology and risks associated with gestational diabetes mellitus (GDM), including risks topregnancy, fetus, and maternal progression to Type 2 [...] Recommend nutrition consult with RDN (Registered Dietitian [place]man). Lifestyle changes are also indicated including optimizing gestational weight gain and physical activity of 30 minutes per day, if not otherwise contraindicated in . Insulin is preferred if medications are indicated to optimize euglycemia. Metformin (preferred overglyburide) may also be used in some circumstances. [...] with 75-gram glucose load 6-8 weeks . Follow up ultrasound with Maternal Medicine is scheduled on 06/20/[address] Rose for growth scan secondary to gestational diabetes and other indications. Patient is aware of upcoming MFM appointment. Total time spent face to face in this visit was 30 minutes of which more than 50% was spent discussing and counseling the patient/caregiver(s) regarding gestational diabetes, diet and exercise. Totaltime spent on this date of service including non face to face was 40 minutes in preparation, delivery, and documentation of care provided to Stella Kern, excluding time spent in performance of separately billable services. Details outlined above in impression and plan. RAULITO Stout 06/05/2023 4:57 PM documented in this encounter Miscellaneous Notes * Pt Handout (on AVS) - Shannan Pruitt CRNP - 06/05/2023 4:50 PM EST Images from the original note were not included. Managing Gestational Diabetes - Video Being diagnosed with gestational diabetes can be stressful. But with proper care and management, you can stay healthy and deliver a healthy baby. In many cases, gestational diabetes goes away on its own after the mother gives . To view the video go to this web address: [email or web address] Or, scan this QR code with your smart phone 2020 [employer] * Pt Handout (on AVS) - Shannan Pruitt CRNP - 06/05/2023 4:50 PM EST Images from the original note were not included. [id number]: Checking Your Blood Sugar - Video This video shows the steps to check your blood sugar. To view the video go to this web address: [email or web address] Or, scan this QR code with your smart phone Last Reviewed Date: 10/13/202019991317-9412 Generic Media. All rights reserved. This information is not intended as a substitute for professional medical care. Always follow your healthcare professional's instructions. * Pt Handout (on AVS) - Shannan Pruitt CRNP - 06/05/2023 4:50 PM EST Images from the original note were not included. [id number] What Is Gestational Diabetes? Diabetes is when [...] person who can help. Last Reviewed Date: 11/13/202219997845-3834 [employer]. All rights reserved. This information is not intended as a substitute for professional medical care. Always follow your healthcare professional's instructions. * Pt Handout (on AVS) - Shannan Pruitt CRNP - 06/05/2023 4:50 PM EST Images from the original note were not included. 06969 Understanding Carbohydrates A car needs the right [...] of rice 4 to 6 crackers 1/2 Haitian muffin 1/2 cup of black beans 1/4 of a large baked potato (3 ounces) 2/3 cup of plain fat-free yogurt 1 cup of soup 1/2 cup of casserole 6 chicken nuggets [id number] brownie or cake without frosting 2 small [...] carbs you should have. Last Reviewed Date: 03/15/202119996747-8967 Generic [employer]. All rights reserved. This information is not intended as a substitute for professional medical care. Always follow your healthcare professional's instructions. * Pt Handout (on AVS) - Shannan Pruitt CRNP - 06/05/2023 4:50 PM EST 81995 Understanding Blood Sugar During Gestational diabetes causes high blood sugar levels during . You are at risk of developing, or perhaps have already developed, gestational diabetes. Controlling your blood sugar can help prevent problems for you and your baby. Your body turns food into blood sugar As food is digested, it turns into sugar (glucose), a fuel that feeds your body. This sugar goes into your bloodstream. Your body then releases a substance called insulin to help your body use blood sugar correctly. Blood sugar goes to your baby The placenta is where nutrients in your blood are exchanged with your baby's blood. Your blood sugar goes to your baby from the placenta through the umbilical cord. Your baby uses this sugar to grow. Too much blood sugar affects you and your baby During , the placenta makes hormones that can disrupt the way your body uses insulin. If your body can't use insulin correctly, your blood sugar level gets too high. Then too much blood sugar goes to your baby. This can cause problems for both you and your baby. Controlling your blood sugar helps prevent problems You can lower your blood sugar by eating right, exercising, and taking medicines that your healthcare provider prescribes to control your blood sugar. If you keep your blood sugar in control, the risks to you and your baby are the same as those for a normal . Last Reviewed Date: 10/13/202019998312-5002 [employer]. All rights reserved. This information is not intended as a substitute for professional medical care. Always follow your healthcare professional's instructions. * Pt Handout (on AVS) - Shannan Pruitt CRNP - 06/05/2023 4:50 PM EST Images from the original note were not included. 84122 How to Check Your Blood Sugar Keeping track of how much sugar (glucose) is in your blood is an important part of self-care when you have diabetes. This is also called self-monitoring of blood glucose (SMBG). To make sure your glucose and insulin are in balance, check your blood sugar as instructed by your healthcare provider. You may need to check your blood glucose levels at certain times every day. Another way to keep track of your blood glucose is using a continuous glucose monitor (CGM). This small device uses tiny sensors attached to your skin. It is always recording your glucose levels in real time. You still may need to do finger sticks from time to time. This is to be sure the GCM is accurate. Think about teaching a close family member or friend how to test and record your blood sugar. This extra support may come in handy if you are ill. What you need To check your blood sugar, make sure you have: A small pricking needle (lancing device) Test strips A glucose meter with test strips that match it A way to keep track of your readings (smartphone, glucose meter, notebook, chart, or logbook) Using a blood glucose meter You can check your blood sugar at home, at work, and anywhere else. Your diabetes team will help you choose a blood glucose meter. A meter measures the amount of glucose in a tiny drop of blood. You?ll use a device called a lancet to draw a drop of blood. Put the strip in the meter first. Then touch the test strip to the drop of blood. The meter then gives you a number (reading). This is your blood sugar level. Aim for your target range Your blood sugar should be in your target range?not too high and not too low. A target range is where your blood sugar level is healthiest. Staying in this range as much as possible will help lower your risk for health problems (complications). Your diabetes team will help you figure out the best target range for you. That range depends on many things. They include: Your age Other health problems you may have How well your diabetes is controlled How long you've had diabetes In general, target ranges are: Control of blood glucose (A1C test, also called hemoglobin A1C). The goal for most people with diabetes is 7.0% or lower. The A1C is a blood test at the lab. It measures your blood sugar levels over the past 3 months. It is an important tool in managing your diabetes. Before a meal (preprandial glucose). The target range is between 80 and 130 mg/dL. 1 to 2 hours after a meal (postprandial glucose). The range is less than 180 mg/dL. At bedtime. The range should generally be between 90 and 150 mg/dL. Track your readings Use a smartphone, glucose meter, notebook, chart, or logbook to keep track of your readings. Recordthe date, time, and your blood sugar level numbers. This helps you see patterns. For instance, if you have high blood sugar after eating certain foods. Take your log information along when you see your healthcare provider. Also keep a list of any questions for your provider. They may also have an electronic medical record that offers helpful tools and tracking options. Your blood glucose levels are mercado. They help your provider decide if they need to make changes to your management plan. To check your blood sugar, follow the steps below. Step 1. Get ready Wash your hands for at least 20 seconds with soap and clean, running water. Follow all of the instructions that came with your glucose meter. Check that your test strips were designed to be used with your meter and that they haven't . Step 2. Draw a drop of blood Prick the side of your finger at the tip with the lancet. Squeeze gently until you get a drop ofblood. Squeezing too hard can cause an inaccurate reading. Put the lancet in a special sharps container. Ask your healthcare team where you can buy one or what you can use to throw away any sharps. If you can't get enough blood, hold your hand at your side and gently shake it. If this is a common problem for you, ask your provider if you can use other parts of your body to get the blood from. Step 3. Place the drop on a strip Wait for the meter to show a message or symbol that it's time to test. Touch the test strip to the drop of blood. Follow the instructions included with the meter. Step 4. Read and record your results Wait for your meter to show the result. If you see an error message, recheck using a fresh strip and a fresh drop of blood. Also recheckif the glucose numbers aren't what you expect?too low without symptoms, or too high for no reason. Record the results using the method you've chosen. Bring your record to your next appointment. Last Reviewed Date: 01/13/202319990407-8830 [employer]. All rights reserved. This information is not intended as a substitute for professional medical care. Always follow your healthcare professional's instructions. * Pt Handout (on AVS) - Shannan Pruitt CRNP - 06/05/2023 4:50 PM EST Images from the original note were not included. 04072 Checking Your Blood Sugar During Your healthcare provider will make sure you know how to check your blood sugar correctly. The only way to make sure your blood sugar stays in a normal range is to check it regularly. You will most likely be asked to check your blood sugar at home 1 or more times a day. Your healthcare provider will teach you how. They may also ask you to test your urine at home. Checking your blood sugar at home Your healthcare provider will discuss the best way and times for you to check your blood sugar. They will show you what to do. Your blood sugar is usually highest about an hour after you eat. You cancheck it using a blood glucose meter. Read the instructions that come with your meter. Follow them carefully. Write down your blood sugar level every time you check it. Bring the list of blood sugar levels to all your appointments with your healthcare provider. Also bring your glucose meter. When to call your healthcare provider Your blood sugar should be at these levels: Less than when you get up. Less than after breakfast. Less than after lunch. Less than after dinner. Check your blood sugar when you get up. Check it 1 to 2 hours after breakfast, lunch, and dinner, as your healthcare provider instructs. Your healthcare provider will tell you what to do if your blood sugar is higher than it should be. Call your healthcare provider if your blood sugar is above for more than . If you test your urine at home If you don?t eat enough, your body will burn fat to get energy. This leaves ketones in your urine. Your healthcare provider may have you check your urine for ketones each morning. You?ll do this withspecial strips of paper. They change color if there are ketones in your urine. This may mean that you?re not getting enough calories. Your healthcare provider may make changes in your meal plan. When to call your healthcare provider Call your provider if you have ketones in your urine for more than 2 days in a row. Last Reviewed Date: 10/13/202019993614-6261 Generic Media. All rights reserved. This information is not intended as a substitute for professional medical care. Always follow your healthcare professional's instructions. * Pt Handout (on AVS) - Shannan Pruitt CRNP - 06/05/2023 4:50 PM EST Images from the original note were not included. Gestational Diabetes - Video To view the video go to this web address: [email or web address] Or, scan this QR code with your smart phone [employer]. * Pt Handout (on AVS) - Shannan Pruitt CRNP - 06/05/2023 4:50 PM EST Images from the original note were not included. 21443 Gestational Diabetes: Exercise Exercise can help you keep your blood sugar in a normal range. That?s because your body uses more blood sugar when you exercise. Diabetes in can often be managed with careful nutrition and exercise alone. Then you may not need medicine to control your blood sugar. Exercise regularly Your healthcare provider may want you to exercise each day. The best time depends on when your blood sugar is highest. Exercising may also help ease some common symptoms of . These include bloating, constipation, and backaches. Ask about exercise at your first care visit. Your provider will work with you to make an exercise plan that fits your needs. Here are some tips: Aim to exercise for 30 to 60 minutes a day. Do this at moderate intensity. This means you're moving enough to raise your heart rate and start sweating. But you can still talk normally. Try breaking up daily exercise into 2 or 3 sessions. For example, take a 15- minute walk after each meal. Exercise with a friend or your partner. This may help you stick to your exercise plan. Go at a comfortable pace. Don?t tire yourself out. Exercise safely Ask your provider about exercise safety for you and your baby. Walking, swimming, and low-impact orwater aerobics are often the safest things to do. Other safety tips include: Don't do activities where you jump, turn, twist, stop or start quickly. Don't lift heavy weights. Don't exercise on your back after the first trimester. This can put too much pressure on an important vein. It can limit blood flow to the baby. If you do yoga or Pilates, find a class designed for . Use a sports bra to support your breasts. You may also want to use a belly support belt later inpregnancy. Don't get overheated. Don't do hot yoga or hot Pilates. Don't raise your heart rate to a level that makes it hard to talk. Drink plenty of water. If you use insulin, carry a carbohydrate snack with you. If you walk or do low-impact aerobics, wear sturdy shoes. If you haven?t eaten in 2 or more hours, have a light snack before exercising. Don't do contact sports that put you at risk of being hit in the belly. These include boxing, ice hockey, soccer, and basketball. Don't go skydiving or scuba diving. Don't do things that may cause a serious fall. These include horseback riding, gymnastics, and off-road cycling. Use a stationary bike. It's a safer choice than a standard bike. It will stop you from getting off balance with your growing belly. When it's not safe to exercise It's not advised to exercise when if you have any of these health conditions: Some types of heart and lung diseases with twins or more, and at risk for labor labor of your water has broken (ruptured membranes) Placenta previa later than 26 weeks of Preeclampsia or high blood pressure due to Severe anemia Cervical insufficiency or cerclage When to call your healthcare provider Call your provider right away or go to the emergency room (ER) if you have any of these: Belly pain Shortness of breath before starting exercise Vaginal bleeding Dizziness or feeling faint Chest pain Headache Decreased movement contractions Muscle weakness Calf pain or swelling Fluid leaking from the vagina Last Reviewed Date: 05/16/[id number] [employer]. All rights reserved. This information is not intended as a substitute for professional medical care. Always follow your healthcare professional's instructions. * Assessment & Plan Note - Shannan Pruitt CRNP - 06/05/2023 4:46 PM EST Associated Problem(s): Gestational diabetes mellitus (GDM), antepartum CONSIDERATIONS: Reviewed etiology and risks associated with gestational diabetes mellitus (GDM), including risks topregnancy, fetus, and maternal progression to Type 2 [...] Recommend nutrition consult with RDN (Registered Dietitian [place]). Lifestyle changes are also indicated including optimizing gestational weight gain and physical activity of 30 minutes per day, if not otherwise contraindicated in . Insulin is preferred if medications are indicated to optimize euglycemia. Metformin (preferred overglyburide) may also be used in some circumstances. [...] with 75-gram glucose load 6-8 weeks . documented in this encounter Plan of Treatment Upcoming Encounters Date Type Department Care Team (Late st Contact Info) Description 06/17/2023 11:30 AM EST Office Visit Gynecology/Obstetrics [address] [place] [address] Zhanna Noble CRNP [address] [address] 06/20/2023 8:00 AM EST Office Visit Professor Of Business Administration Obstetrics Maternal Medicine, [place] [address] [place] [address] [place] [address] [place] [address] 06/20/2023 8:00 AM EST Imaging [facility], [place] [address] [place] [address] 07/01/2023 11:30 AM EDT Office Visit Gynecology/Obstetrics [address] [place] [address] Zhanna Noble CRNP [address] [place] [address] 07/15/2023 11:30 AM EDT Office Visit Gynecology/Obstetrics [address] [place] [address] Zhanna Noble CRNP [address] [place] [address] 07/16/2023 8:30 AM EDT Telemedicine Psychiatry, [place] [address] [place] [address] Bam Doe CRNP [address] [place] [address] 07/18/2023 8:00 AM EDT Office Visit Professor Of Business Administration Obstetrics Maternal Medicine, [place] [address] [place] [address] Naseem Rmairez MD [address] [place] [address] 07/18/2023 8:00 AM EDT Imaging [facility], [place] [address] [place] [address] Scheduled Referrals Name Type Priority Associated Diagnoses Orde r Schedule REMOTE PATIENT MONITORING REFERRAL Referral Within 3 days (urgent) Diet controlled gestational diabetes mellitus (GDM), antepartum Ordered: 06/05/2023 Health Maintenance Due Date Last Done Comments [...] high risk in third trimester Unspecified high-risk with 27 completed weeks gestation documented in this encounter
--- OUTSIDE RECORDS SUMMARY | 2023-08-11 19:36 | External Medical Summary | Summary of Care ---
Author Name Unknown Organization [facility] Address [address] [place] [address] Phone [phone] Care Team Providers Care Marketing Communications Leader Name Role Phone Unavailable Primary Care Provider Unavailabl e Reason for Visit * Reason Comments Outpatient Testing Encounter Details Date Type Department Care Team (Late st Contact Info) Description 06/03/2023 8:10 AM EST Laboratory Laboratory [address] [place] [phone] [address] [place] [address] Encounter for supervision of normal first in second trimester; [employer] Other*[id number] Allergies Active Allergy Reactions Criticality Noted Date [...] money to get more. Never true 01/15/2023 Sharon Depression Scale Answer Date Recorded Sharon Depression Scale Total 4 01/29/2023 The thought [...] 06/03/2023 9:45 AM EST Office Visit Gynecology/Obstetrics [address] [place] [address] Zhanna Noble CRNP [address] [place] [address] Arrived 06/20/2023 8:00 AM EST Office Visit Continuous Improvement Coordinator Obstetrics Maternal Medicine, [address] [address] Micheline Rose, [address] [address] 06/20/2023 8:00 AM EST Imaging Radiology [facility], [address] [address] 07/16/2023 8:30 AM EDT Telemedicine Psychiatry, [address] [address] Bam Doe, [address] [phone] 07/18/2023 8:00 AM EDT Office Visit Continuous Improvement Coordinator Obstetrics Maternal Medicine, [address] [address] Bam Wilson, [place] [address] 07/18/2023 8:00 AM EDT Imaging Radiology [address] [address] Pending Results Name Type Priority Associated Diagnoses [...] MYCODE INITIAL ADULT Lab Routine [employer] Other*[id number] 06/03/2023 8:08 AM EST MYCODE INITIAL ADULT-PINK Lab Routine [employer] Other*[id number] 06/03/2023 8:08 AM EST MYCODE SST1 Lab Routine [employer] Other*[id number] 06/03/2023 8:08 AM EST MYCODE SST2 Lab Routine [employer] Other*[id number] 06/03/2023 8:08 AM EST Scheduled Orders Name Type Priority Associated Diagnoses Orde r Schedule 100-G GESTATIONAL GLUCOSE, 2 HOUR Lab Routine Encounter for supervision of normal first in second trimester Ordered: 06/03/2023 Health Maintenance Due Date Last Done Comments [...] trimester Supervision of normal first [employer] Other*[id number] documented in this encounter
--- OUTSIDE RECORDS SUMMARY | 2023-08-11 19:36 | External Medical Summary | Summary of Care ---
Author Name Unknown Organization [facility] Address [address] [place] [address] Phone [phone] Care Team Providers Care Football Pad Repairer Name Role Phone Unavailable Primary Care Provider Unavailabl e Reason for Referral * Evaluate & Treat - Unlimited Visits (Within 10 days (routine)) - Pending Review Specialty Diagnoses / Procedures Referred By Dwight whitt Referred To Contact Airline Pilot Flight Instructor / Nutrition Services Diagnoses Gestational diabetes mellitus (GDM), antepartum, gestational diabetes method of control unspecified Backer, RAULITO Samuel [address] [place] [address] Referral ID Status Reason Start Date Expiration Date Visits Requested Visits Authorized [id number] Pending Review Specialty Services Required 06/04/[phone] Question Answer Is the patient ? Yes Referral Priority Within 10 days (routine) Where should this appointment be scheduled? Lilian Comments This referral is for Diabetes Self-Management Training (DSMT) by a recognized [place] Diabetes Association (ADA) clinical document improvement educator: Nurse (RN), Registered Dietitian Box Estimator (RDN), and/or Diabetes Medical Nutrition Therapy (MNT) Management (dietitian only). Diabetes educators are responsible for assessing the participant's diabetes education needs, and providing diabetes self-management training in accordance with the standards set by the ADA for DSMT. Any adjustment in diabetes therapy will be made within the guidelines of standards of practice and [facility] approved policies and procedures. I understand that the clinical document improvement educator will keep me informed. Areas of Education: Pathophysiology Nutrition Physical Activity Medications Monitoring Acute Complications Chronic Complications Psychosocial Management Promote Health/Behavior Change Participant will be offered 1:1 education training if there is a lack of classes available within 2 months. Providers can also order 1:1 training if indicated for participant for the following reasons: 1:1 Training for Insulin Initiation Participant Inappropriate for Class Setting By my electronic signature, I understand that my patient will be offered the comprehensive ADA content area above unless deemed not appropriate of I specify otherwise here: * Evaluate & Treat - Unlimited Visits (Within 10 days (routine)) - Pending Review Specialty Diagnoses / Procedures Referred By Dwight whitt Referred To Contact Obstetrics/Gynecology / Maternal Medicine Diagnoses Gestational diabetes mellitus (GDM), antepartum, gestational diabetes method of control unspecified Maddi Rice CRNP [address] [place] [address] Referral ID Status Reason Start Date Expiration Date Visits Requested Visits Authorized [id number] Pending Review Specialty Services Required 06/04/[phone] Question Answer Referral Priority Within 10 days (routine) Has the patient had a viability scan? Yes Date performed 01/29/2023 Location performed Radiology Reason for referral Diabetes Diabetes type Gestational Where should this appointment be scheduled? [facility] Comments /Para: LMP: Patient's last menstrual period was 11/25/2022 (exact date). Patient is . CLAUDINE: 09/01/2023, by Last Menstrual Period Pre-Gravid BMI: 33.61 Reason for Visit * Reason Onset Date Comments Test Results 06/04/2023 Encounter Details Date Type Department Care Team (Late st Contact Info) Description 06/04/2023 Telephone Gynecology/Obstetrics [facility] [address] [place] [address] Maddi Rice CRNP [address] [place] [address] Test Results Allergies Active Allergy Reactions Criticality Noted Date Comments Tetanus Toxoid 03/22/2009 Leg swelling documented as of this encounter (statuses as of 06/04/2023) Medications Medication Sig Dispensed Refills Start Date [...] the morning. 30 Tablet 3 06/04/2023 Active ThinkSmartTouch Verio Flex System w/Device KitIndications:Gestati onal diabetes [...] as of this encounter (statuses as of 06/04/2023) Active Problems Problem Noted Date Diagnosed Date Gestational diabetes mellitus (GDM), antepartum 06/04/2023 Antepartum anemia complicating 024 Overview: Rx iron [...] of uterine fibroids in . Precautions reviewed. High-risk 01/29/2023 Obesity affecting 01/29/2023 Overview: Pre gravid [...] as of this encounter (statuses as of 06/04/2023) Resolved Problems Problem Noted Date Diagnosed Date Resolved Date Supervision of high risk pre gnancy in first trimester 02/11/2023 06/04/2023 with 11 completed weeks gestation 02/11/2023 04/10/2023 documented as of this encounter (statuses as of 06/04/2023) Social History Tobacco Use Types Packs/Day Years [...] money to get more. Never true 01/15/2023 Darrow Depression Scale Answer Date Recorded Darrow Depression Scale Total 4 01/29/2023 The thought [...] Telephone Encounter - Brianda Dempsey LPN - 06/04/2023 8:40 AM EST Spoke with patient on the phone and went over everything. She will begin testing. I sent MyG as a reference for her if needed. * Telephone Encounter - Maddi Rice CRNP - 06/04/2023 8:01 AM EST +anemia, sending rx for iron with vit C and vit B12. Take at least 1 hr apart from vitaminand dairy products. Can use colace if she develops constipation. Her 3 hr glucose test diagnoses GDM. Will need to start checking blood sugars 4x/day - 8-10 overnight fast, with AM fasting sugar <95 and 1 hr after first bite of each meal, goal <140. Sending testing supplies to pharmacy, and MFM referral as they will provide more education and manage her blood sugar readings. If she is comfortable using the glucometer, can start checking sugars now. One Touch website has instructional videos. If not, can wait until MFM appt. RAULITO Yung documented in this encounter Plan of Treatment Upcoming Encounters Date Type Department Care Team (Late st Contact Info) Description 06/17/2023 11:30 AM EST Office Visit Gynecology/Obstetrics [address] [place] [address] Zhanna Noble CRNP [address] [facility] [place] [address] 06/20/2023 8:00 AM EST Office Visit Senior Manufacturing Engineer Obstetrics Maternal Medicine, [place] [address] [place] [address] Micheline Rose, [address] [place], [place] [phone] 06/20/2023 8:00 AM EST Imaging Radiology [address] [address] 07/01/2023 11:30 AM EDT Office Visit Gynecology/Obstetrics [address] [place] [address] Zhanna Noble CRNP [address] [place] [facility] [address] 07/15/2023 11:30 AM EDT Office Visit Gynecology/Obstetrics [address] [place] [address] Zhanna Noble CRNP [address] [place] [address] 07/16/2023 8:30 AM EDT Telemedicine Psychiatry, [address] [address] Bam Doe CRNP [facility] [place] [address] 07/18/2023 8:00 AM EDT Office Visit Senior Manufacturing Engineer Obstetrics Maternal Medicine, [address] [address] Naseem Ramirez MD [facility] [place] [address] 07/18/2023 8:00 AM EDT Imaging Radiology [place] [address] [place] [address] Scheduled Orders Name Type Priority Associated Diagnoses Orde r Schedule MFM US MATERNAL 1ST FETUS Medical Imaging Routine Gestational diabetes mellitus (GDM), antepartum, gestational diabetes method of control unspecified Other specified related conditions, unspecified trimester Expected: 06/04/2023, Expires: 07/02/2024 Scheduled Referrals Name Type Priority Associated Diagnoses Orde r Schedule MATERNAL MEDICINE REFERRAL OP Referral Within 10 days (routine) Gestational diabetes mellitus (GDM), antepartum, gestational diabetes method of control unspecified Ordered: 06/04/2023 DIABETES MANAGEMENT EDUCATION (ADA) REFERRAL Referral Within [...] Visit Diagnoses Diagnosis Gestational diabetes mellitus (GDM), antepartum, gestational diabetes method of control unspecified- Primary Antepartum anemia complicating Anemia, antepartum Other specified related conditions, unspecified trimester documented in this encounter
--- OUTSIDE RECORDS SUMMARY | 2023-08-11 19:36 | External Medical Summary ---
Author Name Unknown Address Unknown Organization K01:[facility] [place] [address] [place] [address] Laboratory Report Ordering Provider Test Date Status LATANYA ARCHIBALD 07/01/2023 11:40:39 Final Observation Date Value Abnormality Reference (Units ) Status WBC, Total 07/01/2023 11:40:39 9.70 4.00-10.80 (K/uL) Final RBC 07/01/2023 11:40:39 3.87 3.85-5.15 (M/uL) Final Hemoglobin 07/01/2023 11:40:39 11.8 Below low normal 12.0-15.3 (g/dL) Final HCT 07/01/2023 11:40:39 35.2 Below low normal 36.0-45.2 (%) Final MCV 07/01/2023 11:40:39 91.0 81.5-97.5 (fL) Final MCH 07/01/2023 11:40:39 30.5 27.0-34.0 (pg) Final MCHC 07/01/2023 11:40:39 33.5 32.0-36.0 (g/dL) Final RDW 07/01/2023 11:40:39 15.2 11.5-15.5 (%) Final Platelets 07/01/2023 11:40:39 304 140-400 (K/uL) Final MPV 07/01/2023 11:40:39 9.4 6.6-11.1 (fL) Final Nucleated erythrocytes/100 leukocytes [Ratio] in Blood by Automated count 07/01/2023 11:40:39 0 <=0 (/100 WBCs) Final Performing Location [facility] [place] [address] [place] [address]
--- OUTSIDE RECORDS SUMMARY | 2023-08-11 19:36 | External Medical Summary | Summary of Care ---
Author Name Unknown Organization [facility] Address [address] [place] [address] Phone [phone] Care Team Providers Care Professional Nurse Name Role Phone Unavailable Primary Care Provider Unavailabl e Reason for Visit * Reason Comments Outpatient Testing Encounter Details Date Type Department Care Team (Late st Contact Info) Description 06/03/2023 8:10 AM EST Laboratory Laboratory [address] [place] [phone] [address] [place] [address] Encounter for supervision of normal first in second trimester; [employer] Other*[id number] Allergies Active Allergy Reactions Criticality Noted Date [...] money to get more. Never true 01/15/2023 [place] Depression Scale Answer Date Recorded [place] Depression Scale Total 4 01/29/2023 The thought [...] 06/17/2023 11:30 AM EST Office Visit Gynecology/Obstetrics [address] [place] [address] Zhanna Noble CRNP [address] [place] [address] 06/20/2023 8:00 AM EST Office Visit Maintenance Technician Obstetrics Maternal Medicine, [address] [address] Micheline Rose, [address] [address] 06/20/2023 8:00 AM EST Imaging Radiology [facility], [address] [address] 07/16/2023 8:30 AM EDT Telemedicine Psychiatry, [address] [address] Bam Doe, [place] [address] [place] [phone] 07/18/2023 8:00 AM EDT Office Visit Maintenance Technician Obstetrics Maternal Medicine, [address] [address] Bam Wilson, [place] [address] 07/18/2023 8:00 AM EDT Imaging Radiology [address] [address] Pending Results Name Type Priority Associated Diagnoses [...] MYCODE INITIAL ADULT Lab Routine [employer] Other*[id number] 06/03/2023 8:08 AM EST MYCODE INITIAL ADULT-PINK Lab Routine [employer] Other*[id number] 06/03/2023 8:08 AM EST MYCODE SST1 Lab Routine [employer] Other*[id number] 06/03/2023 8:08 AM EST MYCODE SST2 Lab Routine [employer] Other*[id number] 06/03/2023 8:08 AM EST 100-G GESTATIONAL GLUCOSE, 2 HOUR Lab Routine Encounter for supervision of normal first in second trimester 06/03/2023 10:08 AM EST Scheduled Orders Name Type Priority Associated Diagnoses Orde r Schedule 100-G GESTATIONAL GLUCOSE, 3 HOUR Lab Routine [...] trimester Supervision of normal first [employer] Other*[id number] documented in this encounter
--- OUTSIDE RECORDS SUMMARY | 2023-08-11 19:36 | External Medical Summary | Summary of Care ---
Author Name Unknown Organization [facility] Address [address] [place] [address] Phone [phone] Care Team Providers Care Autism Tutor Name Role Phone Unavailable Primary Care Provider Unavailabl e Reason for Visit * Reason Comments Return Visit Encounter Details Date Type Department Care Team (Late st Contact Info) Description 07/15/2023 11:30 AM EDT Office Visit Gynecology/Obstetric s [address] [place] [address] Zhanna Noble CRNP [address] [place] [address] Supervision of high risk in third trimester*; Uterine fibroid in ; Obesity affecting , antepartum, unspecified obesity type; Anxiety during ; Diet controlled gestational diabetes mellitus (GDM), antepartum; Antepartum anemia complicating Allergies Active Allergy Reactions Criticality Noted Date Comments Tetanus Toxoid 03/22/2009 Leg swelling documented as of this encounter (statuses as of 07/15/2023) Medications Medication Sig Dispensed Refills Start Date [...] the morning. 30 Tablet 3 06/04/2023 Active [employer] Sprout Verio Flex System w/Device KitIndications:Gestat ional diabetes mellitus (GDM), antepartum, gestational diabetes method of control unspecified Use to test blood sugars 4 times daily (fasting, 1 hour after breakfast, lunch, and dinner) 1 Kit 0 06/04/2023 Active [employer] In Vitro Strip (Glucose Blood)Indications:Ges tational diabetes mellitus (GDM), antepartum, gestational diabetes method of control unspecified Use to test blood sugars 4 times daily (fasting, 1 hour after breakfast, lunch, and dinner) 125 Strip 6 06/04/2023 Active [employer]ova Delica Lancets 30GIndications:Gestat ional diabetes mellitus (GDM), antepartum, gestational diabetes method of control unspecified Use to test blood sugars 4 times daily (fasting, 1 hour after breakfast, lunch, and dinner) 200 Each 6 06/04/2023 Active Breast Pump Dispense double electric breast pump. Dx:Z39.1 1 Each 0 07/15/2023 Active documented as of this encounter (statuses as of 07/15/2023) Active Problems Problem Noted Date Diagnosed Date [...] 11:06 AM 100-G GESTATIONAL GLUCOSE, FASTING - TANAER 109 (H) 06/03/2023 08:03 AM She reports her home blood glucose as following: DATE Fasting 1 hr after Breakfast 1 hr after Lunch 1 hr after Dinner 06/04/23 Picked up meter 06/05/2023 95 Fasted 12 hours 132 87 x 06/05/23: MFM ADAPT consult complete. Enrolled in [facility]. Instructions provided to report blood [...] reviewed. Blood sugars stable; continue diet control. Last Assessment & Plan: Working [...] Precautions reviewed. Supervision of high risk in [facility] 01/29/2023 Obesity affecting 01/29/2023 Overview: [...] as of this encounter (statuses as of 07/15/2023) Resolved Problems Problem Noted Date Diagnosed Date Resolved Date Supervision of high risk pre gnancy in first trimester 02/11/2023 06/04/2023 with 11 completed weeks gestation 02/11/2023 04/10/2023 documented as of this encounter (statuses as of 07/15/2023) Social History Tobacco Use Types Packs/Day Years [...] money to get more. Never true 01/15/2023 Wells Depression Scale Answer Date Recorded Wells Depression Scale Total 4 01/29/2023 The thought [...] Sign Reading Time Taken Comments Blood Pressure 106/62 07/15/2023 11:52 AM EDT Pulse - - Temperature - - Respiratory Rate - - Oxygen Saturation - - Inhaled Oxygen Concentration - - Weight 91.6 kg (202 lb) 07/15/2023 11:52 AM EDT Height 165.1 cm (5' 5") 07/15/2023 11:52 AM EDT Body Mass Index 33.61 07/15/2023 11:52 AM EDT documented in this encounter Progress Notes * Zhanna Noble CRNP - 07/15/2023 11:52 AM EDT 33w1d Has had 2 episodes of dizziness in the past week, last Saturday and again today. Has been adequately hydrated, blood sugar was good this morning when fasting and after breakfast. Occurring standing andsitting. Discussed blood pressure and blood sugar, but also possibility of inner ear issue. Having nausea with PNV and with iron. Discussed trial of Slow Fe and gummy vitamin instead. Baby is active. No contractions, no bleeding or LOF. Has MFM appt later this week. RAULITO Tariq documented in this encounter Nursing Notes * Teressa Mcdonald LPN - 07/15/2023 11:23 AM EDT 33w1d Has been getting dizziness past week Nausea with documented in this encounter Plan of Treatment Upcoming Encounters Date Type Department Care Team (Late st Contact Info) Description 07/16/2023 8:30 AM EDT Telemedicine Psychiatry, [place] [address] [place] [address] Bam Doe CRNP [address] [place] [address] 07/18/2023 8:00 AM EDT Office Visit Culvert Installer Obstetrics Maternal Medicine, [place] [address] [place] [address] Naseem Ramirez MD [address] [place] [address] 07/18/2023 8:00 AM EDT Imaging Rad[facility] [place] [address] [place] [address] 07/19/2023 8:30 AM EDT Telemedicine Nutrition Services, [place] [address] [facility] [address]nd Floor [address] [place] [address] Desire Multani, [place] [address] [place] [address] 08/05/2023 10:15 AM EDT Office Visit Gynecology/Obstetrics [facility] [address] [place] [address] Zhanna Noble CRNP [address] [place] [address] 08/12/2023 10:15 AM EDT [facility] [address] [place] [address] Zhanna Noble CRNP [address] [place] [address] 08/19/2023 11:30 AM EDT Office Visit Gynecology/Obstetrics [address] [place] [address] Zhanna Noble CRNP [address] [place] [address] Health Maintenance Due Date Last Done Comments [...]
--- OUTSIDE RECORDS SUMMARY | 2023-08-11 19:37 | External Medical Summary ---
Author Name Unknown Address Unknown Organization K01:[facility] [place] [address] [facility] [address] Laboratory Report Ordering Provider Test Date Status ROSALVA FU 06/03/2023 08:03:03 Final Observation Date Value Abnormality Reference (Units ) Status Treponema pallidum Ab [Presence] in Serum by Immunoassay 06/03/2023 08:03:03 Nonreactive Nonreactive Final No serologic evidence of syp hilis. No additional testing clinicially indicated at this time. Consider repeat testing in 2-4 weeks if acute or primary syphilis is suspected. Performing Location [facility] [place] [address] [place] [address]
--- OUTSIDE RECORDS SUMMARY | 2023-08-11 19:37 | External Medical Summary ---
Author Name Unknown Address Unknown Organization K01:[facility] [place] [address] [place] [address] Laboratory Report Ordering Provider Test Date Status ROSALVA FU 06/03/2023 08:03:03 Final Observation Date Value Abnormality Reference (Units ) Status Folic Acid 06/03/2023 08:03:03 18.3 >4.5 (ng/ mL) Final Performing Location LABORATORY [facility] - [address] [place] [address]
--- OUTSIDE RECORDS SUMMARY | 2023-08-11 19:37 | External Medical Summary ---
Author Name Unknown Address Unknown Organization [id number]:LABORATORY [facility] [place] - [address] [place] [address] Laboratory Report Ordering Provider Test Date Status TOMAS ARRIOLA 06/03/2023 08:08:14 Final Observation Date Value Abnormality Reference (Units ) Status MYCODE SPECIMEN-SST 06/03/2023 08:08:14 Freezing of extracted DNA, whole blood and/or serum. Final Performing Location LAB[facility]ATORY [facility] - [address] [place] [address]
--- OUTSIDE RECORDS SUMMARY | 2023-08-11 19:37 | External Medical Summary ---
Author Name Unknown Address Unknown Organization [id number]:[place] [place] [address] [place] [address] Laboratory Report Ordering Provider Test Date Status ROSALVA FU 06/03/2023 11:06:37 Final Observation Date Value Abnormality Reference (Units ) Status Glucose [Mass/volume] in Serum or Plasma --3 hours post dose glucose 06/03/2023 11:06:37 150 Above high normal 70-139 (mg/dL) Final Performing Location [facility] [place] [address] [place] [address]
--- OUTSIDE RECORDS SUMMARY | 2023-08-11 19:37 | External Medical Summary | Summary of Care ---
Author Name Unknown Organization [facility] Address [address] [place] [address] Phone [phone] Care Team Providers Care Cash Clerk Name Role Phone Unavailable Primary Care Provider Unavailabl e Reason for Visit * Reason Comments Outpatient Testing Encounter Details Date Type Department Care Team (Late st Contact Info) Description 06/03/2023 8:10 AM EST Laboratory Laboratory [address] [place] [phone] [address] [place] [address] Encounter for supervision of normal first in second trimester; [employer] Other*[id number] Allergies Active Allergy Reactions Criticality Noted Date [...] money to get more. Never true 01/15/[address] Depression Scale Answer Date Recorded [address] Depression Scale Total 4 01/29/2023 The thought [...] 06/03/2023 9:45 AM EST Office Visit Gynecology/Obstetrics [address] [place] [address] Zhanna Noble CRNP [address] [place] [address] Arrived 06/20/2023 8:00 AM EST Office Visit Stratigrapher Obstetrics Maternal Medicine, [address] [address] Micheline Rose, [address] [address] 06/20/2023 8:00 AM EST Imaging Radiology [facility], [address] [address] 07/16/2023 8:30 AM EDT Telemedicine Psychiatry, [address] [address] Bam Doe, [address] [phone] 07/18/2023 8:00 AM EDT Office Visit Stratigrapher Obstetrics Maternal Medicine, [address] [address] Bam Wilson, [facility] [address] 07/18/2023 8:00 AM EDT Imaging Radiology [address] [address] Pending Results Name Type Priority Associated Diagnoses [...] in second trimester 06/03/2023 8:03 AM EST MYCODE INITIAL ADULT Lab Routine [employer] Other*[id number] 06/03/2023 8:08 AM EST MYCODE INITIAL ADULT-PINK Lab Routine [employer] Other*[id number] 06/03/2023 8:08 AM EST MYCODE SST1 Lab Routine [employer] Other*[id number] 06/03/2023 8:08 AM EST MYCODE SST2 Lab Routine [employer] Other*[id number] 06/03/2023 8:08 AM EST Scheduled Orders Name Type Priority Associated Diagnoses Orde r Schedule 100-G GESTATIONAL GLUCOSE, 1 HOUR Lab Routine [...] trimester Supervision of normal first [employer] Other*[id number] documented in this encounter
--- OUTSIDE RECORDS SUMMARY | 2023-08-11 19:37 | External Medical Summary ---
Author Name Unknown Address Unknown Organization [id number]:LABORATORY [facility] [place] [facility] - [address] [place] [address] Laboratory Report Ordering Provider Test Date Status XIMENA BEGUM 04/11/2023 08:33:23 Final Observation Date Value Abnormality Reference (Units ) Status Glucose [Mass/volume] in Serum or Plasma --1 hour post dose glucose 04/11/2023 08:33:23 170 70-179 (mg/dL) Final Performing Location LABORATORY [facility] [place] [facility] 0 - [address] [place] [address]
--- OUTSIDE RECORDS SUMMARY | 2023-08-11 19:37 | External Medical Summary | Summary of Care ---
Author Name Unknown Organization [facility] Address [address] [place] [address] Phone [phone] Care Team Providers Care Disability Examiner Name Role Phone Unavailable Primary Care Provider Unavailabl e Reason for Visit * Reason Onset Date Comments Abnormal Test Results 03/08/2023 Encounter Details Date Type Department Care Team (Late st Contact Info) Description 03/08/2023 Telephone Gynecology/Obstetrics [facility] [address] [place] [address] Park Martinez MD [address] [place] [address] Abnormal Test Results Allergies Active Allergy Reactions Criticality Noted Date Comments Tetanus Toxoid 03/22/2009 Leg swelling documented as of this encounter (statuses as of 03/19/2023) Medications Medication Sig Dispensed Refills Start Date End Date Status Sertraline HCl 100 MG Oral Tablet (Zoloft)Indications:G AD (generalized anxiety disorder) Take 1 Tablet by mouth in the morning. In the morning.. 30 Tablet 3 01/17/2023 Active Vitamin 27-0.8 MG Oral Tablet Take by mouth. 0 Active documented as of this encounter (statuses as of 03/19/2023) Active Problems Problem Noted Date Diagnosed Date Supervision of high risk in first trim pauline 02/11/2023 with 11 completed weeks gestation 01/15 Uterine fibroid in 01/29/2023 Overview: Uterine fibroids [...] see above discussion. Last Assessment & Plan: CONSIDERATIONS: We discussed the finding of uterine fibroids (also referred to as leiomyoma). Women with fibroids may have higher rates of delivery, placenta previa, placenta abruption, abnormal labor, delivery, and malpresentation at term. Fibroids may cause uterine irritability or labor/delivery especially if fibroid is degenerating. RECOMMENDATIONS: If a degenerating fibroid is causing pain prior to 32 weeks gestation and has not responded to acetaminophen or a short course of narcotics, a 48-hour course of NSAID's (i.e. Ibuprofen) may be used. If patient has any single fibroid with diameter greater than 5cm, multiple fibroids, or fibroids with retroplacental or fundal locations, we recommend Maternal Medicine ultrasound for anatomy at 19-20 weeks and then for growth at 28-30 weeks. For patients with previous myomectomy that entered the uterine cavity or involved extensive fibroid removal, we recommend delivery via at 37w0d to 38w6d gestation. , normal first 01/29/2023 Obesity affecting 01/29/2023 Overview: Pre gravid BMI: 33.6 Class 1 obesity 1 hour GTT ordered but not yet completed by patient Baseline Preeclampsia Labs Lab Results Component Value Date/Time PLATELET AUTO - [facility] 308 01/29/2023 10:28 AM Last Assessment & Plan: DISCUSSION: 1. Discussed obstetrical risks associated with class I obesity (pre- BMI of 30 to 34.9) to include increased incidence of the following: spontaneous miscarriage, recurrent loss, diabetes in , hypertension/pre-eclampsia, IUFD, macrosomia and shoulder dystocia, hemorrhage or infection, venous thromboembolism, increased length of labor and delivery, complications with anesthesia, as well as a possibly increased risk of congenital anomalies (neural tube defects, cardiovascular, orofacial). 2. Reviewed that the accuracy of ultrasound at diagnosing anomalies is significantly decreased for women with an increased BMI. RECOMMENDATIONS: 1. Recommend restricting weight gain during to 11-20 pounds. Consider referral for nutrition consult. 2. Recommend evaluation for signs and symptoms (snoring, excessive daytime sleepiness witnessed apnea or unexplained hypoxia) of obstructive sleep apnea. If any of these are present, referral to Sleep Medicine specialist for further evaluation should be considered. 3. Recommend performing gestational diabetes mellitus screen at first visit and repeat again at 26-28 weeks if early screen is normal. 4. Recommend Maternal- Medicine ultrasound for anatomy at 20 weeks. Anxiety during 01/29/2023 Overview: Anxiety Follows with [...] as of this encounter (statuses as of 03/19/2023) Social History Tobacco Use Types Packs/Day Years [...] money to get more. Never true 01/15/2023 [place] Depression Scale Answer Date Recorded [place] Depression Scale Total 4 01/29/2023 The thought [...] encounter Miscellaneous Notes * Telephone Encounter - Teressa Mcdonald LPN - 03/08/2023 10:29 AM EST Called pt lm to return call. Triage number provided * Telephone Encounter - Park Martinez MD - 03/08/2023 8:42 AM EST Please notify Patient that she has an elevated 1 hr GTT. Patient will need a 3 hr GTT. Thanks, Dr. Martinez documented in this encounter Plan of Treatment Upcoming Encounters Date Type Department Care Team (Late st Contact Info) Description 03/28/2023 1:30 PM EST Office Visit Proc Tech Obstetrics Maternal Medicine, [place] [address] [place] [address] Bam Wilson, [address] [place] [address] 03/28/2023 1:30 PM EST Imaging Rad[facility], [place] [address] [place] [address] 04/03/2023 3:15 PM EST Office Visit Gynecology/Obst[facility]s [facility] [address] [place] [address] Zhanna Noble CRNP [address] [place] [address] 04/16/2023 8:30 AM EST Telemedicine Psychiatry, [place] [address] [place] [address] Bam Doe, [facility] [address] [place] [phone] Scheduled Orders Name Type Priority Associated Diagnoses Orde r Schedule GESTATIONAL GLUCOSE TOLERANCE, 3 HOUR Lab Routine Elevated glucose tolerance test Expected: 03/08/2023, Expires: 03/08/2024 Health Maintenance Due Date Last Done Comments Hepatitis B (1 of 3 - 3-dose series) 1988 Depression Screening 2000 COVID-19 Vaccine (2022-2 4 season) 2022 12/05/2020, [...] as of this encounter Visit Diagnoses Diagnosis Elevated glucose tolerance test- Primary Impaired glucose tolerance test documented in this encounter
--- OUTSIDE RECORDS SUMMARY | 2023-08-11 19:37 | External Medical Summary | Summary of Care ---
Author Name Unknown Organization [facility] Address [address] [place] [address] Phone [phone] Care Team Providers Care Char Filter Operator Helper Name Role Phone Unavailable Primary Care Provider Unavailabl e Reason for Visit * Reason Comments Return Visit Encounter Details Date Type Department Care Team (Late st Contact Info) Description 05/28/2023 8:45 AM EST Office Visit Gynecology/Obstetric [facility] [address] [place] [address] Butch De Anda MD [address] [place] [address] Uterine fibroid in *; Encounter for supervision of normal first in third trimester; Obesity affecting , antepartum, unspecified obesity type; Anxiety during Allergies Active Allergy Reactions Criticality Noted Date Comments Tetanus Toxoid 03/22/2009 Leg swelling documented as of this encounter (statuses as of 05/28/2023) Medications Medication Sig Dispensed Refills Start Date End Date Status Vitamin 27-0.8 MG Oral Tablet Take by mouth. 0 Active Sertraline HCl 100 MG Oral Tablet (Zoloft)Indications:G AD (generalized anxiety disorder) Take 1 Tablet by mouth in the morning. In the morning.. 30 Tablet 3 04/16/2023 Active documented as of this encounter (statuses as of 05/28/2023) Active Problems Problem Noted Date Diagnosed Date [...] Results Component Value Date/Time PLATELET AUTO - [facility] 308 01/29/2023 10:28 AM Last Assessment & [...] as of this encounter (statuses as of 05/28/2023) Resolved Problems Problem Noted Date Diagnosed Date Resolved Date with 11 completed weeks gestation 02/11/2023 04/10/2023 documented as of this encounter (statuses as of 05/28/2023) Social History Tobacco Use Types Packs/Day Years [...] money to get more. Never true 01/15/2023 [place] Depression Scale Answer Date Recorded [place] Depression Scale Total 4 01/29/2023 The thought [...] Sign Reading Time Taken Comments Blood Pressure 114/62 05/28/2023 8:47 AM EST Pulse - - Temperature - - Respiratory Rate - - Oxygen Saturation - - Inhaled Oxygen Concentration - - Weight 90.3 kg (199 lb) 05/28/2023 8:47 AM EST Height 165.1 cm (5' 5") 05/28/2023 8:47 AM EST Body Mass Index 33.12 05/28/2023 8:47 AM EST documented in this encounter Progress Notes * Butch De Anda MD - 05/28/2023 9:07 AM EST 1st time seeing pt Doing well fibroid uterus complicating Discussed delivery here and [facility] Discussed PTl and PTD as well Pt seeing MFM * Teressa Mcdonald LPN - 05/28/2023 8:47 AM EST 26w2d Discuss fibroids documented in this encounter Plan of Treatment Upcoming Encounters Date Type Department Care Team (Late st Contact Info) Description 06/03/2023 8:10 AM EST Laboratory Laboratory [address] [place] [phone] [address] [place] [address] 06/03/2023 9:45 AM EST Office Visit Gynecology/Obstetrics [address] [place] [address] [facility] [place] [address] 06/20/2023 8:00 AM EST Office Visit Consumer Affairs Director Obstetrics Maternal Medicine, [place] [address] [place] [address] Micheline Rose [address] [place] [address] 06/20/2023 8:00 AM EST Imaging Rad[facility], [place] [address] [place] [address] 07/16/2023 8:30 AM EDT Telemedicine Psychiatry, [place] [address] [place] [address] Bam Doe, WATER PUMP INSTALLER [address] [place] [phone] 07/18/2023 8:00 AM EDT Office Visit Consumer Affairs Director Obstetrics Maternal Medicine, [place] [address] [place] [address] Bam Wilson, [address] [place] [address] 07/18/2023 8:00 AM EDT Imaging Radiology [facility], [address] [address] Health Maintenance Due Date Last Done Comments [...]
--- OUTSIDE RECORDS SUMMARY | 2023-08-11 19:37 | External Medical Summary ---
Author Name Unknown Address Unknown Organization K01:LABORATORY [facility] [place] - [facility] [address] [place] [address] Laboratory Report Ordering Provider Test Date Status TANKROSALVA 06/03/2023 08:03:03 Final Observation Date Value Abnormality Reference (Units ) Status Creatinine 06/03/2023 08:03:03 0.6 0.5-1.0 (mg/dL) Final Glomerular filtration rate/1.73 sq M.predicted [Volume Rate/Area] in Serum, Plasma or Blood by Creatinine-based formula (CKD-EPI) 06/03/2023 08:03:03 >90 >=60 (mL/min) Final eGFR is calculated based on the CKD-EPI 2020 equation Performing Location LABORATORY [facility] [place] - [facility] [address] [place] [address]
--- OUTSIDE RECORDS SUMMARY | 2023-08-11 19:37 | External Medical Summary ---
Author Name Unknown Address Unknown Organization K01:LABORATORY [facility] - [address] [place] [address] Laboratory Report Ordering Provider Test Date Status TANK,ROSALVA 06/03/2023 08:03:03 Final Observation Date Value Abnormality Reference (Units ) Status TSH 06/03/2023 08:03:03 3.90 0.27-4.20 (uIU/mL) Final Performing Location LAB[facility] - [address] [place] [address]
--- OUTSIDE RECORDS SUMMARY | 2023-08-11 19:37 | External Medical Summary | Summary of Care ---
Author Name Unknown Organization [facility] Address [address] [place] [address] Phone [phone] Care Team Providers Care Managing Member Name Role Phone Unavailable Primary Care Provider Unavailabl e Reason for Visit * Reason Comments Ultrasound Encounter Details Date Type Department Care Team (Late st Contact Info) Description 04/10/2023 7:45 AM EST Office Visit Tool Maker Obstetrics Maternal Medicine, [place] [address] [place], [place] [phone] Bam Wilson, [address] [place], [place] [phone] Uterine fibroid in *; Obesity affecting in second trimester, unspecified obesity type; Anxiety during ; 19 weeks gestation of ; Other specified related conditions, unspecified trimester Allergies Active Allergy Reactions Criticality Noted Date Comments Tetanus Toxoid 03/22/2009 Leg swelling documented as of this encounter (statuses as of 04/10/2023) Medications Medication Sig Dispensed Refills Start Date End Date Status Sertraline HCl 100 MG Oral Tablet (Zoloft)Indications:G AD (generalized anxiety disorder) Take 1 Tablet by mouth in the morning. In the morning.. 30 Tablet 3 01/17/2023 Active Vitamin 27-0.8 MG Oral Tablet Take by mouth. 0 Active documented as of this encounter (statuses as of 04/10/2023) Active Problems Problem Noted Date Diagnosed Date [...] as of this encounter (statuses as of 04/10/2023) Resolved Problems Problem Noted Date Diagnosed Date Resolved Date with 11 completed weeks gestation 02/11/2023 04/10/2023 documented as of this encounter (statuses as of 04/10/2023) Social History Tobacco Use Types Packs/Day Years [...] money to get more. Never true 01/15/2023 [place] Depression Scale Answer Date Recorded [place] Depression Scale Total 4 01/29/2023 The thought [...] file Not on file Not on file Travel History Travel Start Travel End Kenn 03/14/2023 03/23/2023 Olga 03/08/2023 03/14/2023 documented as of this encounter Progress Notes * Bam Wilson, - 04/10/2023 9:35 AM EST MATERNAL MEDICINE VISIT Stella Concha is at 19w3d who presents to [facility] for an ultrasound and follow-up of her high risk . PHYSICAL EXAM: General: pleasant, alert and oriented, no acute distress She is being seen today by Maternal- Medicine for the following reasons: Problem List Items Addressed This Visit Uterine fibroid in - Primary We reviewed some possible complications of uterine fibroids in . Precautions reviewed. Obesity affecting She presents for a anatomy survey secondary [...] identify all anomalies, but it is reassuring thatno anomalies were seen today. Anxiety during Other Visit Diagnoses 19 weeks gestation of We reviewed today's ultrasound findings. (For full report, please refer to ultrasound report provided separately). Ms. Kern's questions were answered to her satisfaction. RECOMMENDATIONS: Recommend follow up ultrasound with [facility] in 9 weeks for growth secondary to uterine fibroids. Thank you for allowing us to participate in the care of this patient. Please call with any questions. Bam iWlson DO 04/10/2023 9:35 AM documented in this encounter Miscellaneous Notes * Assessment & Plan Note - Bam Wilson DO - 04/10/2023 9:35 AM EST Associated Problem(s): Uterine fibroid in We reviewed some possible complications of uterine fibroids in . Precautions reviewed. * Assessment & Plan Note - Bam Wilson DO - 04/10/2023 9:35 AM EST Associated Problem(s): Obesity affecting She presents for a anatomy survey secondary [...] identify all anomalies, but it is reassuring thatno anomalies were seen today. documented in this encounter Plan of Treatment Upcoming Encounters Date Type Department Care Team (Late st Contact Info) Description 04/11/2023 7:40 AM EST [facility] [address] [place] [phone] Maria Elena Melendez 132 [facility] [place] [address] 04/16/2023 8:30 AM EST Telemedicine Psychiatry, [address] [address] Bam Doe CRNP [address] [place] [address] 04/24/2023 3:00 PM EST Office Visit Gynecology/Obstetrics [place] [address] [place] [address] Zhanna Noble CRNP 132 [facility] [place] [address] 06/20/2023 8:00 AM EST Office Visit Tool Maker Obstetrics Maternal Medicine, [address] [address] Bam Wilson, [address] [place] [address] 06/20/2023 8:00 AM EST Imaging Radiology [place] [address] [place] [address] 07/18/2023 8:00 AM EDT Office Visit Tool Maker Obstetrics Maternal Medicine, [place] [address] [place] [address] Bam Wilson, [address] [place] [address] 07/18/2023 8:00 AM EDT Imaging Radiology [place] [address] [place] [address] Scheduled Orders Name Type Priority Associated Diagnoses Orde r Schedule MFM US PREG FOLLOW UP EACH FETUS Medical Imaging Routine Uterine fibroid in Obesity affecting in second trimester, unspecified obesity type Other specified related conditions, unspecified trimester 9 Occurrences starting 04/10/2023 until 10/10/2023 Health Maintenance Due Date Last Done Comments [...] to episode of care in Obesity affecting in second trimester, unspecified obesity type Anxiety during 19 weeks gestation of state, incidental Other specified related conditions, unspecified trimester documented in this encounter
--- OUTSIDE RECORDS SUMMARY | 2023-08-11 19:37 | External Medical Summary | Summary of Care ---
Author Name Unknown Organization [facility] Address [address] [place] [address] Phone [phone] Care Team Providers Care Tacking Machine Operator Name Role Phone Unavailable Primary Care Provider Unavailabl e Reason for Visit * Reason Onset Date Comments Abnormal Test Results 03/08/2023 Encounter Details Date Type Department Care Team (Late st Contact Info) Description 03/08/2023 Telephone Gynecology/Obstetrics [facility] [address] [place] [address] Park Martinez MD [address] [facility] [place] [address] Abnormal Test Results Allergies Active Allergy Reactions Criticality Noted Date Comments Tetanus Toxoid 03/22/2009 Leg swelling documented as of this encounter (statuses as of 03/26/2023) Medications Medication Sig Dispensed Refills Start Date End Date Status Sertraline HCl 100 MG Oral Tablet (Zoloft)Indications:G AD (generalized anxiety disorder) Take 1 Tablet by mouth in the morning. In the morning.. 30 Tablet 3 01/17/2023 Active Vitamin 27-0.8 MG Oral Tablet Take by mouth. 0 Active documented as of this encounter (statuses as of 03/26/2023) Active Problems Problem Noted Date Diagnosed Date [...] as of this encounter (statuses as of 03/26/2023) Social History Tobacco Use Types Packs/Day Years [...] money to get more. Never true 01/15/2023 [place] Depression Scale Answer Date Recorded [place] Depression Scale Total 4 01/29/2023 The thought [...] Telephone Encounter - Teressa Mcdonald LPN - 03/26/2023 8:52 AM EST Myg sent * Telephone Encounter - Teressa Mcdonald LPN [...] Care Team (Late st Contact Info) Description 04/03/2023 3:15 PM EST Office Visit Gynecology/Obstetrics [place] [address] [place] [address] Zhanna Noble CRNP [address] [place] [address] 04/10/2023 7:45 AM EST Office Visit Binder Stripper Machine Obstetrics Maternal Medicine, [address] [place] [address] Naseem Ramirez MD [address] [place] [address] 04/10/2023 7:45 AM EST Imaging Rad[facility] [place] [address] [place] [address] 04/16/2023 8:30 AM EST Telemedicine Psychiatry, [place] [address] [place], [place] [phone] Bam Doe CRNP [address] [place] [phone] Scheduled Orders Name Type Priority Associated Diagnoses [...]
--- OUTSIDE RECORDS SUMMARY | 2023-08-11 19:37 | External Medical Summary | Summary of Care ---
Author Name Unknown Organization [facility] Address [address] [place] [address] Phone [phone] Care Team Providers Care Shirt Sewer Name Role Phone Unavailable Primary Care Provider Unavailabl e Reason for Visit * Reason Comments Outpatient Testing Encounter Details Date Type Department Care Team (Late st Contact Info) Description 03/06/2023 2:00 PM EST Laboratory Laboratory, [facility] [address] [place] [phone] [facility] [address] [place] [address] Obesity affecting in first trimester, unspecified obesity type Allergies Active Allergy Reactions Criticality Noted Date Comments Tetanus Toxoid 03/22/2009 Leg swelling documented as of this encounter (statuses as of 03/06/2023) Medications Medication Sig Dispensed Refills Start Date End Date Status Sertraline HCl 100 MG Oral Tablet (Zoloft)Indications:G AD (generalized anxiety disorder) Take 1 Tablet by mouth in the morning. In the morning.. 30 Tablet 3 01/17/2023 Active Vitamin 27-0.8 MG Oral Tablet Take by mouth. 0 Active documented as of this encounter (statuses as of 03/06/2023) Active Problems Problem Noted Date Diagnosed Date [...] as of this encounter (statuses as of 03/06/2023) Social History Tobacco Use Types Packs/Day Years [...] money to get more. Never true 01/15/2023 [place] Depression Scale Answer Date Recorded [place] Depression Scale Total 4 01/29/2023 The thought [...] Description 03/28/2023 1:30 PM EST Office Visit Substance Abuse Therapist Obstetrics Maternal Medicine, [place] [address] [place] [address] Bam Wilson DO [address] [place] [address] 03/28/2023 1:30 PM EST Imaging Radiology [facility], [place] [address] [place] [address] 04/03/2023 3:15 PM EST Office Visit Gynecology/Obstetrics [facility] [address] [place] [address] Zhanna Noble CRNP [address] [place] [facility] [place] [address] 04/16/2023 8:30 AM EST Telemedicine Psychiatry, [place] [address] [place] [address] Bam Doe CRNP [address] [place] [address] Pending Results Name Type Priority Associated Diagnoses Date /Time 50-G GESTATIONAL GLUCOSE, 1 HOUR Lab Routine Obesity affecting in first trimester, unspecified obesity type 03/06/2023 2:51 PM EST Health Maintenance Due Date Last Done Comments Hepatitis B (1 of 3 - 3-dose series) 1988 Depression Screening 2000 COVID-19 Vaccine (3 - 2023-2 4 season) 2022 12/05/2020, 08/31/2020 Influenza Vaccine [...] encounter Visit Diagnoses Diagnosis Obesity affecting in first trimester, unspecified obesity type documented in this encounter
--- OUTSIDE RECORDS SUMMARY | 2023-08-11 19:37 | External Medical Summary ---
Author Name Unknown Address Unknown Organization K01:[facility] - [address] [place] [address] Laboratory Report Ordering Provider Test Date Status ROSALVA FU 06/03/2023 08:03:03 Final Observation Date Value Abnormality Reference (Units ) Status Ferritin 06/03/2023 08:03:03 38 13-150 (ng /mL) Final Performing Location [facility] - [address] [place] [address]
--- OUTSIDE RECORDS SUMMARY | 2023-08-11 19:37 | External Medical Summary ---
Author Name Unknown Address Unknown Organization [id number]:[facility] [place] [facility] - [address] [place] [address] Laboratory Report Ordering Provider Test Date Status XIMENA BEGUM 04/11/2023 07:36:23 Final Based on ACOG guideline, ges tational diabetes mellitus is diagnosed when any of the following is met:
Fasting is greater than or equal to 95 mg/dL
1 hour is greater than or equal to 180 mg/dL
2 hour is greater than or equal to 155 mg/dL
3 hour is greater than or equal to 140 mg/dL Observation Date Value Abnormality Reference (Units ) Status Glucose, fasting 04/11/2023 07:36:23 90 70- 94 (mg/dL) Final Performing Location LAB[facility]ATORY [facility] [place] [facility] - [address] [place] [address]
--- OUTSIDE RECORDS SUMMARY | 2023-08-11 19:37 | External Medical Summary ---
Author Name Unknown Address Unknown Organization [id number]:[facility] [place] [address] [place] [address] Laboratory Report Ordering Provider Test Date Status ROSALVA FU 06/03/2023 09:08:59 Final Observation Date Value Abnormality Reference (Units ) Status Glucose [Mass/volume] in Serum or Plasma --1 hour post dose glucose 06/03/2023 09:08:59 226 Above high normal 70-179 (mg/dL) Final Performing Location [facility] [place] [address] [place] [address]
--- OUTSIDE RECORDS SUMMARY | 2023-08-11 19:37 | External Medical Summary | Summary of Care ---
Author Name Unknown Organization [facility] Address [address] [place] [address] Phone [phone] Care Team Providers Care Setter Off Name Role Phone Unavailable Primary Care Provider Unavailabl e Reason for Visit * Reason Comments Return Visit Encounter Details Date Type Department Care Team (Late st Contact Info) Description 05/24/2023 8:45 AM EST Office Visit Gynecology/Obstetric [facility] [address] [place] [address] Maddi Rice CRNP [address] [place] [address] Encounter for supervision of normal first in second trimester*; Uterine fibroid in ; Obesity affecting in second trimester, unspecified obesity type; Anxiety during Allergies Active Allergy Reactions Criticality Noted Date Comments Tetanus Toxoid 03/22/2009 Leg swelling documented as of this encounter (statuses as of 05/24/2023) Medications Medication Sig Dispensed Refills Start Date End Date Status Vitamin 27-0.8 MG Oral Tablet Take by mouth. 0 Active Sertraline HCl 100 MG Oral Tablet (Zoloft)Indications:G AD (generalized anxiety disorder) Take 1 Tablet by mouth in the morning. In the morning.. 30 Tablet 3 04/16/2023 Active documented as of this encounter (statuses as of 05/24/2023) Active Problems Problem Noted Date Diagnosed Date [...] as of this encounter (statuses as of 05/24/2023) Resolved Problems Problem Noted Date Diagnosed Date Resolved Date with 11 completed weeks gestation 02/11/2023 04/10/2023 documented as of this encounter (statuses as of 05/24/2023) Social History Tobacco Use Types Packs/Day Years [...] money to get more. Never true 01/15/2023 [place] Depression Scale Answer Date Recorded [place] Depression Scale Total 4 01/29/2023 The thought [...] Sign Reading Time Taken Comments Blood Pressure 102/62 05/24/2023 8:43 AM EST Pulse - - Temperature - - Respiratory Rate - - Oxygen Saturation - - Inhaled Oxygen Concentration - - Weight 90.3 kg (199 lb) 05/24/2023 8:43 AM EST Height - - Body Mass Index 33.12 04/26/2023 2:08 PM EST documented in this encounter Progress Notes * Maddi Rice CRNP - 05/24/2023 8:44 AM EST 25w5d + movement. No bleeding/ctx. Labs next visit, with 3 hr GTT. Has an appt w/physician next week to discuss fibroids. MFM follow up is scheduled. 2 week return for RAULITO Franks * Sandra Horne LPN - 05/24/2023 8:44 AM EST 25w5d Denies vaginal bleeding/rom + movement Meeting with Dr De Anda next week to discuss fibroid documented in this encounter Plan of Treatment Upcoming Encounters Date Type Department Care Team (Late st Contact Info) Description 05/28/2023 8:45 AM EST Office Visit Gynecology/Obstetrics [facility] [address] [place] [address] Butch De Anda MD [address] [place] [address] 06/03/2023 8:10 AM EST Laboratory Laboratory [address] [place] [address] [facility] [address] [place] [address] 06/03/2023 9:45 AM EST Office Visit Gynecology/Obstetrics [address] [place] [address] Zhanna Noble CRNP [address] [place] [address] 06/20/2023 8:00 AM EST Office Visit Compliance Lead Obstetrics Maternal Medicine, [address] [address] iMcheline Rose, [facility] [place] [address] 06/20/2023 8:00 AM EST Imaging Radiology [facility], [place] [address] [place] [address] 07/16/2023 8:30 AM EDT Telemedicine Psychiatry, [address] [id number] Bam Doe, [place] [address] [place] [phone] 07/18/2023 8:00 AM EDT Office Visit Compliance Lead Obstetrics [facility]aternal [facility], [address] [address] Bam Wilson, [address] [place] [address] 07/18/2023 8:00 AM EDT Imaging Radiology [address] [id number] Scheduled Orders Name Type Priority Associated Diagnoses Orde r Schedule GESTATIONAL GLUCOSE TOLERANCE, 3 HOUR Lab Routine Encounter for supervision of normal first in second trimester Expected: 06/07/2023 (Approximate), Expires: 05/24/2024 SYPHILIS ANTIBODY SCREEN WITH REFLEX TO RPR Lab Routine Encounter for supervision of normal first in second trimester Expected: 06/07/2023 (Approximate), Expires: 05/24/2024 CBC WITH WBC DIFFERENTIAL AND ANEMIA REFLEX WORKUP Lab Routine Encounter for supervision of normal first in second trimester Expected: 06/07/2023 (Approximate), Expires: 05/24/2024 Health Maintenance Due Date Last Done Comments [...] for supervision of normal first in second trimester- Primary Supervision of normal first Uterine fibroid in Tumors of body of uterus, unspecified as to episode of care in Obesity affecting in second trimester, unspecified obesity type Anxiety during documented in this encounter
--- OUTSIDE RECORDS SUMMARY | 2023-08-11 19:37 | External Medical Summary | Summary of Care ---
Author Name Unknown Organization [facility] Address [address] [place] [address] Phone [phone] Care Team Providers Care Corn Detasseler Machine Operator Name Role Phone Unavailable Primary Care Provider Unavailabl e Reason for Visit * Reason Comments Outpatient Testing Encounter Details Date Type Department Care Team (Late st Contact Info) Description 06/03/2023 8:10 AM EST Laboratory Laboratory [address] [place] [phone] [address] [place] [address] Encounter for supervision of normal first in second trimester; [employer] Other*[id number] Allergies Active Allergy Reactions Criticality Noted Date [...] money to get more. Never true 01/15/2023 [place] Depression Scale Answer Date Recorded [place] Depression Scale Total 4 01/29/2023 The thought [...] 06/03/2023 9:45 AM EST Office Visit Gynecology/Obstetrics [address] [place] [address] Zhanna Noble CRNP [address] [place] [address] Arrived 06/20/2023 8:00 AM EST Office Visit Lunchroom Worker Obstetrics Maternal Medicine, [address] [address] Micheline Rose, [address] [address] 06/20/2023 8:00 AM EST Imaging Radiology [facility], [address] [address] 07/16/2023 8:30 AM EDT Telemedicine Psychiatry, [address] [address] Bma Doe, [address] [phone] 07/18/2023 8:00 AM EDT Office Visit Lunchroom Worker Obstetrics Maternal Medicine, [address] [address] Bam Wilson, [facility] [place] [address] 07/18/2023 8:00 AM EDT Imaging Radiology [address] [address] Pending Results Name Type Priority Associated Diagnoses [...] MYCODE INITIAL ADULT Lab Routine [employer] Other*[id number] 06/03/2023 8:08 AM EST MYCODE INITIAL ADULT-PINK Lab Routine [employer] Other*[id number] 06/03/2023 8:08 AM EST MYCODE SST1 Lab Routine [employer] Other*[id number] 06/03/2023 8:08 AM EST MYCODE SST2 Lab Routine [employer] Other*[id number] 06/03/2023 8:08 AM EST Scheduled Orders Name [...] trimester Supervision of normal first [employer] Other*[id number] documented in this encounter
--- OUTSIDE RECORDS SUMMARY | 2023-08-11 19:37 | External Medical Summary ---
Author Name Unknown Address Unknown Organization K01:LAB[facility]ATORY [facility] [place] - [address] [place] [address] Laboratory Report Ordering Provider Test Date Status TANKBACKER 06/03/2023 08:03:03 Final Observation Date Value Abnormality Reference (Units ) Status WBC, Total 06/03/2023 08:03:03 11.63 Above high normal 4 .00-10.80 (K/uL) Final RBC 06/03/2023 08:03:03 3.85 3.85-5.15 (M/uL) Final Hemoglobin 06/03/2023 08:03:03 11.7 Below low normal 12 .0-15.3 (g/dL) Final Anemia reflex testing trigge rs on a HGB < 12.0 for Females and HGB < 13.0 for Males in accordance with the WHO Anemia Guidelines
Anemia reflex testing triggers on a HGB < 12.0 for Females and HGB < 13.0 for Males in accordance with the WHO Anemia Guidelines HCT 06/03/2023 08:03:03 35.0 Below low normal 36. 0-45.2 (%) Final MCV 06/03/2023 08:03:03 90.9 81.5-97.5 (fL) Final MCH 06/03/2023 08:03:03 30.4 27.0-34.0 (pg) Final MCHC 06/03/2023 08:03:03 33.4 32.0-36.0 (g/dL) Final RDW 06/03/2023 08:03:03 14.3 11.5-15.5 (%) Final Platelets 06/03/2023 08:03:03 334 140-400 (K /uL) Final MPV 06/03/2023 08:03:03 9.4 6.6-11.1 ( fL) Final Nucleated erythrocytes/100 leukocytes [Ratio] in Blood by Automated count 06/03/2023 08:03:03 0 <=0 (/100 WBCs) Final Performing Location LABORATORY [facility] [place] - [address] [facility] [address]
--- OUTSIDE RECORDS SUMMARY | 2023-08-11 19:37 | External Medical Summary ---
Author Name Unknown Address Unknown Organization K01:[facility] [place] - [address] [place] [address] Laboratory Report Ordering Provider Test Date Status ROSALVA FU 06/03/2023 08:03:03 Final Based on ACOG guideline, ges tational [...] Abnormality Reference (Units ) Status Glucose, fasting 06/03/2023 08:03:03 109 Above high no rmal 70-94 (mg/dL) Final Performing Location [facility] - [address] [place] [address]
--- OUTSIDE RECORDS SUMMARY | 2023-08-11 19:37 | External Medical Summary | Summary of Care ---
Author Name Unknown Organization [facility] Address [address] [place] [address] Phone [phone] Care Team Providers Care Bacon Stringer Name Role Phone Unavailable Primary Care Provider Unavailabl e Reason for Visit * Reason Onset Date Comments Abnormal Test Results 03/08/2023 Encounter Details Date Type Department Care Team (Late st Contact Info) Description 03/08/2023 Telephone Gynecology/Obstetrics [facility] [address] [place] [address] Park Martinez MD [address] [facility] [place] [address] Abnormal Test Results Allergies Active Allergy Reactions [...] money to get more. Never true 01/15/2023 [place] Depression Scale Answer Date Recorded [place] Depression Scale Total 4 01/29/2023 The thought [...] Encounter - Teressa Mcdonald LPN - 03/26/2023 3:32 PM EST Pt called back to schedule 3gtt. Please call pt and get her scheduled * Telephone Encounter - Teressa Mcdonald LPN [...] 04/03/2023 3:15 PM EST Office Visit Gynecology/Obstetrics [facility] [address] [place] [address] Zhanna Noble CRNP [address] [place] [address] 04/10/2023 7:45 AM EST Office Visit Holter Scanning Technician Obstetrics Maternal Medicine, [place] [address] [place] [address] Naseem Ramirez MD [address] [place] [address] 04/10/2023 7:45 AM EST Imaging Radiology [facility], [place] [address] [place] [address] 04/16/2023 8:30 AM EST Telemedicine Psychiatry, [place] [address] [place], [place] [phone] Bam Doe CRNP [address] [place] [address] Scheduled Orders Name Type Priority Associated Diagnoses Orde r Schedule GESTATIONAL GLUCOSE TOLERANCE, 3 HOUR Lab Routine Elevated glucose tolerance test Expected: 03/08/2023, Expires: 03/08/2024 Health Maintenance Due Date Last Done Comments Hepatitis B (1 of 3 - 3-dose series) 1988 Depression Screening 2000 COVID-19 Vaccine (3 - 2022-2 4 season) 2022 12/05/2020, 08/31/2020 [...]
--- OUTSIDE RECORDS SUMMARY | 2023-08-11 19:37 | External Medical Summary ---
Author Name Unknown Address Unknown Organization K01:LABORATORY [facility] [place] - [address] [place] [address] Laboratory Report Ordering Provider Test Date Status TOMAS ARRIOLA 06/03/2023 08:08:14 Final Observation Date Value Abnormality Reference (Units ) Status MYCODE SPECIMEN-SST 06/03/2023 08:08:14 Freezing of extracted DNA, whole blood and/or serum. Final Performing Location [facility] - [address] [place] [address]
--- OUTSIDE RECORDS SUMMARY | 2023-08-11 19:37 | External Medical Summary | Summary of Care ---
Author Name Unknown Organization [facility] Address [address] [place] [address] Phone [phone] Care Team Providers Care Floor Mechanic Name Role Phone Unavailable Primary Care Provider Unavailabl e Reason for Visit * Reason Onset Date Comments Abnormal Test Results 03/08/2023 Encounter Details Date Type Department Care Team (Late st Contact Info) Description 03/08/2023 Telephone Gynecology/Obstetrics [facility] [address] [place] [address] Park Martinez MD [address] [facility] [place] [address] Abnormal Test Results Allergies Active Allergy Reactions Criticality Noted Date Comments Tetanus Toxoid 03/22/2009 Leg swelling documented as of this encounter (statuses as of 03/27/2023) Medications Medication Sig Dispensed Refills Start Date End Date Status Sertraline HCl 100 MG Oral Tablet (Zoloft)Indications:G AD (generalized anxiety disorder) Take 1 Tablet by mouth in the morning. In the morning.. 30 Tablet 3 01/17/2023 Active Vitamin 27-0.8 MG Oral Tablet Take by mouth. 0 Active documented as of this encounter (statuses as of 03/27/2023) Active Problems Problem Noted Date Diagnosed Date [...] as of this encounter (statuses as of 03/27/2023) Social History Tobacco Use Types Packs/Day Years [...] money to get more. Never true 01/15/2023 [place] Depression Scale Answer Date Recorded [place] Depression Scale Total 4 01/29/2023 The thought [...] encounter Miscellaneous Notes * Telephone Encounter - Nichelle Hodge MED ASSIST - 03/27/2023 4:23 PM EST Appt scheduled, pt aware * Telephone Encounter - Teressa Mcdonald LPN [...] 04/03/2023 3:15 PM EST Office Visit Gynecology/Obstetrics [facility] [address] [place] [address] Zhanna Noble CRNP [address] [place] [address] 04/10/2023 7:45 AM EST Office Visit Master Welder Obstetrics Maternal Medicine, [place] [address] [place] [address] Naseem Ramirez MD [address] [place] [address] 04/10/2023 7:45 AM EST [facility] [place] [address] [place] [address] 04/11/2023 7:40 AM EST Laboratory Laboratory, [facility] [address] [place] [address] [facility] [address] [place] [address] 04/16/2023 8:30 AM EST Telemedicine Psychiatry, [place] [address] [place] [address] Bam Doe CRNP [address] [place] [phone] Scheduled Orders Name Type Priority Associated Diagnoses [...]
--- OUTSIDE RECORDS SUMMARY | 2023-08-11 19:37 | External Medical Summary | Summary of Care ---
Author Name Unknown Organization [facility] Address [address] [place] [address] Phone [phone] Care Team Providers Care Track Patrol Name Role Phone Unavailable Primary Care Provider Unavailabl e Reason for Visit * Reason Comments Return Visit Encounter Details Date Type Department Care Team (Late st Contact Info) Description 04/26/2023 2:15 PM EST Office Visit Gynecology/Obstetric s [facility] [address] [facility] [place] [address] Zhanna Noble CRNP [address] [facility] [address] Encounter for supervision of normal first in second trimester*; Obesity affecting , antepartum, unspecified obesity type; Uterine fibroid in ; Anxiety during Allergies Active Allergy Reactions Criticality Noted Date Comments Tetanus Toxoid 03/22/2009 Leg swelling documented as of this encounter (statuses as of 04/26/2023) Medications Medication Sig Dispensed Refills Start Date End Date Status Vitamin 27-0.8 MG Oral Tablet Take by mouth. 0 Active Sertraline HCl 100 MG Oral Tablet (Zoloft)Indications:G AD (generalized anxiety disorder) Take 1 Tablet by mouth in the morning. In the morning.. 30 Tablet 3 04/16/2023 Active documented as of this encounter (statuses as of 04/26/2023) Active Problems Problem Noted Date Diagnosed Date [...] as of this encounter (statuses as of 04/26/2023) Resolved Problems Problem Noted Date Diagnosed Date Resolved Date with 11 completed weeks gestation 02/11/2023 04/10/2023 documented as of this encounter (statuses as of 04/26/2023) Social History Tobacco Use Types Packs/Day Years [...] money to get more. Never true 01/15/2023 [place] Depression Scale Answer Date Recorded [place] Depression Scale Total 4 01/29/2023 The thought [...] Sign Reading Time Taken Comments Blood Pressure 120/68 04/26/2023 2:08 PM EST Pulse - - Temperature - - Respiratory Rate - - Oxygen Saturation - - Inhaled Oxygen Concentration - - Weight 94.8 kg (209 lb) 04/26/2023 2:08 PM EST Height 165.1 cm (5' 5") 04/26/2023 2:08 PM EST Body Mass Index 34.78 04/26/2023 2:08 PM EST documented in this encounter Progress Notes * Zhanna Noble CRNP - 04/26/2023 2:33 PM EST 21w5d Had COVID a few weeks ago, feeling fine now. Has a very large fundal fibroid, thinks this is causing some digestive issues-- feeling fullness and discomfort at times. Following with MFM for fibroid. +quickening. RAULITO Tariq * Teressa Mcdonald LPN - 04/26/2023 2:08 PM EST 21w5d documented in this encounter Nursing Notes * Teressa Mcdonald LPN - 04/26/2023 2:14 PM EST 21w5d Had covid a couple weeks ago Feeling better documented in this encounter Plan of Treatment Upcoming Encounters Date Type Department Care Team (Late st Contact Info) Description 05/24/2023 8:45 AM EST Office Visit Gynecology/Obstetrics [facility] [address] [address] Maddi Rice CRNP [address] [place] [address] 06/20/2023 8:00 AM EST Office Visit Account Manager Forest Service Obstetrics Maternal Medicine, [place] [address] [place] [address] Bam Wilson [address] [place] [address] 06/20/2023 8:00 AM EST Imaging Radiology [facility], [place] [address] [place] [address] 07/16/2023 8:30 AM EDT Telemedicine Psychiatry, [address] [address] Bam Doe, COMPLIANCE ATTORNEY [address] [place] [address] 07/18/2023 8:00 AM EDT Office Visit Account Manager Forest Service Obstetrics Maternal Medicine, [place] [address] [place] [address] Bam Wilson, [address] [place] [address] 07/18/2023 8:00 AM EDT Imaging Radiology [facility], [address] [address] Health Maintenance Due Date Last Done Comments [...] second trimester- Primary Supervision of normal first Obesity affecting , antepartum, unspecified obesity type Uterine fibroid in Tumors of body of uterus, unspecified as to episode of care in Anxiety during documented in this encounter
--- OUTSIDE RECORDS SUMMARY | 2023-08-11 19:37 | External Medical Summary ---
Author Name Unknown Address Unknown Organization K01:LAB[facility]ORY [facility] [place] - [address] [place] [address] Laboratory Report Ordering Provider Test Date Status TANKBACKER 06/03/2023 08:03:03 Final Observation Date Value Abnormality Reference (Units ) Status SYNC LEUKOCYTES IN BLOOD BY AUTOMATED COUNT 06/03/2023 08:03:03 11.63 Above high normal 4.00-10.80 (K/uL) Final Segs 06/03/2023 08:03:03 74.1 40.0-75.0 (%) Final Lymphs % 06/03/2023 08:03:03 16.4 Below low normal 18.0-42.0 (%) Final Monos 06/03/2023 08:03:03 5.2 1.0-11.0 (%) Final Eosinophils 06/03/2023 08:03:03 0.8 0.0-6.0 (%) Final Basos 06/03/2023 08:03:03 0.4 0.0-2.0 (%) Final Immature Granulocyte, Percent 06/03/2023 08:03:03 3.1 Above high normal 0.0-2.0 (%) Final Absolute Segs 06/03/2023 08:03:03 8.62 Above high normal 1.80-7.70 (K/uL) Final Lymphs, absolute 06/03/2023 08:03:03 1.91 1.00-4.80 (K/ul) Final Monos, Abs 06/03/2023 08:03:03 0.60 0.00-1.10 (K/uL) Final Eos, Abs 06/03/2023 08:03:03 0.09 0.00-0.70 (K/uL) Final Basos, Abs 06/03/2023 08:03:03 0.05 0.00-0.20 (K/uL) Final Immature Granulocytes, Number 06/03/2023 08:03:03 0.36 Above high normal 0.00-0.20 (K/uL) Final Performing Location LABORATORY [facility] [place] - [address] [place] [address]
--- OUTSIDE RECORDS SUMMARY | 2023-08-11 19:37 | External Medical Summary | Summary of Care ---
Author Name Unknown Organization [facility] Address [address] [place] [address] Phone [phone] Care Team Providers Care Scow Derrick Operator Name Role Phone Unavailable Primary Care Provider Unavailabl e Reason for Visit * Reason Onset Date Comments Appointment Canceled 03/21/2023 Encounter Details Date Type Department Care Team (Late st Contact Info) Description 03/21/2023 Telephone Media Consultant Obstetrics Maternal Medicine, [place] [address] [place] [address] [place], Nurse Media Consultant [facility] [address], [place] [id number] Appointment Canceled Allergies Active Allergy Reactions Criticality Noted Date Comments Tetanus Toxoid 03/22/2009 Leg swelling documented as of this encounter (statuses as of 03/21/2023) Medications Medication Sig Dispensed Refills Start Date End Date Status Sertraline HCl 100 MG Oral Tablet (Zoloft)Indications:G AD (generalized anxiety disorder) Take 1 Tablet by mouth in the morning. In the morning.. 30 Tablet 3 01/17/2023 Active Vitamin 27-0.8 MG Oral Tablet Take by mouth. 0 Active documented as of this encounter (statuses as of 03/21/2023) Active Problems Problem Noted Date Diagnosed Date [...] as of this encounter (statuses as of 03/21/2023) Social History Tobacco Use Types Packs/Day Years [...] money to get more. Never true 01/15/2023 [place] Depression Scale Answer Date Recorded [place] Depression Scale Total 4 01/29/2023 The thought [...] encounter Miscellaneous Notes * Telephone Encounter - Arcelia Colon OSA - 03/21/2023 12:12 PM EST Pt needs her anatomy rescheduled for any time about Apr 09 to Apr 19 because she will only be 17w 4dwhen she's scheduled -14. Left vm for pt to call us back documented in this encounter Plan of Treatment Upcoming Encounters Date Type Department Care Team (Late st Contact Info) Description 04/03/2023 3:15 PM EST Office Visit Gynecology/Obstetrics [facility] [address] [place] [facility] [address] [facility] [address] [facility] [address] 04/16/2023 8:30 AM EST Telemedicine Psychiatry, [place] [address] [place] [address] Bam Doe CRNP [address] [place] [phone] Health Maintenance Due Date Last Done Comments [...]
--- OUTSIDE RECORDS SUMMARY | 2023-08-11 19:37 | External Medical Summary ---
Author Name Unknown Address Unknown Organization [id number]:[place]ORY [facility] [place] [address] [place] [address] Laboratory Report Ordering Provider Test Date Status TANKBACKER 06/03/2023 08:03:03 Final Observation Date Value Abnormality Reference (Units ) Status Retic, % (auto) 06/03/2023 08:03:03 2.97 Above high normal 0.80-1.90 (%) Final Reticulocytes, Absolute 06/03/2023 08:03:03 115.2 Above high normal 31.3-100.1 (K/uL) Final Reticulocyte fraction, immature 06/03/2023 08:03:03 31.2 Above high normal 2.5-20.6 (%) Final Reticulocyte HGB 06/03/2023 08:03:03 33.2 29.7-37.4 (pg) Final Performing Location [facility] [address] [facility] [address]
--- OUTSIDE RECORDS SUMMARY | 2023-08-11 19:37 | External Medical Summary ---
Author Name Unknown Address Unknown Organization K0G:LABORATORY [facility] [place] [address] - [address] [place] [address] Laboratory Report Ordering Provider Test Date Status XIMENA BEGUM 04/11/2023 10:34:01 Final Observation Date Value Abnormality Reference (Units ) Status Glucose [Mass/volume] in Serum or Plasma --3 hours post dose glucose 04/11/2023 10:34:01 126 70-139 (mg/dL) Final Performing Location LABORATORY [facility] [place] [address] 0 - [address] [place] [address]
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
--- OUTSIDE RECORDS SUMMARY | 2023-08-11 19:37 | External Medical Summary ---
Author Name Unknown Address Unknown Organization K01:[facility]ATORY [facility] [place] [address] [place] [address] Laboratory Report Ordering Provider Test Date Status ROSALVA FU 06/03/2023 08:03:03 Final Observation Date Value Abnormality Reference (Units ) Status Vitamin B12 06/03/2023 08:03:03 215 Below low normal 2 32-1245 (pg/mL) Final Performing Location LABORATORY [facility] - [address] [place] [address]
--- OUTSIDE RECORDS SUMMARY | 2023-08-11 19:37 | External Medical Summary | Summary of Care ---
Author Name Unknown Organization [facility] Address [address] [place] [address] Phone [phone] Care Team Providers Care Clinical Application Specialist Name Role Phone Unavailable Primary Care Provider Unavailabl e Reason for Visit * Reason Comments Outpatient Testing Encounter Details Date Type Department Care Team (Late st Contact Info) Description 04/11/2023 7:40 AM EST Laboratory Laboratory, [facility] [address] [place] [phone] [facility] [address] [place] [address] Elevated glucose tolerance test Allergies Active Allergy Reactions Criticality Noted Date Comments Tetanus Toxoid 03/22/2009 Leg swelling documented as of this encounter (statuses as of 04/11/2023) Medications Medication Sig Dispensed Refills Start Date End Date Status Sertraline HCl 100 MG Oral Tablet (Zoloft)Indications:G AD (generalized anxiety disorder) Take 1 Tablet by mouth in the morning. In the morning.. 30 Tablet 3 01/17/2023 Active Vitamin 27-0.8 MG Oral Tablet Take by mouth. 0 Active documented as of this encounter (statuses as of 04/11/2023) Active Problems Problem Noted Date Diagnosed Date [...] as of this encounter (statuses as of 04/11/2023) Resolved Problems Problem Noted Date Diagnosed Date Resolved Date with 11 completed weeks gestation 02/11/2023 04/10/2023 documented as of this encounter (statuses as of 04/11/2023) Social History Tobacco Use Types Packs/Day Years [...] money to get more. Never true 01/15/2023 Hamilton Depression Scale Answer Date Recorded [place] Depression Scale Total 4 01/29/2023 The thought [...] 03/08/2023 03/14/2023 documented as of this encounter Plan of Treatment Upcoming Encounters Date Type Department Care Team (Late st Contact Info) Description 04/16/2023 8:30 AM EST [facility] Psychiatry, [place] [address] [place] [address] Bam Doe CRNP [address] [place] [facility] [place] [address] 04/24/2023 3:00 PM EST Office Visit [facility] [address] [place] [address] Zhanna Noble CRNP [address] [place] [address] 06/20/2023 8:00 AM EST Office Visit It Support Engineer Obstetrics Maternal Medicine, [place] [address] [place] [address] Bam Wilson, [address] [place] [address] 06/20/2023 8:00 AM EST Imaging Radiology [place] [address] [place] [address] 07/18/2023 8:00 AM EDT Office Visit It Support Engineer Obstetrics Maternal Medicine, [place] [address] [place] [address] Bam Wilson, [address] [place] [address] 07/18/2023 8:00 AM EDT Imaging Radiology [place] [address] [place] [address] Pending Results Name Type Priority Associated Diagnoses Date /Time GESTATIONAL GLUCOSE TOLERANCE, 3 HOUR Lab Routine Elevated glucose tolerance test 04/11/2023 7:36 AM EST 100-G GESTATIONAL GLUCOSE, 3 HOUR Lab Routine Elevated glucose tolerance test 04/11/2023 10:34 AM EST Health Maintenance Due Date Last [...] Not on filedocumented as of this encounter Procedures Procedure Name Priority Date/Time Associated Diagnosis Comments 100-G GESTATIONAL GLUCOSE, 2 HOUR Routine 04/11/2023 9:34 AM EST Elevated glucose tolerance test 100-G GESTATIONAL GLUCOSE, 1 HOUR Routine 04/11/2023 8:33 AM EST Elevated glucose tolerance test 100-G GESTATIONAL GLUCOSE, FASTING Routine 04/11/2023 7:36 AM EST Elevated glucose tolerance test documented in this encounter Results * 100-G GESTATIONAL GLUCOSE, 2 HOUR (04/11/2023 9:34 AM EST) 100-g Gestational Glucose, 2 Hour 152 70 - 154 mg/dL 04/11/2023 10:16 AM EST LAB[facility]ORY [place] [facility] Blood Venous blood specimen / Unknown Venipuncture / Unknown 04/11/2023 9:34 AM EST 04/11/2023 9:34 AM EST Park Martinez MD LAB BLOOD ORDERABL ES LABORATORY [place] [facility] [facility] [place] [address] * 100-G GESTATIONAL GLUCOSE, 1 HOUR (04/11/2023 8:33 AM EST) 100-g Gestational Glucose, 1 Hour 170 70 - 179 mg/dL 04/11/2023 9:23 AM EST LAB[facility]ATORY [place] [facility] Blood Venous blood specimen / Unknown Venipuncture / Unknown 04/11/2023 8:33 AM EST 04/11/2023 8:33 AM EST Park Martinez MD LAB BLOOD ORDERABL ES LABORATORY [place] [facility] [place] [address] * 100-G GESTATIONAL GLUCOSE, FASTING (04/11/2023 7:36 AM EST) [facility] 100-g Gestational Glucose, Fasting 90 70 - 94 mg/dL 04/11/2023 9:08 AM EST LAB[facility]ATORY [place] [facility] Blood Venous blood specimen / Unknown Venipuncture / Unknown 04/11/2023 7:36 AM EST 04/11/2023 7:36 AM EST Narrative LABORATORY [place] [facility] - 04/11/2023 9:08 AM EST Based on ACOG guideline, gestational diabetes mellitus is diagnosed when any of the following is met: Fasting is greater than or equal to 95 mg/dL 1 hour is greater than or equal to 180 mg/dL 2 hour is greater than or equal to 155 mg/dL 3 hour is greater than or equal to 140 mg/dL Park Martinez MD LAB BLOOD ORDERABL ES Performing Organization Address City/[facility]/ZIP Co de Phone Number LABORATORY [place] [facility] [place] [address] documented in this encounter Visit Diagnoses Diagnosis Elevated glucose tolerance test Impaired glucose tolerance test documented in this encounter
--- NOTE | 2023-08-11 19:38 | History & Physical Report ---
Date of Service August 11, 2023 Assessment & Plan (1) 37 weeks gestation of : Plan: Admit, routine labs Epidural as patient request Anticipate spontaneous vaginal delivery (2) Uterine fibroid during , antepartum: Plan: 2 fibroids are in the lower uterine segment and may inhibit vaginal delivery will plan to proceed with vaginal delivery if patient continues to make progress If patient is for a will call in Backup due to the difficulty of fibroids in the lower uterine segment with delivery (3) Obesity affecting in third trimester: (4) GDM, class A1: Plan: Glucose checks q. hourly, insulin drip if needed (5) Anemia affecting first : Plan: Admission H&H pending (6) Elevated BP without diagnosis of hypertension: Plan: Noted blood pressure 160/90 due to patient's discomfort during contractions, PIH labs pending History of Present Illness Chief Complaint: CTX Primary Care Provider: NO PCP Patient is a pleasant 32-year-old G1, P0 at 37 weeks and 0 days dated by last menstrual period consistent with 8-week ultrasound who presents for spontaneous rupture of membranes and contractions starting at 6 PM. Was planning deliver at [facility] due to baby being breech and large uterine fibroids. Upon presentation patient was noted to be 7 to 8 cm dilated, and reji every 1 to 2 minutes has been complicated by uterine fibroid in in which there are 2 present in the lower uterine segment measuring 6.4 x 5.4 x 5.6; 3.6 x 2.5 x 3.3, and fundus 10.2 x 7.5 x 12.8. She has been getting growth ultrasounds with MFM throughout her . Growth has been appropriate has also been complicated by class I obesity, diet-controlled GDM, and antepartum anemia. 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 History See record Review of Systems All systems reviewed & are unremarkable except as noted in HPI & below Physical Exam Constitutional: WD/WN, vitals as above Respiratory: normal respiratory effort, lungs clear to auscultation Cardiovascular: RRR, no murmur, no edema Gastrointestinal (Abdomen): normal bowel sounds, soft, nontender, no hepatosplenomegaly Fundus enlarged and protruding due to large fundal uterine fibroid, ultrasound confirms cephalic presentation Genitourinary: Cervix: 8/90/-1, sutures felt on exam Results & Data Vital Signs (Past 12 Hours) Vital Signs Pulse Pulse Ox 08/11/23 19:35 99 H 98 Monitoring External Monitor heart tracing: Baseline 130, moderate variability, variable decelerations, category 2 Tocodynamometer Contractions every 1 to 2-minute (3) Obesity affecting in third trimester Obesity type affecting : other obesity due to excess calories Qualified Code(s): O99.213 - Obesity complicating , third trimester; E66.09 - Other obesity due to excess calories
--- OUTSIDE RECORDS SUMMARY | 2023-08-11 19:38 | External Medical Summary ---
Author Name Unknown Address Unknown Organization K0G:LABORATORY [facility] [place] [address] - [address] [place] [address] Laboratory Report Ordering Provider Test Date Status ROSALVA FU 03/06/2023 14:51:31 Final Observation Date Value Abnormality Reference (Units ) Status Glucose [Moles/volume] in Serum or Plasma --1 hour post 50 g glucose PO 03/06/2023 14:51:31 196 Above high normal 70-129 (mg/dL) Final Performing Location LABORATORY [facility] [place] [address] - [address] [place] [address]
--- OUTSIDE RECORDS SUMMARY | 2023-08-11 19:38 | External Medical Summary | Summary of Care ---
Author Name Unknown Organization [facility] Address [address] [place] [address] Phone [phone] Care Team Providers Care Store Clerk Checker Name Role Phone Unavailable Primary Care Provider Unavailabl e Encounter Details Date Type Department Care Team (Late st Contact Info) Description 03/01/2023 Telephone Gynecology/Obstetrics [facility] [address] [facility] [place] [id number] Butch De Anda MD [address] [place] [address] Allergies Active Allergy Reactions Criticality Noted Date Comments Tetanus Toxoid 03/22/2009 Leg swelling documented as of this encounter (statuses as of 03/01/2023) Medications Medication Sig Dispensed Refills Start Date End Date Status Sertraline HCl 100 MG Oral Tablet (Zoloft)Indications:G AD (generalized anxiety disorder) Take 1 Tablet by mouth in the morning. In the morning.. 30 Tablet 3 01/17/2023 Active Vitamin 27-0.8 MG Oral Tablet Take by mouth. 0 Active documented as of this encounter (statuses as of 03/01/2023) Active Problems Problem Noted Date Diagnosed Date [...] as of this encounter (statuses as of 03/01/2023) Social History Tobacco Use Types Packs/Day Years [...] money to get more. Never true 01/15/2023 [place] Depression Scale Answer Date Recorded [place] Depression Scale Total 4 01/29/2023 The thought [...] encounter Miscellaneous Notes * Telephone Encounter - Sandra Horne LPN - 03/01/2023 9:49 AM EST Pt calling in stating she has been having discomfort around the upper rib area after eating. She has tried OTC medications and gas ex but it does not seem to be helping. Advised pt to contact PCP to be evaluated to ensure not something else causing that discomfort if OTC medications are not helping. Pt verbalized understanding. documented in this encounter Plan of Treatment Upcoming Encounters Date Type Department Care Team (Late st Contact Info) Description 03/06/2023 2:00 PM EST [facility], [facility] [address] [facility] [id number] [facility] [address] 03/06/2023 2:15 PM EST Office Visit Gynecology[facility]stetric[facility] [address] [facility] [address] Zhanna Noble CRNP [address] [facility] [address] 03/28/2023 1:30 PM EST Office Visit Galvanometer Assembler Obstetrics [facility], [place] [address] [place] [address] Bam Wilson DO [address] [place] [address] 03/28/2023 1:30 PM EST Imaging Radiology [facility] [place] [address] [place] [address] 04/16/2023 8:30 AM EST Telemedicine Psychiatry, [place] [address] [place] [address] Bam Doe, SOCIAL SCIENCES DEPARTMENT CHAIR [address] [place] [phone] Health Maintenance Due Date Last Done Comments [...]
--- OUTSIDE RECORDS SUMMARY | 2023-08-11 19:38 | External Medical Summary | Summary of Care ---
Author Name Unknown Organization [facility] Address [address] [place] [address] Phone [phone] Care Team Providers Care Medical Auditor Name Role Phone Unavailable Primary Care Provider Unavailabl e Reason for Visit * Reason Comments Return Visit Encounter Details Date Type Department Care Team (Late st Contact Info) Description 03/06/2023 2:15 PM EST Office Visit Gynecology/Obstetric s [facility] [address] [place] [address] Zhanna Noble CRNP [address] [place] [address] Uterine fibroid in *; Encounter for supervision of normal first in second trimester; Obesity affecting , antepartum, unspecified obesity [...] money to get more. Never true 01/15/2023 [place] Depression Scale Answer Date Recorded [place] Depression Scale Total 4 01/29/2023 The thought [...] Sign Reading Time Taken Comments Blood Pressure 120/78 03/06/2023 1:53 PM EST Pulse - - Temperature - - Respiratory Rate - - Oxygen Saturation - - Inhaled Oxygen Concentration - - Weight 93 kg (205 lb) 03/06/2023 1:53 PM EST Height 165.1 cm (5' 5") 03/06/2023 1:53 PM EST Body Mass Index 34.11 03/06/2023 1:53 PM EST documented in this encounter Progress Notes * Zhanna Noble CRNP - 03/06/2023 2:34 PM EST 14w3d Having gas and heartburn. Discussed meds safe in . Flying to [place] tomorrow. Planning to wear compression stockings, wearing a mask. Early glucola today. Declines genetics. RAULITO Tariq * Noa Tapia LPN - 03/06/2023 2:14 PM EST 14w3d Pt denies any concerns. documented in this encounter Plan of Treatment Upcoming Encounters Date Type Department Care Team (Late st Contact Info) Description 03/28/2023 1:30 PM EST Office Visit Fiberglass Fabricator Obstetrics [facility], [address] [address] Bam Wilson, [address] [place] [address] 03/28/2023 1:30 PM EST Imaging Radiology [facility] [place] [address] [place] [address] 04/03/2023 3:15 PM EST Office Visit Gynecology/Obstetrics [facility] [address] [facility] [place] [address] Zhanna Noble CRNP [address] [place] [address] 04/16/2023 8:30 AM EST Telemedicine Psychiatry, [place] [address] [place] [address] Bam Doe CRNP [address] [place] [address] Health Maintenance Due Date Last [...] in second trimester Supervision of normal first Obesity affecting , antepartum, unspecified obesity type Anxiety during documented in this encounter
[2023-08-11] MEDS: LACTATED RINGER'S 1,000 ML IV PRN (19:45)
[2023-08-11] MEDS: PENICILLIN GK 6 MU in DEXTROSE 5% 250 ML IV STA (20:06)
[2023-08-11] MEDS ORDERED: SODIUM CHLORIDE 0.9% 250 ML IV PRN ×2 (20:06→20:07)
[2023-08-11 20:28] LABS: Hematocrit (blood only) 37.4 % (37.0-47.0); Hemoglobin 13.5 g/dl (12.0-16.0); Mean Corpuscular Hgb Conc 36.1 g/dL (32.0-36.0); Mean Platelet Volume 9.6 fL (9.4-12.4); Platelet Count 287 K/uL (130-400); RDW Coefficient of Variation 14.6 % (11.5-14.5); RDW Standard Deviation 45.8 fL (36.4-46.3); Red Blood Count 4.35 M/uL (4.20-5.40); White Blood Count 11.34 K/ul (4.8-10.8)
[2023-08-11] MEDS ORDERED: LIDOCAINE 2% MPF LOCAL 5 ML VIAL EPI PRN (20:52)
[2023-08-11] MEDS ORDERED: diphenhydrAMINE 50 MG/ML VIAL IV PRN (20:52)
[2023-08-11] MEDS ORDERED: fentANYL 2 MCG/ML BUPIVacaine 0.125%-NSS 100ML BAG EPI PRN (20:52)
[2023-08-11] MEDS ORDERED: fentaNYL citrate PF 100 MCG/2 ML VIAL EPI PRN (20:52)
[2023-08-11] MEDS ORDERED: NALOXONE HCL 1 MG in SODIUM CHLORIDE 0.9% 1,000 ML IV PRN (20:52)
[2023-08-11] MEDS ORDERED: NALBUPHINE HCL 5 MG in SYRINGE 0 ML IV PRN (20:52)
[2023-08-11] MEDS ORDERED: BUPIVACAINE 0.25% PF 30 ML VIAL EPI PRN (20:52)
[2023-08-11] MEDS ORDERED: ROPIVACAINE 0.5% PF 5 MG/ML 20 ML VIAL EPI PRN (20:52)
[2023-08-11] MEDS ORDERED: SODIUM CHLORIDE 0.9% PF INJ 10 ML VIAL EPI PRN (20:52)
[2023-08-11] MEDS ORDERED: ePHEDrine sulfate 50 MG/ML AMP IV PRN (20:52)
[2023-08-11] MEDS ORDERED: NALOXONE HCL 0.4 MG/1 ML VIAL/CARP IV PRN (20:52)
--- NOTE | 2023-08-11 20:55 | Anesthesiology Consultation ---
Date of Service August 11, 2023 Assessment & Plan Chart Review Chart Review: Acceptable Risk for Labor Epidural History Height/Weight Height: 5 ft 4 in Weight: 93.4 kg Allergies Allergy/AdvReac Type Severity Reaction Status Date / Time tetanus and diphtheria Allergy Unknown Verified 08/11/23 19:42 toxoids Medications Home Medications Medication Instructions Recorded Confirmed Last Taken PNV#14-iron [id number] 1 cap PO DAILY 08/11/23 08/11/23 08/11/23 09:00 27 mg iron-1 mg-300 mg-50 mg capsule ferrous sulfate 325 mg (65 mg 325 mg PO DAILY 08/11/23 08/11/23 08/10/23 21:00 iron) tablet (iron) sertraline 100 mg tablet 100 mg PO DAILY 08/11/23 08/11/23 08/11/23 09:00 Active Medications Generic Name Dose Route Start Last Admin Trade Name Freq PRN Reason Stop Dose Admin Lactated Ringer's 1,000 mls @ 125 mls/hr 08/11/23 19:34 08/11/23 20:48 Lr IV 08/13/23 19:33 125 mls/hr .Q8H PRN Administration L&D Protocol Protocol Social History Smoking Status: Never smoker Hx Alcohol Use: No Hx Substance Use: No Physical Exam Vital Signs Last Vital Signs Temp 36.6 C 08/11/23 19:37 Pulse 88 08/11/23 20:50 Resp 20 08/11/23 19:37 BP 133/87 08/11/23 20:06 Pulse Ox 100 08/11/23 20:50 Constitutional WD/WN, vitals as above Respiratory normal respiratory effort, lungs clear to auscultation Cardiovascular RRR, no murmur, no edema Gastrointestinal (Abdomen) normal bowel sounds, soft, nontender, no hepatosplenomegaly Testing Laboratory Results 08/11/23 20:01 08/11/23 19:48 POC Glucose 86
[2023-08-11] MEDS: LIDOCAINE 2%/EPINEPHRINE 1:200,000 20 ML PF ONE (21:33)
[2023-08-11] MEDS: fentANYL 2 MCG/ML BUPIVacaine 0.125%-NSS 100ML BAG ONE (21:34)
[2023-08-11 21:48] LABS: Albumin Globulin Ratio 1.1 (0.9-2); Albumin Level 3.6 gm/dl (3.4-5.0); BUN Creatinine Ratio 13.6 (10-20); Bilirubin,Total 0.4 mg/dl (0.2-1.0); Calcium 9.2 mg/dl (8.6-10.3); Creatinine Clr Calc Pharmacy 148.9 ml/min; Est GFR (African American) 138.6 ml/min; Est GFR (Non-African American) 119.6 ml/min; Globulin 3.2 gm/dl (2.5-4.0); Potassium 3.9 mmol/L (3.5-5.1); Total Protein 6.8 gm/dl (6.0-8.3)
[2023-08-11] MEDS: OXYTOCIN 30 UNITS/NSS 30 UNITS/500 ML BAG IV PRN (21:51)
[2023-08-11] MEDS ORDERED: OXYTOCIN 30 UNITS/NSS 30 UNITS/500 ML BAG IV PRN (22:03)
[2023-08-11] MEDS ORDERED: ACETAMINOPHEN 325 MG TAB PO PRN (22:03)
[2023-08-11] MEDS ORDERED: HYDROCORTISONE ACETATE 25 MG SUPP PR PRN (22:03)
--- NOTE | 2023-08-11 22:06 | Delivery Summary ---
Vaginal Delivery Summary Date of Service August 11, 2023 Vaginal Delivery Summary Delivery Note History synopsis: Patient is a pleasant 32-year-old G1, P0 at 37 weeks and 0 days who presented for ongoing contractions and rupture of membranes. Upon admission she was 7 and then changed to 8 cm. Cephalic confirmed by ultrasound. She received an epidural for pain control. She was found to be complete with the head at the introitus after receiving the epidural. I was called for delivery Delivery Summary: Patient was placed in the dorsal lithotomy position. She was prepped and draped in the usual sterile fashion. Upon maternal pushing the head was delivered atraumatically followed by the anterior shoulders, posterior shoulders then the remainder of the infants body. The infant was immediately placed on mother's abdomen, dried and stimulated. Delayed cord clamping for 60 seconds was performed. The infants mouth and nose were bulb suctioned by nursing staff. A male was delivered at 2149, weight pending with APGARS of 8 at 1 minute and 9 at 5 minutes. The infant was handed off to the awaiting nursing staff. Cord blood gases were not obtained. The placenta delivered intact with three vessel cord at 2151. Placenta was sent to pathology ([facility]). Thirty units of Pitocin were added to the IV fluid and allowed to run freely. Uterine massage was performed until uterus was deemed firm. Upon inspection of the perineum, first degree laceration was noted which was repaired with 3-0 vicryl in the usual fashion. Upon re-inspection the patient was hemostatic. Uterus again massaged and found to be firm. Needle and sponge counts were correct. Patient was stable and allowed to recover in L&D room. was stable and remained in room with mother in the labor and delivery unit. EBL 300 mls QBL pending
[2023-08-11] MEDS ORDERED: PENICILLIN GK 3 MU in DEXTROSE 5% 100 ML IV PRN (22:34)
[2023-08-11] MEDS: DIPHTHER/TETAN/PERTUS Vaccine (Tdap, Adol/Adult) 0.5mL IM ONE (23:34)
[2023-08-12] MEDS: BENZOCAINE 20% SPRY 85 APPLN/85 GM CAN EXT PRN (00:15)
[2023-08-12] MEDS: ePHEDrine sulfate 50 MG/ML AMP ONE (00:54)
[2023-08-12] MEDS: fentaNYL citrate PF 100 MCG/2 ML VIAL ONE (00:54)
[2023-08-12] MEDS: fentaNYL citrate PF 100 MCG/2 ML VIAL EPI STA (00:55)
[2023-08-12] MEDS: BUPIVACAINE 0.25% PF 30 ML VIAL EPI STA (00:55)
[2023-08-12] MEDS: BUPIVACAINE 0.25% PF 30 ML VIAL ONE (00:55)
[2023-08-12] MEDS: SODIUM CHLORIDE 0.9% PF INJ 10 ML VIAL ONE (00:55)
[2023-08-12] MEDS: LIDOCAINE 2%/EPINEPHRINE 1:200,000 20 ML PF EPI STA (00:56)
[2023-08-12] MEDS: SODIUM CHLORIDE 0.9% PF INJ 10 ML VIAL EPI STA (00:56)
[2023-08-12] MEDS: IBUPROFEN 600 MG TAB PO PRN (04:12)
[2023-08-12 06:43] LABS: Hematocrit (blood only) 30.5 % (37.0-47.0); Hemoglobin 10.3 g/dl (12.0-16.0); Mean Corpuscular Hemoglobin 29.1 pg (25.0-34.0); Mean Corpuscular Hgb Conc 33.8 g/dL (32.0-36.0); Mean Corpuscular Volume 86.2 fL (80.0-100.0); Mean Platelet Volume 9.6 fL (9.4-12.4); Platelet Count 240 K/uL (130-400); RDW Coefficient of Variation 14.6 % (11.5-14.5); RDW Standard Deviation 45.9 fL (36.4-46.3); Red Blood Count 3.54 M/uL (4.20-5.40); White Blood Count 13.52 K/ul (4.8-10.8)
[2023-08-12 07:21] LABS: Estimated Average Glucose 97 mg/dl
--- NOTE | 2023-08-12 08:45 | Obstetrical Progress Note ---
Date of Service August 12, 2023 Assessment & Plan Admission and Anticipated Discharge Date Admission Date: August 11, 2023 Subjective Patient is seen and examined. She feels well, no complaints. Ambulating without dizziness Voiding without difficulty Tolerating regular diet with out N&V Bleeding is minimal No fever/ chills/ CP/ SOB/ N&V/ Leg pain Breast feeding without problems Vital Signs Height Weight Body Mass Index Blood Pressure Blood Pressure Position Temperature Temperature Source 5 ft 4 in 93.4 kg 35.3 133/88 Sitting 37.0 C Oral 08/11/23 21:12 08/11/23 21:12 08/11/23 19:37 08/12/23 03:35 08/12/23 03:35 08/12/23 03:35 08/12/23 03:35 Pulse Rate Respiratory Rate Pulse Oximetry 93 H 18 99 08/12/23 03:35 08/12/23 03:35 08/12/23 03:35 Lab Results 08/11/23 08/11/23 08/12/23 Range/Units 19:48 20:01 05:48 WBC 11.34 H 13.52 H (4.8-10.8) K/ul RBC 4.35 3.54 L (4.20-5.40) M/uL Hgb 13.5 10.3 L D (12.0-16.0) g/dl Hct 37.4 30.5 L (37.0-47.0) % MCV 86.0 86.2 (80.0-100.0) fL MCH 31.0 29.1 (25.0-34.0) pg MCHC 36.1 H 33.8 (32.0-36.0) g/dL RDW Std Deviation 45.8 45.9 (36.4-46.3) fL RDW Coeff of Marek 14.6 H 14.6 H (11.5-14.5) % Plt Count 287 240 (130-400) K/uL MPV 9.6 9.6 (9.4-12.4) fL Sodium 131 L (136-145) mmol/L Potassium 3.9 (3.5-5.1) mmol/L Chloride 100 (98-107) mmol/L Carbon Dioxide 18 L (21-32) mmol/L Anion Gap 13 H (3-11) BUN 8 (6-23) mg/dl Creatinine 0.59 L (0.6-1.2) mg/dl Est Cr Clr Drug Dosing 148.9 ml/min Est GFR ( Amer) 138.6 ml/min Est GFR (Non-Af Amer) 119.6 ml/min BUN/Creatinine Ratio 13.6 (10-20) Glucose 82 (70-99(Fasting)) mg/dl POC Glucose 86 (70-99) mg/dl Fasting Glucose 75 (70-99) mg/dl Estimat Average Glucose 97 mg/dl Hemoglobin A1c 5.0 (4.5-5.6) % Calcium 9.2 (8.6-10.3) mg/dl Total Bilirubin 0.4 (0.2-1.0) mg/dl AST 17 (13-39) U/L ALT 12 (7-52) U/L Alkaline Phosphatase 190 H (34-104) U/L Total Protein 6.8 (6.0-8.3) gm/dl Albumin 3.6 (3.4-5.0) gm/dl Globulin 3.2 (2.5-4.0) gm/dl Albumin/Globulin Ratio 1.1 (0.9-2) Blood Type O Positive Antibody Screen NEGATIVE Crossmatch See Detail PE: General: Alert, orientedx3, NAD Abd: soft, NT, fundus firm, below Umbilicus, palpable large fibroids Perineum intact, Lochia rubra minimal Ext; NT, no edema AP: 32 yo s/p , ppd# 1 VSS Afebrile doing well Continue routine care All questions were answered D/C home tomorrow Results & Data Vital Signs (Past 12 Hours) Vital Signs Temp Pulse Pulse Resp BP BP Pulse Ox 08/12/23 03:35 37.0 C 93 H 18 133/88 99 08/12/23 00:50 37.0 C 90 18 130/88 98 08/12/23 00:09 93 H 135/81 08/11/23 23:32 83 137/83 08/11/23 23:09 89 136/75 08/11/23 22:46 90 97 08/11/23 22:41 99 08/11/23 22:41 88 08/11/23 22:41 90 130/75 08/11/23 22:36 92 H 100 08/11/23 22:31 100 08/11/23 22:31 93 H 08/11/23 22:31 94 H 127/71 08/11/23 22:26 88 136/67 100 08/11/23 22:21 96 H 161/119 H 99 08/11/23 22:16 93 H 100 08/11/23 22:11 88 100 08/11/23 22:10 78 137/68 08/11/23 22:07 87 138/92 08/11/23 22:06 90 68 L 08/11/23 22:04 105 H 77 L 08/11/23 22:02 98 H 177/74 H 08/11/23 22:01 99 H 96 08/11/23 22:00 96 H 116/57 L 08/11/23 21:58 117/69 08/11/23 21:56 99 08/11/23 21:56 96 H 08/11/23 21:56 96 H 112/77 08/11/23 21:54 96 H 110/72 08/11/23 21:52 96 H 111/74 08/11/23 21:51 91 H 95 08/11/23 21:50 148/105 H 08/11/23 21:46 109 H 100 08/11/23 21:45 111 H 78 L 08/11/23 21:43 116 H 146/77 H 08/11/23 21:42 100 H 149/72 H 08/11/23 21:41 100 H 84 L 08/11/23 21:40 100 H 73 L 08/11/23 21:35 89 133/77 99 08/11/23 21:34 90 131/75 08/11/23 21:31 90 145/75 H 08/11/23 21:30 105 H 100 08/11/23 21:29 90 135/70 08/11/23 21:27 93 H 139/71 08/11/23 21:26 86 143/77 H 08/11/23 21:25 94 H 100 08/11/23 21:24 100 H 140/70 08/11/23 21:22 96 H 138/62 08/11/23 21:20 100 08/11/23 21:20 93 H 08/11/23 21:20 99 H 152/71 H 08/11/23 21:18 110 H 148/71 H 04/28/24 21:16 107 H 160/95 H 08/11/23 21:15 96 H 99 08/11/23 21:14 113 H 151/89 H 08/11/23 21:12 103 H 167/90 H 08/11/23 21:11 102 H 172/97 H 08/11/23 21:10 100 H 98 08/11/23 21:09 85 134/92 08/11/23 21:05 90 91 08/11/23 21:00 98 H 100 08/11/23 20:59 98 H 74 L 08/11/23 20:55 92 H 100 08/11/23 20:50 88 100 08/11/23 20:45 90 100 O2 Del Method 08/12/23 03:35 Room Air 08/12/23 00:50 Room Air 08/12/23 00:09 08/11/23 23:32 08/11/23 23:09 08/11/23 22:46 08/11/23 22:41 08/11/23 22:41 08/11/23 22:41 08/11/23 22:36 08/11/23 22:31 08/11/23 22:31 08/11/23 22:31 08/11/23 22:26 08/11/23 22:21 08/11/23 22:16 08/11/23 22:11 08/11/23 22:10 08/11/23 22:07 08/11/23 22:06 08/11/23 22:04 08/11/23 22:02 08/11/23 22:01 08/11/23 22:00 08/11/23 21:58 08/11/23 21:56 08/11/23 21:56 08/11/23 21:56 08/11/23 21:54 08/11/23 21:52 08/11/23 21:51 08/11/23 21:50 08/11/23 21:46 08/11/23 21:45 08/11/23 21:43 08/11/23 21:42 08/11/23 21:41 08/11/23 21:40 08/11/23 21:35 08/11/23 21:34 08/11/23 21:31 08/11/23 21:30 08/11/23 21:29 08/11/23 21:27 08/11/23 21:26 08/11/23 21:25 08/11/23 21:24 08/11/23 21:22 08/11/23 21:20 08/11/23 21:20 08/11/23 21:20 08/11/23 21:18 08/11/23 21:16 08/11/23 21:15 08/11/23 21:14 08/11/23 21:12 08/11/23 21:11 08/11/23 21:10 08/11/23 21:09 08/11/23 21:05 08/11/23 21:00 08/11/23 20:59 08/11/23 20:55 08/11/23 20:50 08/11/23 20:45
[2023-08-12] MEDS: PRENATAL VITAMIN 1 TAB PO SCH (08:48)
[2023-08-12] MEDS: SERTRALINE HCL 100 MG TABLET PO SCH (08:48)
[2023-08-12] MEDS: DOCUSATE SODIUM 100 MG CAP PO SCH (08:48)
[2023-08-12] MEDS: FERROUS SULFATE 325 MG TAB PO SCH (08:48)
--- NOTE | 2023-08-12 13:00 | Anesthesia Procedure Note ---
Date of Service August 12, 2023 Anesthesia Post Epidural Note Vital Signs Vital Signs: Temp Pulse Resp BP Pulse Ox O2 Del Method 36.9 C 91 H 16 116/76 96 Room Air 08/12/23 12:30 08/12/23 12:30 08/12/23 12:30 08/12/23 12:30 08/12/23 12:30 08/12/23 12:30 Pain Intensity Lower Abdomen: Pain Intensity: 3 Notes Mental Status: alert / awake / arousable and participated in evaluation Patient Amnestic to Procedure: No Nausea / Vomiting: adequately controlled Pain: adequately controlled Airway Patency, RR, SpO2: stable & adequate BP & HR: stable & adequate Hydration State: stable & adequate Neuraxial Anesthesia: was administered and sensory block resolved Anesthetic Complications: no major complications apparent and Pt Satisfied with anesthetic care Epidural: Removed without complications and With tip intact
[2023-08-12] MEDS: bisacodyL 5 MG TABEC PO SCH (20:05)
[2023-08-13 08:27] LABS: Hematocrit (blood only) 30.8 % (37.0-47.0); Hemoglobin 10.8 g/dl (12.0-16.0)
--- NOTE | 2023-08-13 12:00 | Obstetrical Progress Note ---
Date of Service August 13, 2023 Subjective Ambulation: ambulating normally Voiding: no voiding problems Passing Gas:: Yes Diet Tolerance:: regular diet Lochia:: Small Feeding Type:: breast feeding Current Pain Level(1-10): 0 doing well Physical Exam Constitutional WD/WN, vitals as above Gastrointestinal (Abdomen) Inspection/Auscultation: abdomen normal to inspection fundus firm below U abdomen soft and non-tender Musculoskeletal Extremities: extremities normal to inspection Skin no rashes, warm and dry Neurologic patellar DTR's 2+ bilat, sensation intact Psychiatric A+Ox3, euthymic affect Results & Data Vital Signs (Past 12 Hours) Vital Signs Temp Pulse Resp BP Pulse Ox O2 Del Method 08/13/23 10:54 37.3 C 98 H 18 121/75 97 08/13/23 07:40 37.3 C 98 H 18 121/75 97 Room Air Laboratory Results 08/11/23 08/11/23 08/12/23 19:48 20:01 05:48 WBC 11.34 H 13.52 H RBC 4.35 3.54 L Hgb 13.5 10.3 L D Hct 37.4 30.5 L MCV 86.0 86.2 MCH 31.0 29.1 MCHC 36.1 H 33.8 RDW Std Deviation 45.8 45.9 RDW Coeff of Marek 14.6 H 14.6 H Plt Count 287 240 MPV 9.6 9.6 Sodium 131 L Potassium 3.9 Chloride 100 Carbon Dioxide 18 L Anion Gap 13 H BUN 8 Creatinine 0.59 L Est Cr Clr Drug Dosing 148.9 Est GFR ( Amer) 138.6 Est GFR (Non-Af Amer) 119.6 BUN/Creatinine Ratio 13.6 Glucose 82 POC Glucose 86 Fasting Glucose 75 Estimat Average Glucose 97 Hemoglobin A1c 5.0 Calcium 9.2 Total Bilirubin 0.4 AST 17 ALT 12 Alkaline Phosphatase 190 H Total Protein 6.8 Albumin 3.6 Globulin 3.2 Albumin/Globulin Ratio 1.1 RPR Nonreactive Blood Type O Positive Antibody Screen NEGATIVE Crossmatch See Detail 08/13/23 07:55 WBC RBC Hgb 10.8 L Hct 30.8 L MCV MCH MCHC RDW Std Deviation RDW Coeff of Marek Plt Count MPV Sodium Potassium Chloride Carbon Dioxide Anion Gap BUN Creatinine Est Cr Clr Drug Dosing Est GFR ( Amer) Est GFR (Non-Af Amer) BUN/Creatinine Ratio Glucose POC Glucose Fasting Glucose 78 Estimat Average Glucose Hemoglobin A1c Calcium Total Bilirubin AST ALT Alkaline Phosphatase Total Protein Albumin Globulin Albumin/Globulin Ratio RPR Blood Type Antibody Screen Crossmatch
[2023-08-13] MEDS ORDERED: bisacodyL 10 MG SUPP PR PRN (22:03)
== END 2023-08-13 14:20 | disposition home or self-care (01) | DRG 807 ==
LOC: OPB 19:23 → 4S1 19:33 → 4E2 08-12 01:06